=== PATIENT | female | born 1960 | race Asian ===

== ENCOUNTER 2016-08-27 22:49 | Emergency (ER) | payer OTHER ==
[~2016-08-27] VITALS: Ht 160 cm; Wt 75.7 kg
[~2016-08-27 22:49] MED LIST: AMLODIPINE BESYL5 MG ORAL; ASPIRIN81 MG ORAL; ATORVASTATIN CA20 MG ORAL; CYCLOBENZAPRINE10 MG ORAL; IBUPROFEN600 MG ORAL; KEFLEX500 MG PO; NORCO 5-325 TA1 EAC1 ORAL; ONDANSETRON ODT4 MG PO; PHENAZOPYRIDIN100 MG PO; SPIRONOLACTONE50 MG PO; TRAMADOL HCL50 MG ORAL; VICODIN 5-5001 EACH PO; cranberry PO
[2016-08-27] MEDS ORDERED: AMLODIPINE BES2.5 MG ORAL (23:05)
[2016-08-27] MEDS ORDERED: Norco 5mg/325mg tab ORAL ONE (23:45)
[2016-08-28 00:40] VITALS: BP 134/88
[2016-08-28 00:48] VITALS: BP 134/88
[2016-08-28] MEDS ORDERED: IBUPROFEN600 MG ORAL (00:49)
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
--- NOTE | 2016-08-28 11:45 | Diagnostic Imaging Report ---
Indication: PAIN Technique: 3 views of the cervical spine Comparison: none Findings: Bony alignment is normal. No prevertebral soft tissue swelling. Vertebral heights and disc spaces are preserved. No acute fractures. No dislocations. Impression: Negative
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
== END 2016-08-28 00:50 | disposition home or self-care (01) ==
LOC: EMR 23:15
DX: S16.1XXA Strain of muscle, fascia and tendon at neck level, initial encounter (principal); S39.012A Strain of muscle, fascia and tendon of lower back, initial encounter; E78.5 Hyperlipidemia, unspecified; I10 Essential (primary) hypertension; E11.9 Type 2 diabetes mellitus without complications; Z86.73 Personal history of transient ischemic attack (TIA), and cerebral infarction without residual deficits; Z88.0 Allergy status to penicillin; V43.52XA Car driver injured in collision with other type car in traffic accident, initial encounter; Y92.410 Unspecified street and highway as the place of occurrence of the external cause; Y99.8 Other external cause status
CPT/HCPCS: 72020; 72040; 99283

== ENCOUNTER 2019-06-24 00:31 | Inpatient (IN) | payer OTHER, MEDICAID ==
[~2019-06-24] VITALS: Ht 160 cm; Wt 79.4 kg
[~2019-06-24 00:31] MED LIST changes: +AMLODIPINE BES2.5 MG ORAL
--- NOTE | 2019-06-24 00:50 | NUR ---
ED Nurse Note: PT WALKED IN TO ED C/O CP, SOB. PT STATES VISITING URGENT CARE AND WAS TOLD THAT SHE HAS BRONCHITIS. PT NAD, TACHY 105. PT FAMILY AT BEDSIDE. PATIENT TEMP 99.3 AT BEDSIDE. PT DENIES N/V. WILL CONTINUE TO MONITOR PATIENT.
--- NOTE | 2019-06-24 01:00 | NUR ---
ED Nurse Note: URINE AND BLOOD COLLECTED AND SENT TO LAB.
--- NOTE | 2019-06-24 01:05 | NUR ---
ED Nurse Note: XR AT BEDSIDE.
[2019-06-24 01:10] LABS: BASOPHILS % (AUTO) 1.5 % (0.0-2.0); EOSINOPHILS % (AUTO) 0.4 % (0.0-3.0); HEMATOCRIT 38.9 % (37.0-47.0); HEMOGLOBIN 13.2 G/DL (12.0-16.0); LYMPHOCYTES % (AUTO) 6.5 % (20.0-45.0); MEAN CORPUSCULAR VOLUME 86 FL (80-99); NEUTROPHILS % (AUTO) 84.5 % (45.0-75.0); PLATELET COUNT 288 K/UL (150-450); RED BLOOD COUNT 4.53 M/UL (4.20-5.40); RED CELL DISTRIBUTION WIDTH 11.6 % (11.6-14.8); WHITE BLOOD COUNT 11.1 K/UL (4.8-10.8)
[2019-06-24 01:20] LABS: ANION GAP 13 mmol/L (5-15); BLOOD UREA NITROGEN 11 mg/dL (7-18); CALCIUM 8.5 MG/DL (8.5-10.1); CARBON DIOXIDE 25 MMOL/L (21-32); CHLORIDE 101 MMOL/L (98-107); CREATININE 0.9 MG/DL (0.55-1.30); POTASSIUM 3.9 MMOL/L (3.5-5.1); SODIUM 138 MMOL/L (136-145)
[2019-06-24 01:31] LABS: ALANINE AMINOTRANSFERASE 95 U/L (12-78); ALBUMIN 3.9 G/DL (3.4-5.0); ALKALINE PHOSPHATASE 70 U/L (46-116); ASPARTATE AMINO TRANSFERASE 53 U/L (15-37); BILIRUBIN,TOTAL 0.2 MG/DL (0.2-1.0); CREATINE KINASE 81 U/L (26-308); PHOSPHORUS 3.1 MG/DL (2.5-4.9)
[2019-06-24 01:32] LABS: INR 0.9 (0.9-1.1)
[2019-06-24] MEDS ORDERED: Oseltamivir 75mg cap ORAL STA (01:55)
--- NOTE | 2019-06-24 01:57 | Emergency Room Report ---
History of Present Illness General Chief Complaint: Chest Pain Source: Patient Present Illness HPI Patient has been ill for 8 days. She was treated with a Z-Gustabo. She continues to have a persistent cough muscle aches fevers chills. She did not receive influenza vaccination this year. She has mild chest pain and pressure with coughing. There are more muscle aches. She rates the pain 8/10 and generalized. Her appetite is poor and she feels generalized weakness. No palpitations, nausea, vomiting, diarrhea, dysuria, abdominal pain, shortness of breath, rashes, depression, anxiety, visual changes, dizziness. Allergies: Coded Allergies: PENICILLIN G (Verified Allergy, Mild, RESPIRATORY DISTRESS, 09/16/09) Patient History Past Medical History: see triage record Past Surgical History: hysterectomy Social History: Denies: smoking, alcohol use, drug use Social History Narrative Cares for disabled patients Now: No Reviewed Nursing Documentation: PMH: Agreed; PSxH: Agreed Nursing Documentation-PMH Hx Cardiac Problems: Yes Hx Hypertension: Yes Hx Diabetes: Yes Hx Cancer: No Hx Gastrointestinal Problems: No Hx Neurological Problems: Yes Hx Cerebrovascular Accident: Yes - 24 years ago Review of Systems All Other Systems: negative except mentioned in HPI Physical Exam Vital Signs Date Time Temp Pulse Resp B/P (MAP) Pulse Ox O2 Delivery O2 Flow Rate FiO2 06/24/19 00:40 87 18 127/78 (94) 96 Room Air Sp02 EP Interpretation: reviewed, normal General Appearance: no apparent distress, alert, GCS 15, other - Ill-appearing Head: normocephalic Eyes: bilateral eye normal inspection, bilateral eye PERRL, bilateral eye EOMI ENT: moist mucus membranes, pharyngeal erythema Neck: supple, no meningismus Respiratory: chest non-tender, lungs clear, normal breath sounds Cardiovascular #1: regular rate, rhythm, no edema Cardiovascular #2: 2+ radial (R) Gastrointestinal: normal inspection, normal bowel sounds, non tender, no mass, non-distended Genitourinary: no CVA tenderness Musculoskeletal: back normal, normal range of motion, no calf tenderness, gait/ station normal Neurologic: alert, oriented x3, speech normal, grossly normal Psychiatric: mood/affect normal Skin: no rash, warm/dry - Feels febrile Medical Decision Making Diagnostic Impression: Primary Impression: Influenza A Additional Impression: Elevated lactic acid level ER Course Patient presents with febrile illness and muscle aches after taking a Z-Gustabo a week ago. Differential includes pneumonia, sepsis, influenza, other viral infection, urinary tract infection amongst others. Patient evaluated with EKG, chest x-ray and labs. Patient treated with Tylenol and IV hydration. Fluid resuscitation begun. Patient placed on surveillance monitor. EKG without injury. Chest x-ray no infiltrates. Labs with normal white count. CMP unremarkable aside from minimally elevated glucose. Called with positive influenza A. In addition lactic acid of 2.6 noted. Fluid bolus was given. Tamiflu ordered. 1:56 patient with good capillary refill, normal mentation and improvement after Tylenol and fluid administration. No indication for other antibiotics at this time. (Sepsis reevaluation) Patient improved and admitted to the hospital. Laboratory Tests Test 06/24/19 00:50 06/24/19 02:30 06/24/19 02:50 White Blood Count 11.1 K/UL (4.8-10.8) H Red Blood Count 4.53 M/UL (4.20-5.40) Hemoglobin 13.2 G/DL (12.0-16.0) Hematocrit 38.9 % (37.0-47.0) Mean Corpuscular Volume 86 FL (80-99) Mean Corpuscular Hemoglobin 29.2 PG (27.0-31.0) Mean Corpuscular Hemoglobin Concent 34.1 G/DL (32.0-36.0) Red Cell Distribution Width 11.6 % (11.6-14.8) Platelet Count 288 K/UL (150-450) Mean Platelet Volume 6.5 FL (6.5-10.1) Neutrophils (%) (Auto) 84.5 % (45.0-75.0) H Lymphocytes (%) (Auto) 6.5 % (20.0-45.0) L Monocytes (%) (Auto) 7.0 % (1.0-10.0) Eosinophils (%) (Auto) 0.4 % (0.0-3.0) Basophils (%) (Auto) 1.5 % (0.0-2.0) Prothrombin Time 10.0 SEC (9.30-11.50) Prothrombin Time INR 0.9 (0.9-1.1) Activated Partial Thromboplast Time 27 SEC (23-33) Sodium Level 138 MMOL/L (136-145) Potassium Level 3.9 MMOL/L (3.5-5.1) Chloride Level 101 MMOL/L (98-107) Carbon Dioxide Level 25 MMOL/L (21-32) Anion Gap 13 mmol/L (5-15) Blood Urea Nitrogen 11 mg/dL (7-18) Creatinine 0.9 MG/DL (0.55-1.30) Estimate Glomerular Filtration Rate > 60 mL/min (>60) Glucose Level 144 MG/DL (74-106) H Lactic Acid Level 2.60 mmol/L (0.4-2.0) H 2.10 mmol/L (0.66-2.22) Calcium Level 8.5 MG/DL (8.5-10.1) Phosphorus Level 3.1 MG/DL (2.5-4.9) Magnesium Level 1.8 MG/DL (1.8-2.4) Total Bilirubin 0.2 MG/DL (0.2-1.0) Aspartate Amino Transferase (AST) 53 U/L (15-37) H Alanine Aminotransferase (ALT) 95 U/L (12-78) H Alkaline Phosphatase 70 U/L (46-116) Total Creatine Kinase 81 U/L (26-308) Troponin I 0.000 ng/mL (0.000-0.056) Pro-B-Type Natriuretic Peptide 38 pg/mL (0-125) Total Protein 7.8 G/DL (6.4-8.2) Albumin 3.9 G/DL (3.4-5.0) Globulin 3.9 g/dL Albumin/Globulin Ratio 1.0 (1.0-2.7) Lipase 128 U/L (73-393) Urine Color Pale yellow Urine Appearance Clear Urine pH 5 (4.5-8.0) Urine Specific [place] 1.015 (1.005-1.035) Urine Protein Negative (NEGATIVE) Urine Glucose (UA) Negative (NEGATIVE) Urine Ketones Negative (NEGATIVE) Urine Blood 2+ (NEGATIVE) H Urine Nitrite Negative (NEGATIVE) Urine Bilirubin Negative (NEGATIVE) Urine Urobilinogen Normal MG/DL (0.0-1.0) Urine Leukocyte Esterase Negative (NEGATIVE) Urine RBC 2-4 /HPF (0 - 2) H Urine WBC 0-2 /HPF (0 - 2) Urine Squamous Epithelial Cells Few /LPF (NONE/OCC) Urine Bacteria None /HPF (NONE) Microbiology Date/Time Source Procedure Growth Status 06/24/19 00:50 Nasal Nares - Final Complete 06/24/19 00:50 Nasal Nares - Final Complete EKG Diagnostic Results Rate: normal Rhythm: NSR ST Segments: no acute changes Rhythm Strip Diag. Results EP Interpretation: yes Rhythm: NSR, no PVC's, no ectopy Chest X-Ray Diagnostic Results Chest X-Ray Diagnostic Results : Chest X-Ray Ordered: Yes # of Views/Limited/Complete: 1 View Indication: Other EP Interpretation: Yes Interpretation: no consolidation, no effusion, no pneumothorax Impression: Other Electronically Signed by: Electronically signed by Dada Schroeder MD Last Vital Signs Date Time Temp Pulse Resp B/P (MAP) Pulse Ox O2 Delivery O2 Flow Rate FiO2 06/24/19 12:04 102.8 105 18 141/73 (95) 95 06/24/19 06:35 Room Air 06/24/19 03:51 98 These VS from floor. Patient was afebrile on admission to floor. Status: improved Disposition: ADMITTED INPATIENT Condition: Serious Referrals: NOT CHOSEN IPA/,REFERRING (PCP) Dada Schroeder MD Jun 24, 2019 01:57
--- NOTE | 2019-06-24 03:00 | NUR ---
ED Nurse Note: REFLEX LACTIC DRAWN AND SENT TO LAB.
[2019-06-24 03:41] LABS: APPEARANCE,URINE CLEAR; BILIRUBIN, URINE NEGATIVE (NEGATIVE); COLOR,URINE PALE YELLOW; GLUCOSE, URINE (UA) NEGATIVE (NEGATIVE); KETONES,URINE NEGATIVE (NEGATIVE); LEUKOCYTE ESTERASE ,URINE NEGATIVE (NEGATIVE); NITRITE,URINE NEGATIVE (NEGATIVE); PH,URINE 5 (4.5-8.0); PROTEIN,URINE NEGATIVE (NEGATIVE); UROBILINOGEN,URINE NORMAL MG/DL (0.0-1.0)
[2019-06-24 03:51] VITALS: BP 126/69
--- NOTE | 2019-06-24 04:00 | NUR ---
ED Nurse Note: GAVE REPORT TO LUDY HERNANDEZ FOR 414-2
--- NOTE | 2019-06-24 04:10 | NUR ---
TRANSFER TO FLOOR: Patient transferred to [facility] via gurney in stable condition accompanied by 1 tech as ordered, per dr. Morales . Report given to Jhon HERNANDEZ. Belongings sent with patient.
[2019-06-24 04:30] VITALS: BP 130/78
--- NOTE | 2019-06-24 05:15 | NUR ---
NURSE NOTES: Patient received from ED. Alert, oriented awake. Respiration is even and unlabored. NO complaint of pain or discomfort at the moment. Skin is warm and dry to touch. patient still in home clothes, prefer to have at the moment. IV site noted. Oriented patient to the room. Call light is at bedside. Will continue plan of care. Will call md for admit orders.
[2019-06-24] MEDS ORDERED: METFORMIN HCL500 M1 ORAL (05:32)
[2019-06-24] MEDS ORDERED: METFORMIN HCL1000 M1 ORAL (05:32)
--- NOTE | 2019-06-24 06:30 | NUR ---
NURSE NOTES: Doctor Andrew made aware of lactic acid, no orders at the moment.
--- NOTE | 2019-06-24 07:26 | NUR ---
HAND-OFF: Report given to JANEEN Rodriguez.
--- NOTE | 2019-06-24 07:40 | NUR ---
NURSE NOTES: Patient received from DAVID Holguin . A/A/Ox4. ambulatory. Respiration is even and unlabored. No complaint of pain or discomfort at the moment. Skin is warm and dry to touch. patient still on her home clothes. instructed to change to hosp gown. refuses for now and will f/u for SCD's. accdg from the central supply they ran out. IV site noted as patent and intact. bed is in the lowest position. siderails are up x2. Call light is at bedside. Will continue plan of care.
[2019-06-24 08:00] VITALS: BP 134/64
--- NOTE | 2019-06-24 10:15 | Diagnostic Imaging Report ---
Indication: Cough Technique: One view of the chest Comparison: 09/07/2013 Findings: Irregular dense 15 x 7 mm opacity projects in the right midlung, not evident previously. Patient is rotated to the right. Hazy opacity in the left hemithorax most likely represents overlying soft tissue. No definite acute infiltrates, effusions, or congestion. The heart size is upper limits of normal. Impression: Irregular dense right lung opacity, possibly calcified, new since 09/07/2013. Further evaluation with CT scan should be considered. No definite acute process Findings discussed by phone with Dr. Lindsay at the time of interpretation
--- NOTE | 2019-06-24 11:30 | NUR ---
NURSE NOTES: patient temp 102.8. applied cooling measures. made a call to Dr. Rahban. Santos awaiting for a call back. will cont to monitor. Addendum: 06/24/19 at 1232 [address] AVILA LVN [address] Morales made aware of the temp. awaiting for a callback.
[2019-06-24 12:04] VITALS: BP 141/73
--- NOTE | 2019-06-24 15:45 | Consultation ---
DATE OF CONSULTATION: 06/24/2019 PULMONARY CONSULTATION CONSULTING PHYSICIAN: Olivier Lindsay M.D. REFERRING PHYSICIAN: Adams Morales M.D. 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 She presented with cough and rhinorrhea. She also reported body aches. She states that she has been in for about a week. She states she has had resident in the facility who has had influenza. She has still has not received the vaccine. The patient was seen and worked up in the emergency room and a subsequent influenza A antigen was found to be positive. The patient is admitted to the hospital for subsequent management and care. PAST MEDICAL HISTORY: Notable for hypertension and diabetes. She denies any cardiac history. No pulmonary issues. She also reports a remote history of CVA. PAST SURGICAL HISTORY: None. ALLERGIES: Allergy to penicillin. REVIEW OF SYSTEMS: Denies any headaches, hematemesis, melena, hematochezia, or weight loss. PHYSICAL EXAMINATION: VITAL SIGNS: Blood pressure 120/70, heart rate 84, respirations 20, she is afebrile with a 90% room air. GENERAL: Reveals a 59-year-old female. HEENT: Unremarkable. CHEST: Clear breath sounds bilaterally. Normal heart sounds. ABDOMEN: Soft. EXTREMITIES: There is no edema. LABORATORY AND DIAGNOSTIC DATA: Lab testing shows white count 11,000, otherwise normal CBC and BMP. Lactic acid 2.6, now 2.1. Glucose 144. Mild elevation of AST and ALT are noted. Coags are negative. Urinalysis is negative. X-ray of chest per report shows clear lung wolfe bilaterally. IMPRESSION: 1. Acute influenza pneumonia/bronchitis. 2. Hypertension. 3. Diabetes. DISCUSSION: Agree with admission and care. The patient needs IV fluids, which will be started. We will initiate Tamiflu. We will follow carefully. Olivier Lindsay M.D. DR: STEFFEN JOB#: [id number] CC:
[2019-06-24 16:00] VITALS: BP 131/69
--- NOTE | 2019-06-24 16:03 | NUR ---
CASE MANAGEMENT:INITIAL REVIEW 40 YR OLD FEMALE FROM HOME CC; CHEST PAIN SI;INFLUENZA A. ELEVATED LACTIC ACID. 102.8 106 20 141/73 95% ON RA WBC 11.1 LAC ACID 2.60 AST 53 ALT 95 IS;ACETAMINOPHEN PO X1 IVF NS BOLUS X1 TAMILFLU PO X1 STAT ADMITTED TO MED SURG MED SURG STATUS DCP;FROM HOME
[2019-06-24] MEDS: Oseltamivir 75mg cap ORAL SCH (17:04)
[2019-06-24] MEDS: Levofloxacin 750mg tab ORAL SCH (17:04)
--- NOTE | 2019-06-24 18:54 | NUR ---
HAND-OFF: Report given to Abdoulaye.
--- NOTE | 2019-06-24 19:30 | NUR ---
NURSE NOTES: Pt. received from JANEEN Grijalva. Pt. AAOx4 on room air, no complaints of pain and no indications of SOB at this time. IV left AC 20g asymptomatic, intact, and patent; running NS 75cc/hr. Bed is low and locked, side rails x2 up, and call light is in reach. Will continue to monitor.
[2019-06-24 20:00] VITALS: BP 110/67
--- NOTE | 2019-06-24 20:13 | General Progress Note ---
Assessment/Plan Assessment/Plan: GI CONSULT Dictated Suspect abnormal LFT due to fever/sepsis Will follow check ultrasound Thank you Theresa Velez MD Subjective Allergies: Coded Allergies: PENICILLIN G (Verified Allergy, Mild, RESPIRATORY DISTRESS, 09/16/09) Objective Last 24 Hour Vital Signs Date Time Temp Pulse Resp B/P (MAP) Pulse Ox O2 Delivery O2 Flow Rate FiO2 06/24/19 16:00 98.9 93 19 131/69 (89) 94 06/24/19 15:37 98.9 06/24/19 15:30 99.5 06/24/19 12:04 102.8 105 18 141/73 (95) 95 06/24/19 08:00 98.6 106 20 134/64 (87) 95 06/24/19 06:35 Room Air 06/24/19 04:30 97.3 95 16 130/78 (95) 98 06/24/19 04:10 99.2 92 18 122/69 98 Room Air 06/24/19 03:51 99.3 92 18 126/69 98 Room Air 06/24/19 03:51 92 18 Room Air 98 06/24/19 01:50 99.3 06/24/19 00:40 87 18 127/78 (94) 96 Room Air Intake and Output 06/23/19 06/24/19 19:00 07:00 Intake Total 4000 ml Balance 4000 ml Intake Oral 0 ml IV Total 4000 ml Laboratory Tests 06/24/19 00:50: White Blood Count 11.1H, Red Blood Count 4.53, Hemoglobin 13.2, Hematocrit 38.9 , Mean Corpuscular Volume 86, Mean Corpuscular Hemoglobin 29.2, Mean Corpuscular Hemoglobin Concent 34.1, Red Cell Distribution Width 11.6, Platelet Count 288, Mean Platelet Volume 6.5, Neutrophils (%) (Auto) 84.5H, Lymphocytes ( %) (Auto) 6.5L, Monocytes (%) (Auto) 7.0, Eosinophils (%) (Auto) 0.4, Basophils (%) (Auto) 1.5, Prothrombin Time 10.0, Prothromb Time International Ratio 0.9, Activated Partial Thromboplast Time 27, Sodium Level 138, Potassium Level 3.9, Chloride Level 101, Carbon Dioxide Level 25, Anion Gap 13, Blood Urea Nitrogen 11, Creatinine 0.9, Estimat Glomerular Filtration Rate > 60, Glucose Level 144H , Lactic Acid Level 2.60H, Calcium Level 8.5, Phosphorus Level 3.1, Magnesium Level 1.8, Total Bilirubin 0.2, Aspartate Amino Transf (AST/SGOT) 53H, Alanine Aminotransferase (ALT/SGPT) 95H, Alkaline Phosphatase 70, Total Creatine Kinase 81, Troponin I 0.000, Pro-B-Type Natriuretic Peptide 38, Total Protein 7.8, Albumin 3.9, Globulin 3.9, Albumin/Globulin Ratio 1.0, Lipase 128 06/24/19 02:30: Lactic Acid Level 2.10 06/24/19 02:50: Urine Color Pale yellow, Urine Appearance Clear, Urine pH 5, Urine Specific [place] 1.015, Urine Protein Negative, Urine Glucose (UA) Negative, Urine Ketones Negative, Urine Blood 2+H, Urine Nitrite Negative, Urine Bilirubin Negative, Urine Urobilinogen Normal, Urine Leukocyte Esterase Negative, Urine RBC 2-4H, Urine WBC 0-2, Urine Squamous Epithelial Cells Few, Urine Bacteria None Height (Feet): 5 Height (Inches): 3.00 Weight (Pounds): 175 Theresa Velez MD Jun 24, 2019 20:13
--- NOTE | 2019-06-24 22:15 | Consultation ---
DATE OF CONSULTATION: 06/24/2019 GASTROENTEROLOGY CONSULTATION CHIEF COMPLAINT: I was asked to see this patient by Dr. Adams Morales for evaluation of abnormal liver tests. HISTORY OF PRESENT ILLNESS: The patient is a pleasant 59-year-old woman who was in her usual state of health until about a week ago when she started having flu-like symptoms. She came to the emergency room when she began too sick and was admitted with diagnosis of influenza. She was also found to have abnormal liver tests, which is new for her. She has had no previous history of hepatitis, abdominal pain, or liver disorders. She had a colonoscopy just a year ago. PAST MEDICAL HISTORY: History of hypercholesterolemia. FAMILY HISTORY: Noncontributory. SOCIAL HISTORY: The patient does not smoke or drink alcohol. REVIEW OF SYSTEMS: Otherwise negative. PHYSICAL EXAMINATION: GENERAL: Debilitated woman seen in her room. HEENT: Normocephalic and atraumatic. Sclerae anicteric. CHEST: Revealed coarse rhonchi. CARDIOVASCULAR: Revealed regular rate. ABDOMEN: Soft and nontender with good bowel sounds. EXTREMITIES: Revealed no edema. LABORATORY DATA: Noted. ASSESSMENT: The patient presents with mild elevation of liver tests in the setting of acute influenza. It is possible that her abnormal liver tests is from acute illness and therefore for the time being, she can be followed conservatively. I will follow her liver tests and also check an abdominal ultrasound to check hepatitis serologies. Should do liver test abnormalities resolve, then no further workup is necessary. If it further persist, then the patient will undergo stepwise liver evaluation. RECOMMENDATIONS: Per above discussion and per orders written in the chart. Thank you for asking me to participate in the care of this patient. Theresa eVlez M.D. DR: [place] JOB#: [id number] CC:
--- NOTE | 2019-06-24 23:00 | Consultation ---
DATE OF CONSULTATION: 06/24/2019 INFECTIOUS DISEASE CONSULTATION CONSULTING PHYSICIAN: Kerwin Pimentel M.D. PRIMARY ATTENDING PHYSICIAN: Adams Morales M.D. REASON FOR CONSULT: Sepsis and influenza A. HISTORY OF PRESENT ILLNESS: This is a 59-year-old [place] female, admitted today complaining of feeling ill, cough, fever, chills, and muscle pain. Has borderline leukocytosis of 11.1. Developed fever of 102.8 with tachycardia of 105. PAST MEDICAL HISTORY: Significant for diabetes and hypertension. MEDICATIONS: Tamiflu, ibuprofen, and sodium chloride. ALLERGIES: Allergic to penicillin. 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 Denies alcohol, drug abuse, or smoking. . Two grownup children. Originally from [place]. REVIEW OF SYSTEMS: Fever, chills, and dry cough. No nausea. No vomiting. No diarrhea. No problem passing urine. PHYSICAL EXAMINATION: VITAL SIGNS: Temperature 102.8, pulse 105, and blood pressure 141/73. GENERAL APPEARANCE: A well-developed, overweight, in no acute distress. HEAD AND NECK: Reynolds conjunctivae. No oral lesion. HEART: Tachycardic. LUNGS: Clear. ABDOMEN: Soft and nontender. EXTREMITIES: She has no edema. LABORATORY AND DIAGNOSTIC DATA: WBC 11.1, hemoglobin 13.2, hematocrit 38.2, and platelets 288,000. Lactic acid was 2.6, went back to normal limits. Has mild elevation in AST and ALT with AST 53 and ALT 95. Glucose is 444. Sodium 138, potassium 3.9, chloride 101, bicarbonate 20, BUN 11, and creatinine 0.9. Influenza A antigen was positive. Chest x-ray showed irregular dense right lung opacity developed since 2013. For the evaluation, a CT scan should be considered. IMPRESSION: Sepsis with fever and tachycardia and borderline leukocytosis. Has influenza A. Has abnormal chest x-ray. Has diabetes and hypertension. Has lactic acidosis. RECOMMENDATION: Continue Tamiflu. We will add Levaquin. We will follow up the clinical course and chest x-ray, maybe the CT scan of the chest. At the end of my exam, I thank Dr. Morales for involving me in the care of this patient. Kerwin Pimentel M.D. DR: AMBAR JOB#: [id number] CC: BAIRON
[2019-06-25] VITALS: BP 145/77
[2019-06-25 04:00] VITALS: BP 140/85
--- NOTE | 2019-06-25 04:30 | History and Physical Report ---
DATE OF ADMISSION: 06/24/2019 HISTORY OF PRESENT ILLNESS: The patient comes in, admitted for influenza virus. The patient has been having cough, myalgia, headache, vomiting, and chills for the past 10 days. The patient took Z-Gustabo without relief. She went to urgent care and was given doxycycline; however, it was not getting better. She was readmitted for influenza pneumonia. The patient feels weak, however, is not in any respiratory distress. The patient also is admitted for the above-mentioned influenza A as well as elevated LFTs as well. Denies jaundice. Denies nausea, vomiting, diarrhea. Denies chills. Denies wheezing. PAST MEDICAL HISTORY: Significant for hyperlipidemia, NIDDM. PAST SURGICAL HISTORY: Hysterectomy. ALLERGIES: To penicillin. MEDICATIONS: Aspirin, Lipitor, metformin. FAMILY HISTORY: Noncontributory. SOCIAL HISTORY: Denies history of smoking, alcohol, or illicit drugs. REVIEW OF SYSTEMS: HEENT: Denies headaches. RESPIRATORY: Denies shortness of breath. Does have cough for the past 10 days. CARDIOVASCULAR: Denies chest pain. GASTROINTESTINAL: Does have vomiting. Denies chills. EXTREMITIES: Denies pain in lower extremities. CENTRAL NERVOUS SYSTEM: The patient is complaining of headache. PHYSICAL EXAMINATION: VITAL SIGNS: Temperature is 98.6, pulse is 106, blood pressure 134/64. HEENT: PERRLA. NECK: Supple. No lymphadenopathy. CHEST: Clear to auscultation. CARDIOVASCULAR: Tachycardic. GASTROINTESTINAL: Soft, nontender, nondistended. No organomegaly. EXTREMITIES: No edema. Moves all four extremities. CENTRAL NERVOUS SYSTEM: Sensory intact to light touch. Reflexes equal on both sides. Moves all four extremities. LABORATORY AND DIAGNOSTIC DATA: WBC of 9.1, hemoglobin 13.2, platelets of 288. Sodium 138, potassium 3.9, BUN of 11, creatinine of 0.9. Lactate of 2.6. ASSESSMENT/PLAN: 1. The patient is being treated for influenza virus. 2. Elevated LFTs. 3. Respiratory insufficiency. 4. Pneumonia. The patient will be basically consulted by Dr. Kerwin Pimentel. Further antibiotics per Dr. Suresh basically. We will monitor the patient closely. The patient is not hypoxic at this point. We will monitor the patient very closely. The patient also has high temperature, elevated LFTs and I have consulted Dr. Kerwin Pimentel and Dr. Velez for the above problems . Adams Morales M.D. DR: Theron JOB#: [id number] CC:
--- NOTE | 2019-06-25 07:00 | NUR ---
NURSE NOTES: Handoff received from DAVID Stanford. Patient received awake and alert and able to make needs known, no acute signs of distress noted. patient IV is clean dry and intact running prescribed fluids. Patient is on contact precautions for Flu. Bed in the low and locked position with call light within reach, will continue to monitor patient.
--- NOTE | 2019-06-25 07:12 | NUR ---
HAND-OFF: Report given to DAVID Maguire.
[2019-06-25 07:27] LABS: ALANINE AMINOTRANSFERASE 82 U/L (12-78); ALBUMIN 3.2 G/DL (3.4-5.0); ALBUMIN/GLOBULIN RATIO 0.8 (1.0-2.7); ALKALINE PHOSPHATASE 56 U/L (46-116); ANION GAP 9 mmol/L (5-15); ASPARTATE AMINO TRANSFERASE 56 U/L (15-37); BILIRUBIN,TOTAL 0.2 MG/DL (0.2-1.0); BLOOD UREA NITROGEN 10 mg/dL (7-18); CARBON DIOXIDE 27 MMOL/L (21-32); CHLORIDE 106 MMOL/L (98-107); CREATININE 0.7 MG/DL (0.55-1.30); POTASSIUM 4.3 MMOL/L (3.5-5.1); SODIUM 142 MMOL/L (136-145)
[2019-06-25 08:00] VITALS: BP 147/79
[2019-06-25] MEDS: Oseltamivir 75mg cap ORAL SCH ×2 (08:39→17:17)
--- NOTE | 2019-06-25 10:31 | Infectious Diseases Prog Note ---
Assessment/Plan Assessment/Plan IMPRESSION: Sepsis with fever and tachycardia and borderline leukocytosis. Influenza A. DM hypertension. lactic acidosis, resolved Abnormal CXR Elevated transaminase RECOMMENDATION: Continue Tamiflu & Levaquin. We will follow abdominal US & CT scan of the chest. Subjective ROS Limited/Unobtainable: No Constitutional: Reports: other - feels slightly better Respiratory: Reports: productive cough Cardiovascular: Reports: no symptoms Gastrointestinal/Abdominal: Reports: no symptoms Genitourinary: Reports: no symptoms Allergies: Coded Allergies: PENICILLIN G (Verified Allergy, Mild, RESPIRATORY DISTRESS, 09/16/09) Objective Vital Signs Last 24 Hour Vital Signs Date Time Temp Pulse Resp B/P (MAP) Pulse Ox O2 Delivery O2 Flow Rate FiO2 06/25/19 08:45 Room Air 06/25/19 08:00 99.9 82 20 147/79 (101) 94 06/25/19 04:00 97.0 86 16 140/85 (103) 96 06/25/19 00:00 98.1 81 16 145/77 (99) 97 06/24/19 21:00 Room Air 06/24/19 20:00 97.7 77 12 110/67 (81) 96 06/24/19 16:00 98.9 93 19 131/69 (89) 94 06/24/19 15:37 98.9 06/24/19 15:30 99.5 06/24/19 12:04 102.8 105 18 141/73 (95) 95 Height (Feet): 5 Height (Inches): 3.00 Weight (Pounds): 175 General Appearance: no acute distress HEENT: mucous membranes moist Respiratory/Chest: lungs clear Cardiovascular: normal rate Abdomen: soft, non tender Extremities: no edema Neurologic/Psychiatric: alert, oriented x 3, responsive Microbiology Date/Time Source Procedure Growth Status 06/24/19 00:50 Blood Blood Culture - Preliminary NO GROWTH AFTER 24 HOURS Resulted 06/24/19 00:40 Blood Blood Culture - Preliminary NO GROWTH AFTER 24 HOURS Resulted 06/24/19 00:50 Nasal Nares - Final Complete 06/24/19 00:50 Nasal Nares - Final Complete Laboratory Tests Test 06/25/19 05:35 Sodium Level 142 MMOL/L (136-145) Potassium Level 4.3 MMOL/L (3.5-5.1) Chloride Level 106 MMOL/L (98-107) Carbon Dioxide Level 27 MMOL/L (21-32) Anion Gap 9 mmol/L (5-15) Blood Urea Nitrogen 10 mg/dL (7-18) Creatinine 0.7 MG/DL (0.55-1.30) Estimat Glomerular Filtration Rate > 60 mL/min (>60) Glucose Level 125 MG/DL (74-106) H Calcium Level 8.0 MG/DL (8.5-10.1) L Total Bilirubin 0.2 MG/DL (0.2-1.0) Aspartate Amino Transf (AST/SGOT) 56 U/L (15-37) H Alanine Aminotransferase (ALT/SGPT) 82 U/L (12-78) H Alkaline Phosphatase 56 U/L (46-116) Total Protein 7.1 G/DL (6.4-8.2) Albumin 3.2 G/DL (3.4-5.0) L Globulin 3.9 g/dL Albumin/Globulin Ratio 0.8 (1.0-2.7) L Hepatitis A IgM Antibody Pending Hepatitis B Surface Antigen Pending Hepatitis B Core IgM Antibody Pending Hepatitis C Antibody Pending Current Medications Medications (Trade) Dose Ordered Sig/Darcie Route PRN Reason Start Time Stop Time Status Last Admin Dose Admin Levofloxacin (Levaquin) 750 mg Q24H ORAL 06/24/19 17:00 07/01/19 16:59 06/24/19 17:04 Oseltamivir Phosphate (Tamiflu) 75 mg TWICE A DAY ORAL 06/24/19 18:00 06/29/19 17:59 06/25/19 08:39 Sodium Chloride 1,000 ml @ 75 mls/hr [id number] IV 06/24/19 09:45 07/24/19 09:44 06/24/19 11:18 Kerwin Pimentel MD Jun 25, 2019 10:31
--- NOTE | 2019-06-25 11:11 | NUR ---
NURSE NOTES: Patient having abdominal ultrasound procedure.
--- NOTE | 2019-06-25 11:39 | NUR ---
NURSE NOTES: abdominal ultrasound complete. Called and told CT that patient is ready to be taken down for procedure.
[2019-06-25 12:00] VITALS: BP 130/79
--- NOTE | 2019-06-25 12:55 | Diagnostic Imaging Report ---
Clinical Indication: Right lung nodule seen on prior chest radiograph Technique: Spiral acquisitions obtained through the chest. No IV contrast utilized, reason not stated. Multiplanar reconstructions generated. Total dose length product 720 mGycm. CTDIvol(s) 16 mGy. Dose reduction achieved using automated exposure control Comparison: none. Reference made to chest radiograph 06/24/2019 Findings: Patchy nodular parenchymal opacities, patchy faint groundglass opacities and more confluent opacities are seen in the right lung, predominantly within the right middle lobe but also to a lesser extent within the inferior right upper lobe and in the right lower lobe. No discrete dense nodule seen to correspond to the opacity described on recent chest radiograph is demonstrated. Minimal atelectasis is seen in the posterior inferior lingula. The left lung is otherwise clear. No pleural effusions. The heart is upper limits normal in size. No pericardial effusion. No mediastinal or hilar mass or adenopathy. The included portion of the thyroid is unremarkable. No axillary or chest wall mass or adenopathy. The included upper abdominal anatomy demonstrates diffuse hepatic low-attenuation, consistent with fatty change. There is a cyst in the interpolar region of the left kidney. The bones are unremarkable. Impression: Nodular and confluent parenchymal opacities in the right lung, as described, predominantly involving the right middle lobe. Findings most likely represent multifocal pneumonia. Noninfectious inflammatory etiologies also possible. Pulmonary edema, mass lesions deemed much less likely. No findings to correspond to the abnormality scribed on recent chest radiograph. This may have been an area of atelectasis or an artifact. Diffuse hepatic low-attenuation, consistent with fatty change Incidental finding of left renal cyst The CT scanner at [facility] is accredited by the [employer] and the scans are performed using protocols designed to limit radiation exposure to as low as reasonably achievable to attain images of sufficient resolution adequate for diagnostic evaluation.
--- NOTE | 2019-06-25 14:32 | NUR ---
CASE MANAGEMENT:REVIEW SI;INFLUENZA 99.9 86 20 148/79 94% ON RA IS;TAMIFLU PO BID LEVAQUIN PO Q24 HRS IVF NS @ 75ML/HR MED SURG STATUS DCP;FROM HOME
--- NOTE | 2019-06-25 14:42 | Diagnostic Imaging Report ---
Indication: Abnormal liver function tests Technique: Kumar-scale and duplex images of the upper abdomen were obtained Comparison: none Findings: Gallbladder is unremarkable, without stones, wall thickening, nor pericholecystic fluid. Sonographic Man's sign is negative. Common bile duct measures 3 mm in diameter. No intrahepatic biliary ductal dilatation. Liver demonstrates diffusely increased echogenicity, consistent with diffuse hepatocellular disease, most likely fatty change. Portal vein and hepatic veins are patent. Pancreas is unremarkable. Spleen is unremarkable. Left kidney measures 10.5 cm in length. Right kidney measures 10.7 cm length. Both kidneys demonstrate normal echogenicity. There is no hydronephrosis. Left kidney demonstrates an interpolar region cyst . Non-aneurysmal abdominal aorta . Impression: Negative for gallstones or dilated bile ducts Liver demonstrates diffusely increased echogenicity, consistent with diffuse hepatocellular disease, most likely fatty change. Incidental finding left renal cyst
[2019-06-25 16:00] VITALS: BP 138/79
--- NOTE | 2019-06-25 16:24 | Pulmonology Progress Note ---
Assessment/Plan Assessment/Plan IMPRESSION: 1. Acute influenza pneumonia/bronchitis. 2. Hypertension. 3. Diabetes. DISCUSSION: Continue fluids and Tamiflu Overall better I will follow Subjective Interval Events: None new Constitutional: Reports: no symptoms HEENT: Repors: no symptoms Respiratory: Reports: no symptoms Cardiovascular: Reports: no symptoms Genitourinary: Reports: no symptoms Allergies: Coded Allergies: PENICILLIN G (Verified Allergy, Mild, RESPIRATORY DISTRESS, 09/16/09) Objective Last 24 Hour Vital Signs Date Time Temp Pulse Resp B/P (MAP) Pulse Ox O2 Delivery O2 Flow Rate FiO2 06/25/19 12:00 99.1 82 20 130/79 (96) 98 06/25/19 08:45 Room Air 06/25/19 08:00 99.9 82 20 147/79 (101) 94 06/25/19 04:00 97.0 86 16 140/85 (103) 96 06/25/19 00:00 98.1 81 16 145/77 (99) 97 06/24/19 21:00 Room Air 06/24/19 20:00 97.7 77 12 110/67 (81) 96 Intake and Output 06/24/19 06/25/19 19:00 07:00 Intake Total 600 ml 1085 ml Balance 600 ml 1085 ml Intake Oral 600 ml IV Total 825 ml Other 260 ml # Voids 3 2 General Appearance: no acute distress HEENT: normocephalic Respiratory/Chest: chest wall non-tender Cardiovascular: normal peripheral pulses, normal rate Abdomen: normal bowel sounds Microbiology Date/Time Source Procedure Growth Status 06/24/19 00:50 Blood Blood Culture - Preliminary NO GROWTH AFTER 24 HOURS Resulted 06/24/19 00:40 Blood Blood Culture - Preliminary NO GROWTH AFTER 24 HOURS Resulted 06/24/19 00:50 Nasal Nares - Final Complete 06/24/19 00:50 Nasal Nares - Final Complete Laboratory Tests 06/25/19 05:35: Sodium Level 142, Potassium Level 4.3, Chloride Level 106, Carbon Dioxide Level 27, Anion Gap 9, Blood Urea Nitrogen 10, Creatinine 0.7, Estimat Glomerular Filtration Rate > 60, Glucose Level 125H, Calcium Level 8.0L, Total Bilirubin 0.2, Aspartate Amino Transf (AST/SGOT) 56H, Alanine Aminotransferase (ALT/SGPT) 82H, Alkaline Phosphatase 56, Total Protein 7.1, Albumin 3.2L, Globulin 3.9, Albumin/Globulin Ratio 0.8L, Hepatitis A IgM Antibody [Pending], Hepatitis B Surface Antigen [Pending], Hepatitis B Core IgM Antibody [Pending], Hepatitis C Antibody [Pending] Current Medications Medications (Trade) Dose Ordered Sig/Darcie Route PRN Reason Start Time Stop Time Status Last Admin Dose Admin Levofloxacin (Levaquin) 750 mg Q24H ORAL 06/24/19 17:00 07/01/19 16:59 06/24/19 17:04 Oseltamivir Phosphate (Tamiflu) 75 mg TWICE A DAY ORAL 06/24/19 18:00 06/29/19 17:59 06/25/19 08:39 Sodium Chloride 1,000 ml @ 75 mls/hr [id number] IV 06/24/19 09:45 07/24/19 09:44 06/25/19 10:55 Olivier Lindsay MD Jun 25, 2019 16:24
[2019-06-25] MEDS: Levofloxacin 750mg tab ORAL SCH (17:17)
--- NOTE | 2019-06-25 19:00 | NUR ---
HAND-OFF: Report given to DAVID Lu.
--- NOTE | 2019-06-25 19:50 | NUR ---
HAND-OFF: Report given to DAVID Lu.
[2019-06-25 20:00] VITALS: BP 137/82
--- NOTE | 2019-06-25 20:00 | NUR ---
NURSE NOTES: Received patient in bed, awake alert, oriented x 4, able to make her needs known, IV site is dry clean and intact. Call light is within reach, bed is lowered, locked, alarm is on, will continue to monitor for comfort and safety.
--- NOTE | 2019-06-25 21:40 | General Progress Note ---
Assessment/Plan Assessment/Plan: Assessment - abnormal LFT - Influenza Recommendations - follow LFT - antivirals - f/u hepatitis serologies Subjective Allergies: Coded Allergies: PENICILLIN G (Verified Allergy, Mild, RESPIRATORY DISTRESS, 09/16/09) Subjective Feels better breathing better d/w patient re labs Objective Last 24 Hour Vital Signs Date Time Temp Pulse Resp B/P (MAP) Pulse Ox O2 Delivery O2 Flow Rate FiO2 06/25/19 16:00 99.0 81 20 138/79 (98) 98 06/25/19 12:00 99.1 82 20 130/79 (96) 98 06/25/19 08:45 Room Air 06/25/19 08:00 99.9 82 20 147/79 (101) 94 06/25/19 04:00 97.0 86 16 140/85 (103) 96 06/25/19 00:00 98.1 81 16 145/77 (99) 97 Intake and Output 06/24/19 06/25/19 19:00 07:00 Intake Total 600 ml 1085 ml Balance 600 ml 1085 ml Intake Oral 600 ml IV Total 825 ml Other 260 ml # Voids 3 2 Laboratory Tests 06/25/19 05:35: Sodium Level 142, Potassium Level 4.3, Chloride Level 106, Carbon Dioxide Level 27, Anion Gap 9, Blood Urea Nitrogen 10, Creatinine 0.7, Estimat Glomerular Filtration Rate > 60, Glucose Level 125H, Calcium Level 8.0L, Total Bilirubin 0.2, Aspartate Amino Transf (AST/SGOT) 56H, Alanine Aminotransferase (ALT/SGPT) 82H, Alkaline Phosphatase 56, Total Protein 7.1, Albumin 3.2L, Globulin 3.9, Albumin/Globulin Ratio 0.8L, Hepatitis A IgM Antibody [Pending], Hepatitis B Surface Antigen [Pending], Hepatitis B Core IgM Antibody [Pending], Hepatitis C Antibody [Pending] Height (Feet): 5 Height (Inches): 3.00 Weight (Pounds): 175 Objective WDWN NCAT supple CTA RR abd soft ND NT no edema Theresa Velez MD Jun 25, 2019 21:40
--- NOTE | 2019-06-25 21:42 | General Progress Note ---
Assessment/Plan Problem List: (1) Influenza ICD Codes: J11.1 - Influenza due to unidentified influenza virus with other respiratory manifestations SNOMED: 0202076 (2) Elevated lactic acid level ICD Codes: R79.89 - Other specified abnormal findings of blood chemistry SNOMED: 8951892 (3) Lumbar pain ICD Codes: M54.5 - Low back pain SNOMED: 168693376 (4) Chest pain with high risk of acute coronary syndrome Status: progressing Assessment/Plan: sob and cough improving influenza pna afebrile abx per id Subjective ROS Limited/Unobtainable: Yes Allergies: Coded Allergies: PENICILLIN G (Verified Allergy, Mild, RESPIRATORY DISTRESS, 09/16/09) Objective Last 24 Hour Vital Signs Date Time Temp Pulse Resp B/P (MAP) Pulse Ox O2 Delivery O2 Flow Rate FiO2 06/25/19 16:00 99.0 81 20 138/79 (98) 98 06/25/19 12:00 99.1 82 20 130/79 (96) 98 06/25/19 08:45 Room Air 06/25/19 08:00 99.9 82 20 147/79 (101) 94 06/25/19 04:00 97.0 86 16 140/85 (103) 96 06/25/19 00:00 98.1 81 16 145/77 (99) 97 Intake and Output 06/24/19 06/25/19 19:00 07:00 Intake Total 600 ml 1085 ml Balance 600 ml 1085 ml Intake Oral 600 ml IV Total 825 ml Other 260 ml # Voids 3 2 Laboratory Tests 06/25/19 05:35: Sodium Level 142, Potassium Level 4.3, Chloride Level 106, Carbon Dioxide Level 27, Anion Gap 9, Blood Urea Nitrogen 10, Creatinine 0.7, Estimat Glomerular Filtration Rate > 60, Glucose Level 125H, Calcium Level 8.0L, Total Bilirubin 0.2, Aspartate Amino Transf (AST/SGOT) 56H, Alanine Aminotransferase (ALT/SGPT) 82H, Alkaline Phosphatase 56, Total Protein 7.1, Albumin 3.2L, Globulin 3.9, Albumin/Globulin Ratio 0.8L, Hepatitis A IgM Antibody [Pending], Hepatitis B Surface Antigen [Pending], Hepatitis B Core IgM Antibody [Pending], Hepatitis C Antibody [Pending] Height (Feet): 5 Height (Inches): 3.00 Weight (Pounds): 175 Cardiovascular: normal peripheral pulses Respiratory/Chest: lungs clear Abdomen: soft Adams Morales MD Jun 25, 2019 21:42
[2019-06-26] VITALS: BP 136/78
[2019-06-26 04:00] VITALS: BP 129/68
--- NOTE | 2019-06-26 07:24 | NUR ---
HAND-OFF: Report given to Valentine VERNON.
--- NOTE | 2019-06-26 07:25 | NUR ---
NURSE NOTES: Received patient in bed, awake alert, oriented x 4, able to make her needs known. ambulates. IV site is clean, patent and intact. No c/o n/v noted. no c/o pain/discomfort noted. Call light is within reach, bed is in the lowest position, locked and alarm is on, will continue to monitor for comfort and safety.
[2019-06-26 08:00] VITALS: BP 117/73
[2019-06-26] MEDS: Oseltamivir 75mg cap ORAL SCH ×2 (08:25→17:12)
--- NOTE | 2019-06-26 10:31 | Pulmonology Progress Note ---
Assessment/Plan Assessment/Plan IMPRESSION: 1. Acute influenza pneumonia/bronchitis. 2. Hypertension. 3. Diabetes. DISCUSSION: Continue fluids and Tamiflu Overall better I will follow CT chest confirms pneumonia Subjective Interval Events: None new; CT chest reviewed Constitutional: Reports: no symptoms HEENT: Repors: no symptoms Respiratory: Reports: no symptoms Cardiovascular: Reports: no symptoms Gastrointestinal/Abdominal: Reports: no symptoms Allergies: Coded Allergies: PENICILLIN G (Verified Allergy, Mild, RESPIRATORY DISTRESS, 09/16/09) Objective Last 24 Hour Vital Signs Date Time Temp Pulse Resp B/P (MAP) Pulse Ox O2 Delivery O2 Flow Rate FiO2 06/26/19 08:00 98.1 73 20 117/73 (88) 96 06/26/19 04:00 98.0 64 19 129/68 (88) 98 06/26/19 00:00 99.2 70 18 136/78 (97) 98 06/25/19 22:40 Room Air 06/25/19 22:25 99.0 06/25/19 20:00 100.3 86 18 137/82 (100) 98 06/25/19 16:00 99.0 81 20 138/79 (98) 98 06/25/19 12:00 99.1 82 20 130/79 (96) 98 Intake and Output 06/25/19 06/26/19 19:00 07:00 Intake Total 480 ml 75 ml Balance 480 ml 75 ml Intake Oral 480 ml IV Total 75 ml # Voids 4 General Appearance: no acute distress HEENT: normocephalic Respiratory/Chest: chest wall non-tender, lungs clear Cardiovascular: normal peripheral pulses Abdomen: normal bowel sounds Microbiology Date/Time Source Procedure Growth Status 06/24/19 00:50 Blood Blood Culture - Preliminary NO GROWTH AFTER 48 HOURS Resulted 06/24/19 00:40 Blood Blood Culture - Preliminary NO GROWTH AFTER 48 HOURS Resulted 06/24/19 00:50 Nasal Nares - Final Complete 06/24/19 00:50 Nasal Nares - Final Complete Current Medications Medications (Trade) Dose Ordered Sig/Darcie Route PRN Reason Start Time Stop Time Status Last Admin Dose Admin Acetaminophen (Tylenol) 650 mg Q6H PRN ORAL Mild Pain/Temp > 100.5 06/25/19 21:15 07/25/19 21:14 06/25/19 21:51 Levofloxacin (Levaquin) 750 mg Q24H ORAL 1/29/20 17:00 07/01/19 16:59 06/25/19 17:17 Ondansetron HCl (Zofran) 4 mg Q6H PRN IVP Nausea & Vomiting 06/25/19 20:00 07/25/19 19:59 06/25/19 20:14 Oseltamivir Phosphate (Tamiflu) 75 mg TWICE A DAY ORAL 06/24/19 18:00 06/29/19 17:59 06/26/19 08:25 Sodium Chloride 1,000 ml @ 75 mls/hr [id number] IV 06/24/19 09:45 07/24/19 09:44 06/26/19 04:12 Olivier Lindsay MD Jun 26, 2019 10:31
--- NOTE | 2019-06-26 10:53 | Infectious Diseases Prog Note ---
Assessment/Plan Assessment/Plan IMPRESSION: Sepsis with fever and tachycardia and borderline leukocytosis. Influenza A with multifocal pneumonia DM hypertension. lactic acidosis, resolved Fatty liver RECOMMENDATION: Continue Tamiflu & Levaquin x 2 days Subjective ROS Limited/Unobtainable: Yes Constitutional: Reports: fever, other - low grade last night Respiratory: Reports: dry cough Cardiovascular: Reports: no symptoms Gastrointestinal/Abdominal: Reports: no symptoms Genitourinary: Reports: no symptoms Allergies: Coded Allergies: PENICILLIN G (Verified Allergy, Mild, RESPIRATORY DISTRESS, 09/16/09) Objective Vital Signs Last 24 Hour Vital Signs Date Time Temp Pulse Resp B/P (MAP) Pulse Ox O2 Delivery O2 Flow Rate FiO2 06/26/19 08:00 98.1 73 20 117/73 (88) 96 06/26/19 04:00 98.0 64 19 129/68 (88) 98 06/26/19 00:00 99.2 70 18 136/78 (97) 98 06/25/19 22:40 Room Air 06/25/19 22:25 99.0 06/25/19 20:00 100.3 86 18 137/82 (100) 98 06/25/19 16:00 99.0 81 20 138/79 (98) 98 06/25/19 12:00 99.1 82 20 130/79 (96) 98 Height (Feet): 5 Height (Inches): 3.00 Weight (Pounds): 175 General Appearance: no acute distress HEENT: mucous membranes moist Respiratory/Chest: lungs clear Cardiovascular: normal rate Abdomen: soft, non tender Extremities: no edema Neurologic/Psychiatric: alert, oriented x 3, responsive Microbiology Date/Time Source Procedure Growth Status 06/24/19 00:50 Blood Blood Culture - Preliminary NO GROWTH AFTER 48 HOURS Resulted 06/24/19 00:40 Blood Blood Culture - Preliminary NO GROWTH AFTER 48 HOURS Resulted 06/24/19 00:50 Nasal Nares - Final Complete 06/24/19 00:50 Nasal Nares - Final Complete Current Medications Medications (Trade) Dose Ordered Sig/Darcie Route PRN Reason Start Time Stop Time Status Last Admin Dose Admin Acetaminophen (Tylenol) 650 mg Q6H PRN ORAL Mild Pain/Temp > 100.5 06/25/19 21:15 07/25/19 21:14 06/25/19 21:51 Levofloxacin (Levaquin) 750 mg Q24H ORAL 06/24/19 17:00 07/01/19 16:59 06/25/19 17:17 Ondansetron HCl (Zofran) 4 mg Q6H PRN IVP Nausea & Vomiting 06/25/19 20:00 07/25/19 19:59 06/25/19 20:14 Oseltamivir Phosphate (Tamiflu) 75 mg TWICE A DAY ORAL 06/24/19 18:00 06/29/19 17:59 06/26/19 08:25 Sodium Chloride 1,000 ml @ 75 mls/hr [id number] IV 06/24/19 09:45 07/24/19 09:44 06/26/19 04:12 Kerwin Pimentel MD Jun 26, 2019 10:53
[2019-06-26 11:49] VITALS: BP 136/77
--- NOTE | 2019-06-26 15:05 | NUR ---
CASE MANAGEMENT:REVIEW SI;INFLUENZA. ELEVATED LACTIC ACID. CHEST PAIN. 99.2 73 20 136/78 98% ON RA IS;TAMIFLU PO BID LEVAQUIN PO QD IVF NS @ 75 ML/HR MED SURG STATUS DCP;FROM HOME
[2019-06-26 16:00] VITALS: BP 123/73
--- NOTE | 2019-06-26 16:02 | General Progress Note ---
Assessment/Plan Status: progressing Assessment/Plan: Assessment - abnormal LFT - likely fatty liver, per ultrasound - Influenza Recommendations - follow LFT - antivirals - f/u hepatitis serologies Subjective Allergies: Coded Allergies: PENICILLIN G (Verified Allergy, Mild, RESPIRATORY DISTRESS, 09/16/09) Subjective Feels better breathing better d/w patient re labs Objective Last 24 Hour Vital Signs Date Time Temp Pulse Resp B/P (MAP) Pulse Ox O2 Delivery O2 Flow Rate FiO2 06/26/19 11:49 99.1 68 20 136/77 (96) 97 06/26/19 09:00 Room Air 06/26/19 08:00 98.1 73 20 117/73 (88) 96 06/26/19 04:00 98.0 64 19 129/68 (88) 98 06/26/19 00:00 99.2 70 18 136/78 (97) 98 06/25/19 22:40 Room Air 06/25/19 22:25 99.0 06/25/19 20:00 100.3 86 18 137/82 (100) 98 Intake and Output 06/25/19 06/26/19 19:00 07:00 Intake Total 480 ml 75 ml Balance 480 ml 75 ml Intake Oral 480 ml IV Total 75 ml # Voids 4 Height (Feet): 5 Height (Inches): 3.00 Weight (Pounds): 175 Objective WDWN NCAT supple CTA RR abd soft ND NT no edema Theresa Velez MD Jun 26, 2019 16:02
[2019-06-26] MEDS: Levofloxacin 750mg tab ORAL SCH (17:12)
--- NOTE | 2019-06-26 19:05 | NUR ---
HAND-OFF: Report given to Roly.
--- NOTE | 2019-06-26 19:43 | NUR ---
NURSE NOTES: Patient is in bed, awake and alert x4. No signs of distress. Bed locked and in lowest position. Call light in reach. Will continue to monitor.
[2019-06-26 19:49] VITALS: BP 131/85
--- NOTE | 2019-06-26 21:52 | General Progress Note ---
Assessment/Plan Problem List: (1) Influenza ICD Codes: J11.1 - Influenza due to unidentified influenza virus with other respiratory manifestations SNOMED: 7557857 (2) Elevated lactic acid level ICD Codes: R79.89 - Other specified abnormal findings of blood chemistry SNOMED: 8134827 (3) Lumbar pain ICD Codes: M54.5 - Low back pain SNOMED: 143524053 (4) Chest pain with high risk of acute coronary syndrome Status: progressing Assessment/Plan: afebrile abx per id reviewed chart and labs influenza pna Subjective ROS Limited/Unobtainable: Yes Allergies: Coded Allergies: PENICILLIN G (Verified Allergy, Mild, RESPIRATORY DISTRESS, 09/16/09) Objective Last 24 Hour Vital Signs Date Time Temp Pulse Resp B/P (MAP) Pulse Ox O2 Delivery O2 Flow Rate FiO2 06/26/19 20:10 Room Air 06/26/19 19:49 100.4 78 14 131/85 (100) 96 06/26/19 16:00 99.0 77 20 123/73 (90) 95 06/26/19 11:49 99.1 68 20 136/77 (96) 97 06/26/19 09:00 Room Air 06/26/19 08:00 98.1 73 20 117/73 (88) 96 06/26/19 04:00 98.0 64 19 129/68 (88) 98 06/26/19 00:00 99.2 70 18 136/78 (97) 98 06/25/19 22:40 Room Air 06/25/19 22:25 99.0 Intake and Output 06/25/19 06/26/19 19:00 07:00 Intake Total 480 ml 75 ml Balance 480 ml 75 ml Intake Oral 480 ml IV Total 75 ml # Voids 4 Height (Feet): 5 Height (Inches): 3.00 Weight (Pounds): 175 Cardiovascular: normal rate Respiratory/Chest: lungs clear Abdomen: soft Adams Morales MD Jun 26, 2019 21:52
--- NOTE | 2019-06-26 23:45 | NUR ---
HAND-OFF: Report given to DAVID Hanson.
[2019-06-27] VITALS: BP 112/71
[2019-06-27 04:00] VITALS: BP 127/70
--- NOTE | 2019-06-27 07:10 | NUR ---
HAND-OFF: Report given to DAVID Grijalva. Addendum: 06/27/19 at 0711 by Ana Marley RN Disregard above documentation.
--- NOTE | 2019-06-27 07:11 | NUR ---
NURSE NOTES: Received patient in bed, awake alert, oriented x 4, able to make her needs known. ambulates. IV site is clean, patent and intact. IVF infusing well. No c/o n/v noted. no c/o pain/discomfort noted. Call light is within reach, bed is in the lowest position, locked and alarm is on, will continue to monitor for comfort and safety.
--- NOTE | 2019-06-27 07:11 | NUR ---
HAND-OFF: Report given to JANEEN Grijalva
[2019-06-27 08:00] VITALS: BP 127/84
[2019-06-27] MEDS: Oseltamivir 75mg cap ORAL SCH (08:09)
[2019-06-27] MEDS ORDERED: LEVAQUIN750 MG ORAL (09:03)
[2019-06-27] MEDS ORDERED: TAMIFLU75 MG ORAL (09:03)
--- NOTE | 2019-06-27 09:57 | Pulmonology Progress Note ---
Assessment/Plan Assessment/Plan IMPRESSION: 1. Acute influenza pneumonia/bronchitis. 2. Hypertension. 3. Diabetes. DISCUSSION: Continue fluids and Tamiflu Overall better I will follow CT chest confirms pneumonia OK to dc Subjective Interval Events: None new Constitutional: Reports: no symptoms HEENT: Repors: no symptoms Respiratory: Reports: no symptoms Cardiovascular: Reports: no symptoms Allergies: Coded Allergies: PENICILLIN G (Verified Allergy, Mild, RESPIRATORY DISTRESS, 09/16/09) Objective Last 24 Hour Vital Signs Date Time Temp Pulse Resp B/P (MAP) Pulse Ox O2 Delivery O2 Flow Rate FiO2 06/27/19 09:00 Room Air 06/27/19 08:00 98.2 78 20 127/84 (98) 96 06/27/19 04:00 98.4 70 14 127/70 (89) 98 06/27/19 00:00 98.8 72 14 112/71 (85) 96 06/26/19 22:20 99.4 06/26/19 20:10 Room Air 06/26/19 19:49 100.4 78 14 131/85 (100) 96 06/26/19 16:00 99.0 77 20 123/73 (90) 95 06/26/19 11:49 99.1 68 20 136/77 (96) 97 Intake and Output 06/26/19 06/27/19 19:00 07:00 Intake Total 1785 ml 450 ml Balance 1785 ml 450 ml Intake Oral 960 ml IV Total 825 ml 450 ml # Voids 2 1 General Appearance: no acute distress HEENT: normocephalic Respiratory/Chest: chest wall non-tender Cardiovascular: normal peripheral pulses Abdomen: normal bowel sounds Extremities: no cyanosis Current Medications Medications (Trade) Dose Ordered Sig/Darcie Route PRN Reason Start Time Stop Time Status Last Admin Dose Admin Acetaminophen (Tylenol) 650 mg Q6H PRN ORAL Mild Pain/Temp > 100.5 06/25/19 21:15 07/25/19 21:14 06/26/19 21:50 Levofloxacin (Levaquin) 750 mg Q24H ORAL 06/24/19 17:00 07/01/19 16:59 06/26/19 17:12 Ondansetron HCl (Zofran) 4 mg Q6H PRN IVP Nausea & Vomiting 06/25/19 20:00 07/25/19 19:59 06/25/19 20:14 Oseltamivir Phosphate (Tamiflu) 75 mg TWICE A DAY ORAL 06/24/19 18:00 06/29/19 17:59 06/27/19 08:09 Sodium Chloride 1,000 ml @ 75 mls/hr [id number] IV 06/24/19 09:45 07/24/19 09:44 06/27/19 01:07 Olivier Lindsay MD Jun 27, 2019 09:57
--- NOTE | 2019-06-27 10:33 | NUR ---
NURSE NOTES: discharge home with instructions. Rx given. IV heplock removed. no acute distress noted. afebrile. in stable condition. verified home address.
--- NOTE | 2019-06-29 08:58 | Discharge Summary ---
Discharge Summary Discharge Summary _ DATE OF ADMISSION: 06/24/2019 DATE OF DISCHARGE: 06 15 DISCHARGED BY: Dr. Morales REASON FOR ADMISSION: 59 years old female with past medical history of diabetes mellitus, hypertension , history of CVA, presented to emergency department for evaluation. Patient reported persistent cough, fevers,, chills and muscle aches. Patient was treated with a Z-Gustabo. Symptoms persisted for 8 days without improvement. She reported mild chest pain and pressure with coughing. Patient reported generalized weakness and poor appetite. Patient did not get a flu shot this year. Patient was afebrile in the ER , but shortly after transfer to the floor developed high fever 102.8 along with tachycardia. Pulse oximetry was stable on room air. Influenza test was positive for influenza A. Laboratory work-up revealed mild leukocytosis with WBC 11.1 , neutrophils 84.5% . Glucose 144. Lactic acid 2.6. AST 53, ALT 95. Troponin negative. Urinalysis revealed no evidence of urinary tract infection. Chest x-ray demonstrated irregular density right lung opacity , possibly calcified. Further evaluation with CT scan was recommended. Patient subsequently admitted for further management. CONSULTANTS: pulmonary Dr. Lindsay ID specialist Dr. Kerwin Pimentel GI specialist Dr. Velez [facility]: Patient admitted and started on Tamiflu and empiric antibiotic as per ID specialist recommendations. Blood cultures were negative. Mild leukocytosis resolved. Supplemental oxygen was on board as needed to keep pulse oximetry above 92%. Bronchodilator treatment provided as needed. Patient undergone CT scan of the chest , which revealed findings most likely representing multifocal pneumonia. Diffuse hepatic low-attenuation , consistent with a fatty change. Abdominal ultrasound demonstrated no evidence of gallstones or dilated bile ducts. Liver demonstrated diffusely increased echogenicity consistent with diffuse hepatocellular disease, most likely fatty changes. Hepatitis panel was negative. AST and ALT remained mildly elevated. Total bilirubin and lipase within normal limits. Abnormal LFT were most likely due to fatty liver as per ultrasound. Patient clinically stabilized and was ready for discharge home. Patient will need to complete the course of Tamiflu and antibiotic for additional 2 days at home. FINAL DIAGNOSES: Sepsis with fever, tachycardia ,mild leukocytosis and lactic acidosis Influenza A Multifocal pneumonia Diabetes mellitus Hypertension Abnormal LFT ,likely due to fatty liver DISCHARGE MEDICATIONS: See Medication Reconciliation list. DISCHARGE INSTRUCTIONS: Patient was discharged home. Follow-up with primary care provider in 1 week. I have been assigned to dictate discharge summary for this account. I was not involved in the patient's management. Winnie Galindo NP Jun 29, 2019 08:58
--- NOTE | 2019-06-29 09:22 | NUR ---
*-* INSURANCE *-* ALL CLINICALS AND REVIEWS AND DISCHARGE SUMMARY HAS BEEN FAXED TO: [facility] REF#[id number] CM: MAURICE COMER PH#[phone] EXT [id number] FAX# [phone] REVIEWS/CLINICALS
== END 2019-06-27 10:40 | disposition home or self-care (01) | DRG 871 ==
LOC: EMR 01:23 → INTOOBSV 02:20 → OBSVTOIN 02:20 → 4E 02:20 → EDBEDREQ 03:53
DX: A41.9 Sepsis, unspecified organism (principal); J10.00 Influenza due to other identified influenza virus with unspecified type of pneumonia; E87.2 Acidosis; E78.5 Hyperlipidemia, unspecified; Z88.0 Allergy status to penicillin; Z86.73 Personal history of transient ischemic attack (TIA), and cerebral infarction without residual deficits; E11.9 Type 2 diabetes mellitus without complications; K76.0 Fatty (change of) liver, not elsewhere classified; I10 Essential (primary) hypertension; J40 Bronchitis, not specified as acute or chronic
CPT/HCPCS: 36415; 71045; 71250; 76700; 80053; 81003; 82550; 82962; 83605; 83690; 83735; 83880; 84100; 84484; 85025; 85610; 85730; 86705; 86709; 86710; 86803; 87040; 87340; 93005; 96360; 99285; J2405; J7030

== ENCOUNTER 2020-05-04 13:33 | Emergency (ER) | payer MEDICAID, OTHER ==
[~2020-05-04] VITALS: Ht 160 cm; Wt 79.4 kg
[~2020-05-04 13:33] MED LIST changes: +LEVAQUIN750 MG ORAL; +METFORMIN HCL1000 M1 ORAL; +METFORMIN HCL500 M1 ORAL; +TAMIFLU75 MG ORAL
[2020-05-04 13:55] VITALS: BP 149/77
[2020-05-04] MEDS ORDERED: Acetaminophen 500mg (ES) tab ORAL ONE (14:15)
--- NOTE | 2020-05-04 14:15 | Emergency Room Report ---
History of Present Illness General Chief Complaint: Fever Source: Patient, Medical Record Present Illness HPI Patient is a 60-year-old female presents for increased fever and generalized weakness for 4 days. Patient had recently been started on azithromycin for increased cough. Had fever up to 102. Reports having diffuse body aches. History of type 1 diabetes. Reports having generalized weakness. Denies any diarrhea or vomiting. Reports having increased loose stools. Denies any abdominal pain. 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 Patient History Past Medical History: see triage record, DM Reviewed Nursing Documentation: PMH: Agreed; PSxH: Agreed Nursing Documentation-PMH Past Medical History: No History, Except For Hx Cardiac Problems: Yes Hx Hypertension: Yes Hx Diabetes: Yes Hx Cancer: No Hx Gastrointestinal Problems: Yes Hx Neurological Problems: Yes Hx Cerebrovascular Accident: Yes Review of Systems All Other Systems: negative except mentioned in HPI Physical Exam Vital Signs Date Time Temp Pulse Resp B/P (MAP) Pulse Ox O2 Delivery O2 Flow Rate FiO2 05/04/20 13:55 102.4 94 18 149/77 (101) 95 Room Air Sp02 EP Interpretation: reviewed, normal General Appearance: normal inspection, well appearing, no apparent distress, alert, GCS 15, obese Head: atraumatic ENT: normal ENT inspection, hearing grossly normal, normal voice Neck: normal inspection, full range of motion, supple, no bony tend Respiratory: normal inspection, lungs clear, normal breath sounds, no respiratory distress, no retraction, no wheezing Cardiovascular #1: regular rate, rhythm, no edema Gastrointestinal: normal inspection, normal bowel sounds, non tender, soft, no guarding, no hernia Genitourinary: no CVA tenderness Musculoskeletal: normal inspection, back normal, normal range of motion Neurologic: alert, motor strength/tone normal, upstairs maid III-XII nml as tested, oriented x3, responsive, speech normal, normal inspection Psychiatric: normal inspection, judgement/insight normal, mood/affect normal Medical Decision Making Diagnostic Impression: Primary Impression: Suspected 2019 novel coronavirus infection Additional Impression: Diabetes ER Course Patient presented for fever and cough. Differential diagnosis include was not limited to coronavirus infection, pneumonia, bronchitis, urinary tract infection among others. X-ray imaging and coronavirus testing were ordered. Chest x-ray showed faint right-sided infiltrate. Patient is currently taking azithromycin. Patient was noted to have rapid positive Covid testing. 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 She was noted to have normal oxygen saturation. Patient was advised continued oral hydration as well as use of Tylenol. She advised to return if worse. She was to monitor pulse ox at home. My coronavirus patient presented for cough. Differential diagnosis include was not limited to viral respiratory infection, upper respiratory infection, bronchitis, pneumonia among others. Patient has a benign exam and does not appear to require any imaging or laboratory testing at this time. Patient does not currently meet inpatient coronavirus hospitalization guidelines. Does not appear to be in any respiratory distress. Patient was noted to have symptoms consistent with a viral respiratory infection. Patient was advised to self quarantine. Was advised to return if began having increased difficulty breathing or other concerns. The patient is advised to follow up with primary care doctor for recheck. Patient is advised to return if any worsening condition or if any changes in status that are concerning. EKG Diagnostic Results Rate: normal Rhythm: NSR ST Segments: no acute changes Last Vital Signs Date Time Temp Pulse Resp B/P (MAP) Pulse Ox O2 Delivery O2 Flow Rate FiO2 05/04/20 13:55 102.4 94 18 149/77 (101) 95 Room Air Status: improved Disposition: HOME, SELF-CARE Condition: Stable Arias Velasco MD May 04, 2020 14:15
[2020-05-04 14:46] LABS: APPEARANCE,URINE CLEAR; BILIRUBIN, URINE NEGATIVE (NEGATIVE); COLOR,URINE PALE YELLOW; GLUCOSE, URINE (UA) NEGATIVE (NEGATIVE); KETONES,URINE NEGATIVE (NEGATIVE); LEUKOCYTE ESTERASE ,URINE NEGATIVE (NEGATIVE); NITRITE,URINE NEGATIVE (NEGATIVE); PH,URINE 5 (4.5-8.0); PROTEIN,URINE NEGATIVE (NEGATIVE); UROBILINOGEN,URINE NORMAL MG/DL (0.0-1.0)
--- NOTE | 2020-05-04 14:47 | NUR ---
ED Nurse Note: PT. AAOX4. AMBULATORY. PT. WALKED IN TO ER FROM HOME. PER PT. SHE HAS BEEN FEELING WEAK AND REPORTED HAVING EPISODES OF SOB X 5 DAYS. DENIES CP c/o feeling weak, tired, SOB and fever x 5 days; reports no cp
[2020-05-04] MEDS ORDERED: dexAMETHasone 10mg/ml Inj IV ONE (15:15)
--- NOTE | 2020-05-04 15:33 | Diagnostic Imaging Report ---
Indication: Reason For Exam: SOB Technique: Single AP view of the chest. Comparison: Chest radiograph Dated 06/24/[address] dated 06/25/2019 Findings: Cardiomediastinal silhouette is unchanged in appearance. Interval resolution of previously described nodular opacities. There is a patchy right midlung airspace opacity. No pneumothorax or pleural effusion. No acute osseous abnormality. IMPRESSION: Patchy right midlung airspace opacity which could represent atelectasis or pneumonia.
--- NOTE | 2020-05-04 15:45 | NUR ---
ED Nurse Note: Received patient from tent. Pt has no acute distress. Set up on monitor. Blood labs drawn and IV established. Pt is alert and orientedx4, ambulatory. EKG taken.
--- NOTE | 2020-05-04 15:51 | NUR ---
ED Nurse Note: Moved patient to trauma.
[2020-05-04 16:14] VITALS: BP 14/72
[2020-05-04 16:29] LABS: BASOPHILS % (AUTO) 1.4 % (0.0-2.0); EOSINOPHILS % (AUTO) 0.7 % (0.0-3.0); HEMATOCRIT 38.9 % (37.0-47.0); HEMOGLOBIN 13.4 G/DL (12.0-16.0); LYMPHOCYTES % (AUTO) 25.1 % (20.0-45.0); MEAN CORPUSCULAR VOLUME 84 FL (80-99); MONOCYTES % (AUTO) 8.1 % (1.0-10.0); NEUTROPHILS % (AUTO) 64.7 % (45.0-75.0); PLATELET COUNT 235 K/UL (150-450); RED BLOOD COUNT 4.61 M/UL (4.20-5.40); RED CELL DISTRIBUTION WIDTH 13.3 % (11.6-14.8); WHITE BLOOD COUNT 6.3 K/UL (4.8-10.8)
[2020-05-04 16:43] LABS: ANION GAP 9 mmol/L (5-15); BLOOD UREA NITROGEN 10 mg/dL (7-18); CALCIUM 8.6 MG/DL (8.5-10.1); CARBON DIOXIDE 27 MMOL/L (21-32); CHLORIDE 101 MMOL/L (98-107); CREATININE 0.6 MG/DL (0.55-1.30); POTASSIUM 4.5 MMOL/L (3.5-5.1); SODIUM 137 MMOL/L (136-145)
[2020-05-04 16:51] LABS: INR 0.9 (0.9-1.1)
[2020-05-04 17:05] LABS: ALANINE AMINOTRANSFERASE 65 U/L (12-78); ALBUMIN/GLOBULIN RATIO 1.1 (1.0-2.7); ALKALINE PHOSPHATASE 59 U/L (46-116); ASPARTATE AMINO TRANSFERASE 46 U/L (15-37); BILIRUBIN,TOTAL 0.1 MG/DL (0.2-1.0); CKMB < 0.5 NG/ML (0.0-3.6); CREATINE KINASE 135 U/L (26-308); FERRITIN 206 NG/ML (8-388); LACTATE DEHYDROGENASE 245 U/L (81-234); PHOSPHORUS 4.7 MG/DL (2.5-4.9)
[2020-05-04 17:20] VITALS: BP 123/70
--- NOTE | 2020-05-04 17:20 | NUR ---
ER DISCHARGE NOTE: Patient is cleared to be discharged per ERMD, pt is aox4, on room air, with stable vital signs. pt was given dc instructions, pt was able to verbalize understanding, pt id band and iv site removed without complications. pt is able to ambulate with steady gait. pt took all belongings. Pt educated regarding COVID virus and verbalized understanding.
== END 2020-05-04 17:20 | disposition home or self-care (01) ==
LOC: EMR 15:09 → EDBEDREQ 15:15 → 4E 15:45 → UNDOADMIN 15:45 → EDBEDREQ 16:34
DX: U07.1 COVID-19 (principal); E10.9 Type 1 diabetes mellitus without complications; I11.9 Hypertensive heart disease without heart failure; Z86.73 Personal history of transient ischemic attack (TIA), and cerebral infarction without residual deficits; Z88.0 Allergy status to penicillin
CPT/HCPCS: 36415; 71045; 80053; 81003; 82550; 82553; 82728; 83605; 83615; 83690; 83735; 83880; 84100; 84484; 85025; 85379; 85610; 85730; 86140; 87040; 93005; 96361; 96374; 99284; J7030; U0002

== ENCOUNTER 2020-05-08 22:35 | Inpatient (IN) | payer OTHER ==
[~2020-05-08] VITALS: Ht 160 cm; Wt 79.4 kg
[2020-05-08 23:10] VITALS: BP 133/85
[2020-05-08 23:47] LABS: BASOPHILS % (AUTO) 1.5 % (0.0-2.0); EOSINOPHILS % (AUTO) 0.2 % (0.0-3.0); HEMOGLOBIN 13.5 G/DL (12.0-16.0); LYMPHOCYTES % (AUTO) 26.7 % (20.0-45.0); MEAN CORPUSCULAR VOLUME 81 FL (80-99); MONOCYTES % (AUTO) 7.9 % (1.0-10.0); NEUTROPHILS % (AUTO) 63.7 % (45.0-75.0); PLATELET COUNT 270 K/UL (150-450); RED BLOOD COUNT 4.54 M/UL (4.20-5.40)
--- NOTE | 2020-05-08 23:50 | Emergency Room Report ---
History of Present Illness General Chief Complaint: Dyspnea/Respdistress Source: Patient Present Illness HPI 60-year-old female presents for evaluation. Stating that she tested positive for Covid. Was seen here on 05/04. States she is been feeling short of breath since. Checked her O2 sat today and states it was low. Denies fevers or chills. States she feels weak. Denies chest pain. No other aggravating relieving factors. Denies any other associated symptoms Allergies: Coded Allergies: PENICILLIN G (Verified Allergy, Mild, RESPIRATORY DISTRESS, 09/16/09) COVID-19 Screening Contact w/high risk pt: Yes Experienced COVID-19 symptoms?: Yes COVID-19 Testing performed CLINICAL ADVISOR: Yes COVID-19 Screening: Positive COVID-19 COVID-19 Testing Source: 05/04/20 Patient History Past Medical History: DM, HTN, CVA/TIA Past Surgical History: none Pertinent Family History: none Social History: Denies: smoking, alcohol use, drug use Now: No Immunizations: UTD Reviewed Nursing Documentation: PMH: Agreed; PSxH: Agreed Nursing Documentation-PMH Past Medical History: No History, Except For Hx Cardiac Problems: Yes Hx Hypertension: Yes Hx Diabetes: Yes Hx Cancer: No Hx Gastrointestinal Problems: Yes Hx Neurological Problems: Yes Hx Cerebrovascular Accident: Yes Review of Systems All Other Systems: negative except mentioned in HPI Physical Exam Vital Signs Date Time Temp Pulse Resp B/P (MAP) Pulse Ox O2 Delivery O2 Flow Rate FiO2 05/08/20 22:50 97.5 87 16 125/79 (94) 94 Room Air Sp02 EP Interpretation: reviewed, normal General Appearance: no apparent distress, alert, GCS 15, non-toxic Head: normocephalic, atraumatic Eyes: bilateral eye normal inspection, bilateral eye PERRL ENT: hearing grossly normal, normal pharynx, no angioedema, normal voice Neck: full range of motion, supple/symm/no masses Respiratory: chest non-tender, lungs clear, normal breath sounds, speaking full sentences Cardiovascular #1: regular rate, rhythm, no edema Cardiovascular #2: 2+ carotid (R), 2+ carotid (L), 2+ radial (R), 2+ radial (L), 2+ dorsalis pedis (R), 2+ dorsalis pedis (L) Gastrointestinal: normal bowel sounds, non tender, soft, non-distended, no guarding, no rebound Rectal: deferred Genitourinary: normal inspection, no CVA tenderness Musculoskeletal: back normal, normal range of motion, gait/station normal, non- tender Neurologic: alert, motor strength/tone normal, oriented x3, sensory intact, responsive, speech normal Psychiatric: judgement/insight normal, memory normal, mood/affect normal, no suicidal/homicidal ideation Reflexes: 3+ bicep (R), 3+ bicep (L), 3+ tricep (R), 3+ tricep (L), 3+ knee (R), 3+ knee (L) Lymphatic: no adenopathy Medical Decision Making Diagnostic Impression: Primary Impression: COVID-19 Additional Impression: Pneumonia Qualified Codes: J18.9 - Pneumonia, unspecified organism ER Course Hospital Course 60-year-old female presents with shortness of breath. Recent diagnosis of Covid Differential diagnoses include: Pneumonia, CHF exacerbation, pneumothorax, fluid overload Clinical course Patient placed on stretcher. In isolation. I wore full PPE. On radiographer cardiac catheterization with stable vitals. After initial history and physical, I ordered nebulizer treatments. I ordered labs, IV fluids, EKG, chest x-ray, blood cultures, Labs -no leukocytosis, hemoglobin/hematocrit stable, electrolytes okay, lactate 2.6, troponins negative, d-dimer elevated, inflammatory markers elevated CXR - interval worsening of pneumonia on right side EKG - NSR no acute ischemic changes interpreted by me Patient not requiring supplemental oxygen at this time. Given dexamethasone. Given Lovenox. Given antibiotics Case discussed with Dr. Ríos and he agreed to the patient to his service for further care and support I feel this is a highly complex case requiring extensive working including EKG/Rhythm strip, Xray/CT/US, Blood/urine lab work, repeat exams while in ED, and administration of strong opiates/narcotics for pain control, admission to hospital or close patient follow up. Diagnosis - pneumonia, COVID19 Patient admitted to floor in serious condition Laboratory Tests Test 05/08/20 23:19 05/09/20 00:27 05/09/20 02:13 White Blood Count 7.0 K/UL (4.8-10.8) Red Blood Count 4.54 M/UL (4.20-5.40) Hemoglobin 13.5 G/DL (12.0-16.0) Hematocrit 37.0 % (37.0-47.0) Mean Corpuscular Volume 81 FL (80-99) Mean Corpuscular Hemoglobin 29.6 PG (27.0-31.0) Mean Corpuscular Hemoglobin Concent 36.5 G/DL (32.0-36.0) H Red Cell Distribution Width 14.0 % (11.6-14.8) Platelet Count 270 K/UL (150-450) Mean Platelet Volume 6.8 FL (6.5-10.1) Neutrophils (%) (Auto) 63.7 % (45.0-75.0) Lymphocytes (%) (Auto) 26.7 % (20.0-45.0) Monocytes (%) (Auto) 7.9 % (1.0-10.0) Eosinophils (%) (Auto) 0.2 % (0.0-3.0) Basophils (%) (Auto) 1.5 % (0.0-2.0) Sodium Level 138 MMOL/L (136-145) Potassium Level 4.0 MMOL/L (3.5-5.1) Chloride Level 102 MMOL/L (98-107) Carbon Dioxide Level 27 MMOL/L (21-32) Anion Gap 9 mmol/L (5-15) Blood Urea Nitrogen 11 mg/dL (7-18) Creatinine 0.9 MG/DL (0.55-1.30) Estimat Glomerular Filtration Rate > 60 mL/min (>60) Glucose Level 157 MG/DL (74-106) H Calcium Level 8.6 MG/DL (8.5-10.1) Total Bilirubin 0.2 MG/DL (0.2-1.0) Aspartate Amino Transf (AST/SGOT) 34 U/L (15-37) Alanine Aminotransferase (ALT/SGPT) 39 U/L (12-78) Alkaline Phosphatase 58 U/L (46-116) Troponin I 0.003 ng/mL (0.000-0.056) Pro-B-Type Natriuretic Peptide Pending Total Protein 7.4 G/DL (6.4-8.2) Albumin 3.2 G/DL (3.4-5.0) L Globulin 4.2 g/dL Albumin/Globulin Ratio 0.8 (1.0-2.7) L Prothrombin Time 10.0 SEC (9.30-11.50) Prothromb Time International Ratio 0.9 (0.9-1.1) Activated Partial Thromboplast Time 28 SEC (23-33) D-Dimer 1.77 mg/L FEU (0.00-0.49) H Lactic Acid Level 2.60 mmol/L (0.4-2.0) H Pending Ferritin 344 NG/ML (8-388) Lactate Dehydrogenase 483 U/L (81-234) H C-Reactive Protein, Quantitative 4.6 mg/dL (0.00-0.90) H Chest X-Ray Diagnostic Results Chest X-Ray Diagnostic Results : Chest X-Ray Ordered: Yes # of Views/Limited/Complete: 1 View Indication: Shortness of Breath EP Interpretation: Yes Interpretation: no pneumothorax, other - R sided infiltrate Impression: Other - COVID PNA Electronically Signed by: Electronically signed by Aleksandr Garrido MD Last Vital Signs Date Time Temp Pulse Resp B/P (MAP) Pulse Ox O2 Delivery O2 Flow Rate FiO2 05/08/20 23:10 97.5 83 22 133/85 97 Room Air Status: improved Disposition: ADMITTED INPATIENT Condition: Serious Referrals: NOT CHOSEN IPA/,REFERRING (PCP) Aleksandr Garrido MD May 08, 2020 23:50
[2020-05-09] LABS: ANION GAP 9 mmol/L (5-15); BLOOD UREA NITROGEN 11 mg/dL (7-18); CALCIUM 8.6 MG/DL (8.5-10.1); CARBON DIOXIDE 27 MMOL/L (21-32); CHLORIDE 102 MMOL/L (98-107); CREATININE 0.9 MG/DL (0.55-1.30); SODIUM 138 MMOL/L (136-145)
[2020-05-09 00:05] LABS: ALANINE AMINOTRANSFERASE 39 U/L (12-78); ALBUMIN 3.2 G/DL (3.4-5.0); ALBUMIN/GLOBULIN RATIO 0.8 (1.0-2.7); ALKALINE PHOSPHATASE 58 U/L (46-116); ASPARTATE AMINO TRANSFERASE 34 U/L (15-37); BILIRUBIN,TOTAL 0.2 MG/DL (0.2-1.0)
--- NOTE | 2020-05-09 00:07 | Diagnostic Imaging Report ---
EXAM: XR Chest, 1 View CLINICAL HISTORY: SOB TECHNIQUE: Frontal view of the chest. COMPARISON: Chest x-ray 05/04/2020 FINDINGS: Lungs: Airspace opacities over the right midlung and at the lung bases suspicious for pneumonia in the appropriate clinical setting. Pleural space: No pleural effusion. No pneumothorax. Heart: Unremarkable. No cardiomegaly. Bones/joints: Unremarkable. IMPRESSION: Airspace opacities over the right midlung and at the lung bases suspicious for pneumonia in the appropriate clinical setting.
[2020-05-09 01:30] VITALS: BP 156/96
[2020-05-09 02:11] LABS: INR 0.9 (0.9-1.1)
[2020-05-09] MEDS ORDERED: AMLODIPINE BESY10 MG ORAL (02:26)
[2020-05-09] MEDS ORDERED: dexAMETHasone 10mg/ml Inj IV ONE (02:30)
[2020-05-09] MEDS ORDERED: Enoxaparin 40mg Inj SUBQ ONE (02:30)
[2020-05-09] MEDS ORDERED: Albuterol/Ipratropium 3ml neb HHN PRN (03:45)
[2020-05-09] MEDS ORDERED: Milk of Magnesia 30ml Ud ORAL PRN (03:45)
[2020-05-09 04:00] VITALS: BP 145/84
--- NOTE | 2020-05-09 04:15 | History and Physical ---
History of Present Illness General Reason for Hospitalization: Dyspnea/Respdistress Present Illness HPI A 60YO F who has a past medical history for DM2, HTN and reports back to the ED after initially been seen on 05/04 for progressing symptoms of dyspnea. She initially seen in the ED on 05/04 and confirmed for COVID19 PNA. She was discharged from the ED due to stable vitals. She reports back due to episodic hypoxia noted on her pulse ox at home. She reports with saturations in the low 80's. In the ED, she is hers saturation on RM is 94-98%. However her CXR has slightly worsened airspace disease as well as her inflammatory markers. She received lovenox 40mg SQ, Levaquin 750mg IV and decardron 10mg IV in the ED. Allergies: Coded Allergies: PENICILLIN G (Verified Allergy, Mild, RESPIRATORY DISTRESS, 09/16/09) COVID-19 Screening Contact w/high risk pt: Yes Experienced COVID-19 symptoms?: Yes Coronavirus symptoms experienc: Shortness of Breath Medication History Scheduled Amlodipine Besylate* (Amlodipine Besylate*), 10 MG ORAL DAILY, (Reported) Aspirin* (Aspirin*), 81 MG ORAL DAILY, (Reported) Metformin Hcl* (Metformin Hcl*), 1,000 MG ORAL DAILY, (Reported) Metformin Hcl* (Metformin Hcl*), 500 MG ORAL BEFORE DINNER, (Reported) Discontinued Medications Amlodipine Besylate* (Amlodipine Besylate*), Unknown Dose ORAL DAILY, (Reported) Discontinued Reason: Pt stopped taking med Atorvastatin Calcium* (Atorvastatin Calcium*), Unknown Dose ORAL BEDTIME, (Reported) Discontinued Reason: Pt stopped taking med Levofloxacin* (Levaquin*), 750 MG ORAL DAILY, (Reported) Discontinued Reason: Pt stopped taking med Oseltamivir Phosphate (Tamiflu), 75 MG ORAL TWICE A DAY, (Reported) Discontinued Reason: Pt stopped taking med Patient History Healthcare decision maker Resuscitation status Advanced Directive on File Review of Systems Respiratory: Reports: cough, shortness of breath Physical Exam General Appearance: alert, mild distress Lines, tubes and drains: peripheral HEENT: normocephalic Neck: non-tender Respiratory/Chest: lungs clear Cardiovascular/Chest: normal rate, regular rhythm Abdomen: normal bowel sounds, non tender, soft Extremities: normal range of motion, non-tender Neurologic: fluid dynamicist II-XII grossly normal Last 24 Hour Vital Signs Date Time Temp Pulse Resp B/P (MAP) Pulse Ox O2 Delivery O2 Flow Rate FiO2 05/09/20 03:10 98.6 86 20 128/57 96 Room Air 05/09/20 01:30 97.5 88 22 156/96 95 Room Air 05/08/20 23:10 97.5 83 22 133/85 97 Room Air 05/08/20 23:10 87 16 Room Air 05/08/20 22:50 97.5 87 16 125/79 (94) 94 Room Air Intake and Output 05/08/20 05/09/20 19:00 07:00 Intake Total 0 ml Balance 0 ml Intake Oral 0 ml # Voids 2 Laboratory Tests Test 05/08/20 23:19 05/09/20 00:27 05/09/20 02:13 White Blood Count 7.0 K/UL (4.8-10.8) Red Blood Count 4.54 M/UL (4.20-5.40) Hemoglobin 13.5 G/DL (12.0-16.0) Hematocrit 37.0 % (37.0-47.0) Mean Corpuscular Volume 81 FL (80-99) Mean Corpuscular Hemoglobin 29.6 PG (27.0-31.0) Mean Corpuscular Hemoglobin Concent 36.5 G/DL (32.0-36.0) H Red Cell Distribution Width 14.0 % (11.6-14.8) Platelet Count 270 K/UL (150-450) Mean Platelet Volume 6.8 FL (6.5-10.1) Neutrophils (%) (Auto) 63.7 % (45.0-75.0) Lymphocytes (%) (Auto) 26.7 % (20.0-45.0) Monocytes (%) (Auto) 7.9 % (1.0-10.0) Eosinophils (%) (Auto) 0.2 % (0.0-3.0) Basophils (%) (Auto) 1.5 % (0.0-2.0) Sodium Level 138 MMOL/L (136-145) Potassium Level 4.0 MMOL/L (3.5-5.1) Chloride Level 102 MMOL/L (98-107) Carbon Dioxide Level 27 MMOL/L (21-32) Anion Gap 9 mmol/L (5-15) Blood Urea Nitrogen 11 mg/dL (7-18) Creatinine 0.9 MG/DL (0.55-1.30) Estimat Glomerular Filtration Rate > 60 mL/min (>60) Glucose Level 157 MG/DL (74-106) H Calcium Level 8.6 MG/DL (8.5-10.1) Total Bilirubin 0.2 MG/DL (0.2-1.0) Aspartate Amino Transf (AST/SGOT) 34 U/L (15-37) Alanine Aminotransferase (ALT/SGPT) 39 U/L (12-78) Alkaline Phosphatase 58 U/L (46-116) Troponin I 0.003 ng/mL (0.000-0.056) Pro-B-Type Natriuretic Peptide Pending Total Protein 7.4 G/DL (6.4-8.2) Albumin 3.2 G/DL (3.4-5.0) L Globulin 4.2 g/dL Albumin/Globulin Ratio 0.8 (1.0-2.7) L Prothrombin Time 10.0 SEC (9.30-11.50) Prothromb Time International Ratio 0.9 (0.9-1.1) Activated Partial Thromboplast Time 28 SEC (23-33) D-Dimer 1.77 mg/L FEU (0.00-0.49) H Lactic Acid Level 2.60 mmol/L (0.4-2.0) H 1.50 mmol/L (0.66-2.22) Ferritin 344 NG/ML (8-388) Lactate Dehydrogenase 483 U/L (81-234) H C-Reactive Protein, Quantitative 4.6 mg/dL (0.00-0.90) H Height (Feet): 5 Height (Inches): 3.00 Weight (Pounds): 175 Medications Current Medications Medications (Trade) Dose Ordered Sig/Darcie Route PRN Reason Start Time Stop Time Status Last Admin Dose Admin Acetaminophen (Tylenol) 650 mg Q4H PRN ORAL FEVER 05/09/20 03:45 06/08/20 03:44 Albuterol/ Ipratropium (Albuterol/ Ipratropium) 3 ml Q6H PRN HHN Shortness of Breath 05/09/20 03:45 05/14/20 03:44 Amlodipine Besylate (Norvasc) 10 mg DAILY ORAL 05/09/20 09:00 06/08/20 08:59 Dexamethasone Sodium Phosphate (Decadron 10mg/ ml Inj) 6 mg DAILY IV 05/10/20 09:00 08/08/20 08:59 Dextrose (Dextrose 50%) 25 ml Q30M PRN IV Hypoglycemia 05/09/20 04:00 08/07/20 03:59 Dextrose (Dextrose 50%) 50 ml Q30M PRN IV Hypoglycemia 05/09/20 04:00 08/07/20 03:59 Docusate Sodium (Colace) 100 mg EVERY 12 HOURS ORAL 05/09/20 09:00 06/08/20 08:59 Enoxaparin Sodium (Lovenox) 40 mg Q24H SUBQ 05/10/20 09:00 08/08/20 08:59 Insulin Aspart (NovoLOG) BEFORE MEALS AND HS SUBQ 05/09/20 06:30 08/07/20 06:29 Magnesium Hydroxide (Mom) 30 ml HSPRN PRN ORAL Constipation 05/09/20 03:45 06/08/20 03:44 Metformin HCl (Glucophage) 1,000 mg DAILY ORAL 05/09/20 09:00 06/08/20 08:59 Pantoprazole (Protonix) 40 mg ACBREAKFAST ORAL 05/09/20 06:30 06/08/20 06:29 Sodium Chloride 1,000 ml @ 200 mls/hr Q5H IV 05/09/20 00:30 06/08/20 00:29 05/09/20 00:43 Assessment/Plan Assessment/Plan: COVID19 PNA Sepsis Elevated inflammatory markers DMT2 HTN Plan - Admit to COVID19 floor - Apply supplemental oxygenation as needed - Start decadron 6mg IV for 10days - Hold on remdesivir unless respiratory status deconditions - Start ISS and okay to continue metformin with a normal serum creatinine - Continue levaquin 750mg IV daily for 5 days - Monitor inflammatory markers - Start back on home medication Norvasc 10mg daily If any further questions or concerns please call Discussed with bedside Gallo Phelps D.O. May 09, 2020 04:15
[2020-05-09] MEDS: NovoLOG Insulin Flexpen SUBQ SCH ×5 (06:30→20:24)
[2020-05-09 08:00] VITALS: BP 130/70
[2020-05-09] MEDS: Docusate 100mg cap ORAL SCH ×2 (08:56→20:24)
[2020-05-09] MEDS: metFORMIN 500mg tab ORAL SCH (08:56)
[2020-05-09] MEDS ORDERED: Azithromycin 500 MG in D5W 275 ML IV SCH (09:00)
[2020-05-09 12:00] VITALS: BP 122/74
[2020-05-09 16:00] VITALS: BP 139/84
[2020-05-09 20:00] VITALS: BP 138/78
[2020-05-10] VITALS (7 sets, daily range): BP systolic 101–136; BP diastolic 57–76
[2020-05-10] MEDS: guaiFENesin /DM 10ml syrup ORAL PRN ×2 (03:55→21:19)
[2020-05-10] MEDS: NovoLOG Insulin Flexpen SUBQ SCH ×4 (06:30→21:00)
[2020-05-10 07:01] LABS: HEMATOCRIT 36.5 % (37.0-47.0); HEMOGLOBIN 12.5 G/DL (12.0-16.0); MEAN CORPUSCULAR VOLUME 85 FL (80-99); PLATELET COUNT 299 K/UL (150-450); RED CELL DISTRIBUTION WIDTH 13.1 % (11.6-14.8)
[2020-05-10] MEDS: metFORMIN 500mg tab ORAL SCH (08:30)
[2020-05-10] MEDS: Docusate 100mg cap ORAL SCH ×2 (08:30→21:19)
[2020-05-10] MEDS: dexAMETHasone 10mg/ml Inj IV SCH (08:31)
[2020-05-10] MEDS: Enoxaparin 40mg Inj SUBQ SCH (08:32)
[2020-05-10] MEDS ORDERED: LOSARTAN POTASS50 MG ORAL (10:21)
[2020-05-10] MEDS ORDERED: VIBRAMYCIN100 MG ORAL (10:21)
[2020-05-10] MEDS ORDERED: IVERMECTIN3 MG PO (10:21)
[2020-05-10 11:48] LABS: ANION GAP 11 mmol/L (5-15); BLOOD UREA NITROGEN 10 mg/dL (7-18); CALCIUM 8.4 MG/DL (8.5-10.1); CARBON DIOXIDE 25 MMOL/L (21-32); CHLORIDE 104 MMOL/L (98-107); CREATININE 0.6 MG/DL (0.55-1.30); POTASSIUM 4.1 MMOL/L (3.5-5.1); SODIUM 140 MMOL/L (136-145)
--- NOTE | 2020-05-10 12:14 | Infectious Diseases Prog Note ---
Assessment/Plan Assessment/Plan Full consult dictated: A) 1) covid-19 with pna, ? cap 2) pmh noted 3) allergies - nkda 4) allergies - pcn P) 1) dexamethasone, levofloxacin 2) monitor for hypoxia - saturations stable on RA 3) consider Remdesivir if worsens - patient says has had symptoms for 2 weeks, ? benefit remdesivir 4) thank you Subjective Allergies: Coded Allergies: PENICILLIN G (Verified Allergy, Mild, RESPIRATORY DISTRESS, 09/16/09) Objective Last 24 Hour Vital Signs Date Time Temp Pulse Resp B/P (MAP) Pulse Ox O2 Delivery O2 Flow Rate FiO2 05/10/20 09:00 Room Air 05/10/20 08:32 80 101/63 05/10/20 08:00 97.7 76 135/74 (94) 95 05/10/20 04:00 98.9 80 101/63 (76) 91 05/10/20 01:25 98.8 74 122/76 (91) 91 05/10/20 00:00 99.0 78 19 127/69 (88) 97 05/09/20 22:03 Room Air 05/09/20 20:00 98.0 71 19 138/78 (98) 98 05/09/20 16:00 97.8 88 19 139/84 (102) 98 Height (Feet): 5 Height (Inches): 3.00 Weight (Pounds): 175 Microbiology Date/Time Source Procedure Growth Status 05/08/20 23:19 Blood Blood Culture - Preliminary NO GROWTH AFTER 24 HOURS Resulted 05/08/20 23:04 Blood Blood Culture - Preliminary NO GROWTH AFTER 24 HOURS Resulted Laboratory Tests Test 05/09/20 16:26 05/10/20 04:00 POC Whole Blood Glucose 160 MG/DL (74-106) H White Blood Count 11.0 K/UL (4.8-10.8) #H Red Blood Count 4.30 M/UL (4.20-5.40) Hemoglobin 12.5 G/DL (12.0-16.0) Hematocrit 36.5 % (37.0-47.0) L Mean Corpuscular Volume 85 FL (80-99) Mean Corpuscular Hemoglobin 29.0 PG (27.0-31.0) Mean Corpuscular Hemoglobin Concent 34.2 G/DL (32.0-36.0) Red Cell Distribution Width 13.1 % (11.6-14.8) Platelet Count 299 K/UL (150-450) Mean Platelet Volume 6.4 FL (6.5-10.1) L Neutrophils (%) (Auto) % (45.0-75.0) Lymphocytes (%) (Auto) % (20.0-45.0) Monocytes (%) (Auto) % (1.0-10.0) Eosinophils (%) (Auto) % (0.0-3.0) Basophils (%) (Auto) % (0.0-2.0) Differential Total Cells Counted 100 Neutrophils % (Manual) 75 % (45-75) Lymphocytes % (Manual) 16 % (20-45) L Monocytes % (Manual) 9 % (1-10) Eosinophils % (Manual) 0 % (0-3) Basophils % (Manual) 0 % (0-2) Band Neutrophils 0 % (0-8) Platelet Estimate Adequate Platelet Morphology Normal Red Blood Cell Morphology Normal Sodium Level 140 MMOL/L (136-145) Potassium Level 4.1 MMOL/L (3.5-5.1) Chloride Level 104 MMOL/L (98-107) Carbon Dioxide Level 25 MMOL/L (21-32) Anion Gap 11 mmol/L (5-15) Blood Urea Nitrogen 10 mg/dL (7-18) Creatinine 0.6 MG/DL (0.55-1.30) Estimat Glomerular Filtration Rate > 60 mL/min (>60) Glucose Level 112 MG/DL (74-106) H Calcium Level 8.4 MG/DL (8.5-10.1) L Troponin I 0.000 ng/mL (0.000-0.056) Current Medications Medications (Trade) Dose Ordered Sig/Darcie Route PRN Reason Start Time Stop Time Status Last Admin Dose Admin Acetaminophen (Tylenol) 650 mg Q4H PRN ORAL FEVER 05/09/20 03:45 06/08/20 03:44 Albuterol/ Ipratropium (Albuterol/ Ipratropium) 3 ml Q6H PRN HHN Shortness of Breath 05/09/20 03:45 05/14/20 03:44 Amlodipine Besylate (Norvasc) 10 mg DAILY ORAL 05/09/20 09:00 06/08/20 08:59 05/09/20 08:56 Dexamethasone Sodium Phosphate (Decadron 10mg/ ml Inj) 6 mg DAILY IV 05/10/20 09:00 05/19/20 08:59 05/10/20 08:31 Dextrose (Dextrose 50%) 25 ml Q30M PRN IV Hypoglycemia 05/09/20 04:00 08/07/20 03:59 Dextrose (Dextrose 50%) 50 ml Q30M PRN IV Hypoglycemia 05/09/20 04:00 08/07/20 03:59 Docusate Sodium (Colace) 100 mg EVERY 12 HOURS ORAL 05/09/20 09:00 06/08/20 08:59 05/10/20 08:30 Enoxaparin Sodium (Lovenox) 40 mg Q24H SUBQ 05/10/20 09:00 08/08/20 08:59 05/10/20 08:32 Guaifenesin/ Dextromethorphan (Robitussin DM Syrup) 10 ml Q4H PRN ORAL For Cough 05/10/20 03:30 08/08/20 03:29 05/10/20 03:55 Insulin Aspart (NovoLOG) BEFORE MEALS AND HS SUBQ 05/09/20 06:30 08/07/20 06:29 Levofloxacin 150 ml @ 100 mls/hr Q24H IVPB 05/09/20 16:00 05/14/20 16:00 05/09/20 15:36 Magnesium Hydroxide (Mom) 30 ml HSPRN PRN ORAL Constipation 05/09/20 03:45 06/08/20 03:44 Metformin HCl (Glucophage) 1,000 mg DAILY ORAL 05/09/20 09:00 06/08/20 08:59 05/10/20 08:30 Pantoprazole (Protonix) 40 mg ACBREAKFAST ORAL 05/09/20 06:30 06/08/20 06:29 05/09/20 06:31 Vicente Yang MD May 10, 2020 12:13
--- NOTE | 2020-05-10 17:45 | Consultation ---
DATE OF CONSULTATION: 05/10/2020 REASON FOR ADMISSION: Dyspnea, respiratory distress. HISTORY OF PRESENT ILLNESS: A 60-year-old female with past medical history of diabetes, hypertension, CVA/TIA, presented from home for evaluation of her difficulty breathing. She stated she was here on May 04, 2020 and tested positive for COVID-19. She states she was not admitted that day. Since then, she reports feeling short of breath. Currently, she denies fevers, chills, cough, chest pain. Denies any other associated symptoms. On evaluation, she is saturating well on 5 L/minute oxygen via nasal cannula. Chest x-ray shows opacity, suspicious for pneumonia. The patient tested positive for COVID-19 on May 04, 2020. The patient received dexamethasone, Lovenox, and antibiotics and is admitted to the hospital for further management and care. PAST MEDICAL HISTORY: Diabetes, hypertension, CVA/TIA. SURGERIES: None reported. FAMILY HISTORY: Noncontributory. SOCIAL HISTORY: Denies smoking, alcohol use, drug use. ALLERGIES: Penicillin G. ROS: HEENT: Denies any headaches, blurry vision, hoarseness, dysphagia, hearing loss, tinnitus, or loss of balance. CHEST AND LUNGS: Currently denies any chest discomfort or hemoptysis. CARDIOVASCULAR: Denies any exertional chest pain, pressure, palpitation, orthopnea, PND, or ankle swelling. GASTROINTESTINAL: Denies vomiting, abdominal pain, or oily or foul-smelling stools. No constipation or hematochezia. GENITOURINARY: Denies any frequency, urgency, dysuria, hematuria, flank pain, kidney stone, or kidney disease. NEUROLOGICAL: Denies seizure activity, dizziness, or fainting episodes. PHYSICAL EXAMINATION: VITAL SIGNS: Blood pressure 122/76, heart rate 77, respiratory rate 19, weight 79 kg, height 160 cm. HEENT: Head exam reveals that the head is normocephalic, atraumatic without deformity or unusual swelling. Pupils are round, reactive to light and accommodation normally. There is no nystagmus, lid lag, or exophthalmos. Nasal mucosa is pink. Vision is normal. CHEST AND LUNGS: Crackles noted. Expansion is normal. CARDIOVASCULAR: Normal S1, S2 without murmurs, rubs, or clicks. ABDOMEN: Soft with no tenderness or organomegaly. RECTAL: Deferred. MUSCULOSKELETAL: There is no tenderness to palpation. Range of motion is normal. EXTREMITIES: There is no cyanosis, peripheral edema, or clubbing. There is no evidence of insufficiency or skin changes. Pedal pulses are strong and bounding. NEUROLOGICAL: Cranial nerves II through XII are intact. LABORATORY DATA: CBC shows WBC is 11.0, otherwise unremarkable. Chemistry showed calcium 8.4, glucose 112, LDH 483, CRP 4.6. Coag panel shows D-dimer of 1.77. IMPRESSION: 1. COVID-19 pneumonia. 2. Elevated D-dimer and CRP. 3. History of hypertension. 4. Diabetes mellitus. 5. Respiratory distress. RECOMMENDATIONS: Agree with current management; continue Decadron, DVT prophylaxis, antihypertensives, glucose-lowering agents. Defer the use of remdesivir to ID specialist. We will follow carefully. The care for this patient was discussed with my supervising physician. Time spent for this case was approximately 31 minutes. Olivier Lindsay M.D. ALIA Gonzalez DR: BETO/Eduin JOB#: [id number] CC:
--- NOTE | 2020-05-10 18:15 | General Progress Note ---
Subjective Allergies: Coded Allergies: PENICILLIN G (Verified Allergy, Mild, RESPIRATORY DISTRESS, 09/16/09) Subjective Chart reviewed. Patient admitted with COVID pneumonia. Also with possible superimposed bacterial pneumonia. On 3-4L NC. Still feeling very tired. Feels SOB without oxygen. No chest pain, fever or chills. Review of systems: Constitutional: Denies: chills, diaphoresis, fever, malaise, weakness, HEENT: Denies: eye pain, blurred vision, tearing, double vision, ear pain, ear discharge, nose pain, nose congestion, throat pain, throat swelling, mouth pain, mouth swelling, Cardiovascular: Denies: chest pain, edema, lightheadedness, palpitations, syncope, Respiratory: See HPI Gastrointestinal/Abdominal: Denies: abdomen distended, abdominal pain, black stools, tarry stools, blood in stool, constipated, diarrhea, difficulty swallowing, nausea, poor appetite, poor fluid intake, rectal bleeding, vomiting, other Genitourinary: Denies: burning, discharge, frequency, flank pain, hematuria, incontinence, pain, urgency, other Neurologic/Psychiatric: Denies: anxiety, depressed, emotional problems, headache, numbness, paresthesia, pre-existing deficit, seizure, tingling, tremors, weakness, other Endocrine: Denies: excessive sweating, flushing, intolerance to cold, intolerance to heat, increased hunger, increased thirst MSK: denies joint pains, swelling, stiffness Hematologic/Lymphatic: Denies: anemia, easy bleeding, easy bruising, Objective Last 24 Hour Vital Signs Date Time Temp Pulse Resp B/P (MAP) Pulse Ox O2 Delivery O2 Flow Rate FiO2 05/10/20 16:00 98.9 78 18 136/69 (91) 96 05/10/20 12:00 98.0 77 122/76 (91) 94 05/10/20 09:00 Room Air 05/10/20 08:32 80 101/63 05/10/20 08:00 97.7 76 135/74 (94) 95 05/10/20 04:00 98.9 80 101/63 (76) 91 05/10/20 01:25 98.8 74 122/76 (91) 91 05/10/20 00:00 99.0 78 19 127/69 (88) 97 12/14/20 22:03 Room Air 05/09/20 20:00 98.0 71 19 138/78 (98) 98 Intake and Output 05/09/20 05/10/20 19:00 07:00 Intake Total 320 ml Balance 320 ml Intake Oral 320 ml # Voids 1 Laboratory Tests 05/10/20 04:00: White Blood Count 11.0#H, Red Blood Count 4.30, Hemoglobin 12.5, Hematocrit 36.5L, Mean Corpuscular Volume 85, Mean Corpuscular Hemoglobin 29.0, Mean Corpuscular Hemoglobin Concent 34.2, Red Cell Distribution Width 13.1, Platelet Count 299, Mean Platelet Volume 6.4L, Neutrophils (%) (Auto) , Lymphocytes (%) (Auto) , Monocytes (%) (Auto) , Eosinophils (%) (Auto) , Basophils (%) (Auto) , Differential Total Cells Counted 100, Neutrophils % (Manual) 75, Lymphocytes % (Manual) 16L, Monocytes % (Manual) 9, Eosinophils % (Manual) 0, Basophils % (Manual) 0, Band Neutrophils 0, Platelet Estimate Adequate, Platelet Morphology Normal, Red Blood Cell Morphology Normal, Sodium Level 140, Potassium Level 4.1, Chloride Level 104, Carbon Dioxide Level 25, Anion Gap 11, Blood Urea Nitrogen 10, Creatinine 0.6, Estimat Glomerular Filtration Rate > 60, Glucose Level 112H, Calcium Level 8.4L, Troponin I 0.000 Height (Feet): 5 Height (Inches): 3.00 Weight (Pounds): 175 Objective General: WDWN female in NAD, A&O x 4. ON nasal cannula HEENT: Normocephalic cephalic atraumatic, pupils equal round reactive to light and accommodation, nares patent and no symmetrical, no tonsillar exudates, mucous membranes moist CV: Regular rate regular rhythm, no murmurs, rubs, or gallops Pulm: Lungs clear to auscultation bilaterally. No wheezes, rhonchi, or rales GI: Soft, nontender, nondistended, bowel sounds present Neuro: CN 2-12 intact bilaterally, no focal signs. Ext: No lower extremity edema bilaterally Skin: no rashes lesions or ulcers Msk: Joints symmetrical in upper extremity and lower extremity bilaterally, no joint swelling. Lymph: No lymphadenopathy in upper extremity and lower extremity Assessment/Plan Assessment/Plan: #COVID19 PNA #Sepsis due to COVID #Superimposed bacterial pneumonia, CAP #Elevated inflammatory markers - Admit to COVID19 floor - Apply supplemental oxygenation as needed - decadron 6mg IV for 10days (05/09 - ) - Remdesivir per ID - Continue levaquin 750mg IV daily for 5 days (05/09 - ) - Monitor inflammatory markers - ID consulted: Dr. Mi - Pulm consulted: Dr. Lindsay #DMT2 - SSI - Accuchecks - Hypoglycemia protocol #HTN - Start back on home medication Norvasc 10mg daily 36 minutes spent on this encounter, and 2- minutes spent on counseling and care coordination. Discussed with ID and PUlm. Time of note may not reflect time patient was seen. Louis Davis D.O. May 10, 2020 18:15
[2020-05-10] MEDS ORDERED: Albuterol 90mcg Inhaler 8gm INH PRN (21:30)
[2020-05-10] MEDS ORDERED: Zolpidem 5mg tab ORAL ONE (23:15)
[2020-05-11 04:00] VITALS: BP 114/65
[2020-05-11] MEDS: NovoLOG Insulin Flexpen SUBQ SCH ×4 (06:05→21:00)
[2020-05-11 07:30] LABS: BASOPHILS % (AUTO) 0.4 % (0.0-2.0); HEMATOCRIT 36.1 % (37.0-47.0); HEMOGLOBIN 12.1 G/DL (12.0-16.0); MEAN CORPUSCULAR VOLUME 86 FL (80-99); MONOCYTES % (AUTO) 3.4 % (1.0-10.0); NEUTROPHILS % (AUTO) 83.2 % (45.0-75.0); PLATELET COUNT 312 K/UL (150-450); RED BLOOD COUNT 4.18 M/UL (4.20-5.40); WHITE BLOOD COUNT 14.8 K/UL (4.8-10.8)
[2020-05-11 07:50] LABS: PHOSPHORUS 3.6 MG/DL (2.5-4.9)
[2020-05-11 08:00] VITALS: BP 126/72
[2020-05-11 08:03] LABS: ALANINE AMINOTRANSFERASE 32 U/L (12-78); ALBUMIN 2.9 G/DL (3.4-5.0); ALBUMIN/GLOBULIN RATIO 0.7 (1.0-2.7); ALKALINE PHOSPHATASE 53 U/L (46-116); ANION GAP 8 mmol/L (5-15); ASPARTATE AMINO TRANSFERASE 28 U/L (15-37); BILIRUBIN,TOTAL 0.4 MG/DL (0.2-1.0); BLOOD UREA NITROGEN 14 mg/dL (7-18); CALCIUM 8.4 MG/DL (8.5-10.1); CARBON DIOXIDE 28 MMOL/L (21-32); CHLORIDE 102 MMOL/L (98-107); CREATININE 0.8 MG/DL (0.55-1.30); SODIUM 138 MMOL/L (136-145)
[2020-05-11] MEDS: dexAMETHasone 10mg/ml Inj IV SCH (08:39)
[2020-05-11] MEDS: Docusate 100mg cap ORAL SCH ×2 (08:39→21:00)
[2020-05-11] MEDS: metFORMIN 500mg tab ORAL SCH (08:39)
[2020-05-11] MEDS: Enoxaparin 40mg Inj SUBQ SCH (08:40)
[2020-05-11 12:00] VITALS: BP 105/69
--- NOTE | 2020-05-11 12:08 | Pulmonology Progress Note ---
Subjective ROS Limited/Unobtainable: No Interval Events: SOB and difficulty falling asleep; RT gave MDI tx, pt declined; s/p ambien Constitutional: Reports: no symptoms; Denies: fever, chills HEENT: Repors: no symptoms Respiratory: Reports: no symptoms; Denies: shortness of breath, dyspnea at rest Cardiovascular: Reports: no symptoms Gastrointestinal/Abdominal: Reports: no symptoms Genitourinary: Reports: no symptoms Allergies: Coded Allergies: PENICILLIN G (Verified Allergy, Mild, RESPIRATORY DISTRESS, 09/16/09) Objective Last 24 Hour Vital Signs Date Time Temp Pulse Resp B/P (MAP) Pulse Ox O2 Delivery O2 Flow Rate FiO2 05/11/20 09:00 Room Air 05/11/20 08:39 82 126/65 05/11/20 08:00 98.8 78 18 126/72 (90) 98 05/11/20 04:00 99.7 82 23 114/65 (81) 96 05/10/20 21:00 Room Air 05/10/20 20:00 99.0 75 22 117/57 (77) 96 05/10/20 16:00 98.9 78 18 136/69 (91) 96 Intake and Output 05/10/20 05/11/20 19:00 07:00 Intake Total 570 ml 150 ml Balance 570 ml 150 ml Intake Oral 570 ml 150 ml # Voids 3 2 # Bowel Movements 4 Objective 05/11/2020 pt in bed; saturating well on low flow oxygen NC General Appearance: WD/WN, no acute distress HEENT: normocephalic Respiratory: chest wall non-tender, crackles/rales - mild Cardiovascular: normal peripheral pulses, normal rate, no gallop/murmur Abdomen: soft, non tender Microbiology Date/Time Source Procedure Growth Status 05/08/20 23:19 Blood Blood Culture - Preliminary NO GROWTH AFTER 24 HOURS Resulted 05/08/20 23:04 Blood Blood Culture - Preliminary NO GROWTH AFTER 24 HOURS Resulted Laboratory Tests 05/11/20 06:02: POC Whole Blood Glucose 139H 05/11/20 06:34: White Blood Count 14.8H, Red Blood Count 4.18L, Hemoglobin 12.1, Hematocrit 36.1L, Mean Corpuscular Volume 86, Mean Corpuscular Hemoglobin 28.9, Mean Corpuscular Hemoglobin Concent 33.5, Red Cell Distribution Width 13.0, Platelet Count 312, Mean Platelet Volume 6.3L, Neutrophils (%) (Auto) 83.2H, Lymphocytes (%) (Auto) 13.0L, Monocytes (%) (Auto) 3.4, Eosinophils (%) (Auto) 0.0, Basophils (%) (Auto) 0.4, Sodium Level 138, Potassium Level 4.0, Chloride Level 102, Carbon Dioxide Level 28, Anion Gap 8, Blood Urea Nitrogen 14, Creatinine 0.8, Estimat Glomerular Filtration Rate > 60, Glucose Level 129H, Calcium Level 8.4L, Phosphorus Level 3.6, Magnesium Level 2.0, Total Bilirubin 0.4, Aspartate Amino Transf (AST/SGOT) 28, Alanine Aminotransferase (ALT/SGPT) 32, Alkaline Phosphatase 53, Total Protein 7.2, Albumin 2.9L, Globulin 4.3, Albumin/Globulin Ratio 0.7L Current Medications Medications (Trade) Dose Ordered Sig/Darcie Route PRN Reason Start Time Stop Time Status Last Admin Dose Admin Acetaminophen (Tylenol) 650 mg Q4H PRN ORAL FEVER 05/09/20 03:45 06/08/20 03:44 Albuterol Sulfate (Proventil MDI) 2 puff Q4H PRN INH Shortness of Breath 05/10/20 21:30 08/08/20 21:29 Amlodipine Besylate (Norvasc) 10 mg DAILY ORAL 05/09/20 09:00 06/08/20 08:59 05/09/20 08:56 Dexamethasone Sodium Phosphate (Decadron 10mg/ ml Inj) 6 mg DAILY IV 05/10/20 09:00 05/19/20 08:59 05/11/20 08:39 Dextrose (Dextrose 50%) 25 ml Q30M PRN IV Hypoglycemia 05/09/20 04:00 08/07/20 03:59 Dextrose (Dextrose 50%) 50 ml Q30M PRN IV Hypoglycemia 05/09/20 04:00 08/07/20 03:59 Docusate Sodium (Colace) 100 mg EVERY 12 HOURS ORAL 05/09/20 09:00 06/08/20 08:59 05/11/20 08:39 Enoxaparin Sodium (Lovenox) 40 mg Q24H SUBQ 05/10/20 09:00 08/08/20 08:59 05/11/20 08:40 Guaifenesin/ Dextromethorphan (Robitussin DM Syrup) 10 ml Q4H PRN ORAL For Cough 05/10/20 03:30 08/08/20 03:29 05/10/20 21:19 Insulin Aspart (NovoLOG) BEFORE MEALS AND HS SUBQ 05/09/20 06:30 08/07/20 06:29 Levofloxacin 150 ml @ 100 mls/hr Q24H IVPB 05/09/20 16:00 05/14/20 16:00 05/10/20 15:05 Magnesium Hydroxide (Mom) 30 ml HSPRN PRN ORAL Constipation 05/09/20 03:45 06/08/20 03:44 Metformin HCl (Glucophage) 1,000 mg DAILY ORAL 05/09/20 09:00 06/08/20 08:59 05/11/20 08:39 Pantoprazole (Protonix) 40 mg ACBREAKFAST ORAL 05/09/20 06:30 06/08/20 06:29 05/11/20 05:33 Assessment/Plan Assessment/Plan 1. COVID-19 pneumonia. - on decadron - CXR shows bilateral infiltrates 2. Elevated inflammatory markers 3. History of hypertension. 4. Diabetes mellitus. 5. Respiratory distress. 6. Leukocytosis RECOMMENDATIONS: Agree with current management; continue Decadron, DVT prophylaxis, antihypertensives, glucose-lowering agents. Cont oxygen support Defer the use of remdesivir to ID specialist. We will follow carefully. The care for this patient was discussed with my supervising physician. Time spent for this case was approximately 31 minutes. The patient was seen and examined at bedside and all new and available data was reviewed in the patients chart. I agree with the above findings, impression, and plan. (Patient was seen earlier today. Signature timestamp does not reflect patient encounter time) Alejandro Olsen MD May 11, 2020 12:08 Olivier Lindsay MD May 11, 2020 17:41
[2020-05-11 16:00] VITALS: BP 109/60
[2020-05-11 20:00] VITALS: BP 100/63
--- NOTE | 2020-05-11 20:04 | General Progress Note ---
Subjective Allergies: Coded Allergies: PENICILLIN G (Verified Allergy, Mild, RESPIRATORY DISTRESS, 09/16/09) Subjective NO acute events overnight per nursing. Patient remains on 4L nasal cannula. Stable. Still SOB and with intermittent cough. No fever, or chest pain. No nausea or vomiting. Review of systems: Constitutional: Denies: chills, diaphoresis, fever, malaise, weakness, HEENT: Denies: eye pain, blurred vision, tearing, double vision, ear pain, ear discharge, nose pain, nose congestion, throat pain, throat swelling, mouth pain, mouth swelling, Cardiovascular: Denies: chest pain, edema, lightheadedness, palpitations, syncope, Respiratory: See HPI Gastrointestinal/Abdominal: Denies: abdomen distended, abdominal pain, black stools, tarry stools, blood in stool, constipated, diarrhea, difficulty swallowing, nausea, poor appetite, poor fluid intake, rectal bleeding, vomiting, other Genitourinary: Denies: burning, discharge, frequency, flank pain, hematuria, incontinence, pain, urgency, other Neurologic/Psychiatric: Denies: anxiety, depressed, emotional problems, headache, numbness, paresthesia, pre-existing deficit, seizure, tingling, tremors, weakness, other Endocrine: Denies: excessive sweating, flushing, intolerance to cold, intolerance to heat, increased hunger, increased thirst MSK: denies joint pains, swelling, stiffness Hematologic/Lymphatic: Denies: anemia, easy bleeding, easy bruising, Objective Last 24 Hour Vital Signs Date Time Temp Pulse Resp B/P (MAP) Pulse Ox O2 Delivery O2 Flow Rate FiO2 05/11/20 16:00 97.7 70 18 109/60 (76) 99 05/11/20 12:00 98.8 81 18 105/69 (81) 97 05/11/20 09:00 Room Air 05/11/20 08:39 82 126/65 05/11/20 08:00 98.8 78 18 126/72 (90) 98 05/11/20 04:00 99.7 82 23 114/65 (81) 96 05/10/20 21:00 Room Air Intake and Output 05/10/20 05/11/20 19:00 07:00 Intake Total 570 ml 150 ml Balance 570 ml 150 ml Intake Oral 570 ml 150 ml # Voids 3 2 # Bowel Movements 4 Laboratory Tests 05/11/20 06:02: POC Whole Blood Glucose 139H 05/11/20 06:34: White Blood Count 14.8H, Red Blood Count 4.18L, Hemoglobin 12.1, Hematocrit 36.1L, Mean Corpuscular Volume 86, Mean Corpuscular Hemoglobin 28.9, Mean Corpuscular Hemoglobin Concent 33.5, Red Cell Distribution Width 13.0, Platelet Count 312, Mean Platelet Volume 6.3L, Neutrophils (%) (Auto) 83.2H, Lymphocytes (%) (Auto) 13.0L, Monocytes (%) (Auto) 3.4, Eosinophils (%) (Auto) 0.0, Basophils (%) (Auto) 0.4, Sodium Level 138, Potassium Level 4.0, Chloride Level 102, Carbon Dioxide Level 28, Anion Gap 8, Blood Urea Nitrogen 14, Creatinine 0.8, Estimat Glomerular Filtration Rate > 60, Glucose Level 129H, Calcium Level 8.4L, Phosphorus Level 3.6, Magnesium Level 2.0, Total Bilirubin 0.4, Aspartate Amino Transf (AST/SGOT) 28, Alanine Aminotransferase (ALT/SGPT) 32, Alkaline Phosphatase 53, Total Protein 7.2, Albumin 2.9L, Globulin 4.3, Albumin/Globulin Ratio 0.7L 05/11/20 16:26: Arterial Blood pH 7.417, Arterial Blood Partial Pressure CO2 37.3, Arterial Blood Partial Pressure O2 144.8H, Arterial Blood HCO3 23.5, Arterial Blood Oxygen Saturation 98.4, Arterial Blood Base Excess -0.7, Juice Test Positive Height (Feet): 5 Height (Inches): 3.00 Weight (Pounds): 175 Objective General: WDWN female in NAD, A&O x 4. ON nasal cannula. Stable HEENT: Normocephalic cephalic atraumatic, pupils equal round reactive to light and accommodation, nares patent and no symmetrical, no tonsillar exudates, mucous membranes moist CV: Regular rate regular rhythm, no murmurs, rubs, or gallops Pulm: Lungs clear to auscultation bilaterally. No wheezes, rhonchi, or rales GI: Soft, nontender, nondistended, bowel sounds present Neuro: CN 2-12 intact bilaterally, no focal signs. Ext: No lower extremity edema bilaterally Skin: no rashes lesions or ulcers Msk: Joints symmetrical in upper extremity and lower extremity bilaterally, no joint swelling. Lymph: No lymphadenopathy in upper extremity and lower extremity Assessment/Plan Assessment/Plan: #COVID19 PNA #Sepsis due to COVID #Superimposed bacterial pneumonia, CAP #Elevated inflammatory markers #Acute hypoxic respiratory failure due to COVID - Admit to COVID19 floor - Apply supplemental oxygenation as needed - decadron 6mg IV for 10days (05/09 - ) - Remdesivir per ID - Continue levaquin 750mg IV daily for 5 days (05/09 - ) - Monitor inflammatory markers - ID consulted: Dr. Mi - Pulm consulted: Dr. Lindsay #DMT2 - SSI - Accuchecks - Hypoglycemia protocol #HTN - Start back on home medication Norvasc 10mg daily 38 minutes spent on this encounter, and 20 minutes spent on counseling and care coordination. Discussed with ID and PUlm. Time of note may not reflect time patient was seen. Louis Davis D.O. May 11, 2020 20:04
--- NOTE | 2020-05-11 20:26 | Infectious Diseases Prog Note ---
Assessment/Plan Assessment/Plan A) 1) covid-19 with pna, ? cap 2) pmh noted 3) allergies - nkda 4) allergies - pcn P) 1) dexamethasone, levofloxacin 2) monitor for hypoxia - saturations stable on RA, patient on breathing mask for subjective dyspnea per RN 3) consider Remdesivir if worsens - patient says has had symptoms for 2 weeks, ? benefit remdesivir 4) will f/u Subjective Constitutional: Reports: other - on NR for subjective dyspnea, saturations were stable ; Denies: fever HEENT: Reports: congestion Respiratory: Reports: shortness of breath Cardiovascular: Denies: chest pain Gastrointestinal/Abdominal: Denies: nausea, vomiting, diarrhea Allergies: Coded Allergies: PENICILLIN G (Verified Allergy, Mild, RESPIRATORY DISTRESS, 09/16/09) Objective Last 24 Hour Vital Signs Date Time Temp Pulse Resp B/P (MAP) Pulse Ox O2 Delivery O2 Flow Rate FiO2 05/11/20 16:00 97.7 70 18 109/60 (76) 99 05/11/20 12:00 98.8 81 18 105/69 (81) 97 05/11/20 09:00 Room Air 05/11/20 08:39 82 126/65 05/11/20 08:00 98.8 78 18 126/72 (90) 98 05/11/20 04:00 99.7 82 23 114/65 (81) 96 05/10/20 21:00 Room Air Height (Feet): 5 Height (Inches): 3.00 Weight (Pounds): 175 General Appearance: no acute distress HEENT: normocephalic, atraumatic, anicteric Respiratory/Chest: crackles/rales, rhonchi - bilaterally Cardiovascular: normal rate, regular rhythm Abdomen: normal bowel sounds, soft, non tender, no organomegaly Microbiology Date/Time Source Procedure Growth Status 05/08/20 23:19 Blood Blood Culture - Preliminary NO GROWTH AFTER 48 HOURS Resulted 05/08/20 23:04 Blood Blood Culture - Preliminary NO GROWTH AFTER 48 HOURS Resulted Laboratory Tests Test 05/11/20 06:02 05/11/20 06:34 05/11/20 16:26 POC Whole Blood Glucose 139 MG/DL (74-106) H White Blood Count 14.8 K/UL (4.8-10.8) H Red Blood Count 4.18 M/UL (4.20-5.40) L Hemoglobin 12.1 G/DL (12.0-16.0) Hematocrit 36.1 % (37.0-47.0) L Mean Corpuscular Volume 86 FL (80-99) Mean Corpuscular Hemoglobin 28.9 PG (27.0-31.0) Mean Corpuscular Hemoglobin Concent 33.5 G/DL (32.0-36.0) Red Cell Distribution Width 13.0 % (11.6-14.8) Platelet Count 312 K/UL (150-450) Mean Platelet Volume 6.3 FL (6.5-10.1) L Neutrophils (%) (Auto) 83.2 % (45.0-75.0) H Lymphocytes (%) (Auto) 13.0 % (20.0-45.0) L Monocytes (%) (Auto) 3.4 % (1.0-10.0) Eosinophils (%) (Auto) 0.0 % (0.0-3.0) Basophils (%) (Auto) 0.4 % (0.0-2.0) Sodium Level 138 MMOL/L (136-145) Potassium Level 4.0 MMOL/L (3.5-5.1) Chloride Level 102 MMOL/L (98-107) Carbon Dioxide Level 28 MMOL/L (21-32) Anion Gap 8 mmol/L (5-15) Blood Urea Nitrogen 14 mg/dL (7-18) Creatinine 0.8 MG/DL (0.55-1.30) Estimat Glomerular Filtration Rate > 60 mL/min (>60) Glucose Level 129 MG/DL (74-106) H Calcium Level 8.4 MG/DL (8.5-10.1) L Phosphorus Level 3.6 MG/DL (2.5-4.9) Magnesium Level 2.0 MG/DL (1.8-2.4) Total Bilirubin 0.4 MG/DL (0.2-1.0) Aspartate Amino Transf (AST/SGOT) 28 U/L (15-37) Alanine Aminotransferase (ALT/SGPT) 32 U/L (12-78) Alkaline Phosphatase 53 U/L (46-116) Total Protein 7.2 G/DL (6.4-8.2) Albumin 2.9 G/DL (3.4-5.0) L Globulin 4.3 g/dL Albumin/Globulin Ratio 0.7 (1.0-2.7) L Arterial Blood pH 7.417 (7.350-7.450) Arterial Blood Partial Pressure CO2 37.3 mmHg (35.0-45.0) Arterial Blood Partial Pressure O2 144.8 mmHg (75.0-100.0) H Arterial Blood HCO3 23.5 mmol/L (22.0-26.0) Arterial Blood Oxygen Saturation 98.4 % (95-100) Arterial Blood Base Excess -0.7 (-2-2) Juice Test Positive Current Medications Medications (Trade) Dose Ordered Sig/Darcie Route PRN Reason Start Time Stop Time Status Last Admin Dose Admin Acetaminophen (Tylenol) 650 mg Q4H PRN ORAL FEVER 05/09/20 03:45 06/08/20 03:44 Albuterol Sulfate (Proventil MDI) 2 puff Q4H PRN INH Shortness of Breath 05/10/20 21:30 08/08/20 21:29 Amlodipine Besylate (Norvasc) 10 mg DAILY ORAL 05/09/20 09:00 06/08/20 08:59 05/09/20 08:56 Dexamethasone Sodium Phosphate (Decadron 10mg/ ml Inj) 6 mg DAILY IV 05/10/20 09:00 05/19/20 08:59 05/11/20 08:39 Dextrose (Dextrose 50%) 25 ml Q30M PRN IV Hypoglycemia 05/09/20 04:00 08/07/20 03:59 Dextrose (Dextrose 50%) 50 ml Q30M PRN IV Hypoglycemia 05/09/20 04:00 08/07/20 03:59 Docusate Sodium (Colace) 100 mg EVERY 12 HOURS ORAL 05/09/20 09:00 06/08/20 08:59 05/11/20 08:39 Enoxaparin Sodium (Lovenox) 40 mg Q24H SUBQ 05/10/20 09:00 08/08/20 08:59 05/11/20 08:40 Guaifenesin/ Dextromethorphan (Robitussin DM Syrup) 10 ml Q4H PRN ORAL For Cough 05/10/20 03:30 08/08/20 03:29 12/15/20 21:19 Insulin Aspart (NovoLOG) BEFORE MEALS AND HS SUBQ 05/09/20 06:30 08/07/20 06:29 Levofloxacin 150 ml @ 100 mls/hr Q24H IVPB 05/09/20 16:00 05/14/20 16:00 05/11/20 16:13 Magnesium Hydroxide (Mom) 30 ml HSPRN PRN ORAL Constipation 05/09/20 03:45 06/08/20 03:44 Metformin HCl (Glucophage) 1,000 mg DAILY ORAL 05/09/20 09:00 06/08/20 08:59 05/11/20 08:39 Pantoprazole (Protonix) 40 mg ACBREAKFAST ORAL 05/09/20 06:30 06/08/20 06:29 05/11/20 05:33 Vicente Yang MD May 11, 2020 20:26
[2020-05-11] MEDS: Zolpidem 5mg tab ORAL SCH (21:50)
[2020-05-12] VITALS: BP 148/98
[2020-05-12 04:00] VITALS: BP 105/58
[2020-05-12] MEDS: NovoLOG Insulin Flexpen SUBQ SCH ×4 (06:30→20:49)
[2020-05-12 08:00] VITALS: BP 126/79
[2020-05-12] MEDS: metFORMIN 500mg tab ORAL SCH (08:41)
[2020-05-12] MEDS: dexAMETHasone 10mg/ml Inj IV SCH (08:41)
[2020-05-12] MEDS: Enoxaparin 40mg Inj SUBQ SCH (08:44)
[2020-05-12] MEDS: Docusate 100mg cap ORAL SCH ×2 (08:52→20:49)
[2020-05-12 09:14] LABS: BASOPHILS % (AUTO) 0.7 % (0.0-2.0); HEMATOCRIT 33.7 % (37.0-47.0); LYMPHOCYTES % (AUTO) 10.9 % (20.0-45.0); MEAN CORPUSCULAR VOLUME 82 FL (80-99); MONOCYTES % (AUTO) 4.6 % (1.0-10.0); NEUTROPHILS % (AUTO) 83.7 % (45.0-75.0); PLATELET COUNT 338 K/UL (150-450); RED BLOOD COUNT 4.09 M/UL (4.20-5.40); RED CELL DISTRIBUTION WIDTH 14.5 % (11.6-14.8); WHITE BLOOD COUNT 13.4 K/UL (4.8-10.8)
[2020-05-12 09:35] LABS: ANION GAP 8 mmol/L (5-15); BLOOD UREA NITROGEN 17 mg/dL (7-18); CALCIUM 8.5 MG/DL (8.5-10.1); CARBON DIOXIDE 28 MMOL/L (21-32); CHLORIDE 101 MMOL/L (98-107); CREATININE 0.7 MG/DL (0.55-1.30); PHOSPHORUS 3.3 MG/DL (2.5-4.9); POTASSIUM 3.9 MMOL/L (3.5-5.1); SODIUM 136 MMOL/L (136-145)
--- NOTE | 2020-05-12 09:54 | Diagnostic Imaging Report ---
Indication: Bilateral lower extremity pain Technique: Grayscale and duplex images of the bilateral lower extremity veins Comparison: Findings: Bilaterally, grayscale and duplex images demonstrate no evidence of intraluminal thrombus. Normal phasic Doppler waveforms, demonstrating normal augmentation response and no evidence of valvular insufficiency. Greater saphenous vein(s) and tibial veins are patent. Normal compressibility. Impression: Negative for evidence of lower extremity deep venous thrombosis bilaterally
--- NOTE | 2020-05-12 10:18 | Diagnostic Imaging Report ---
Indication: Shortness of breath Technique: One view of the chest Comparison: 05/08/2020 Findings: There is increase in right-sided and new left peripheral peribronchovascular infiltrates. Pleural spaces are clear. The heart size is normal. Impression: Worsening worsening right and new left infiltrates, likely reflects increasing focal pneumonia
--- NOTE | 2020-05-12 10:44 | Pulmonology Progress Note ---
Subjective ROS Limited/Unobtainable: No Interval Events: now on Venturi mask 14L; changed per RT as pO2 was too high yesterday Constitutional: Reports: other - on Venturi mask 14L new; Denies: fever HEENT: Repors: no symptoms Respiratory: Reports: no symptoms; Denies: shortness of breath, dyspnea at rest Cardiovascular: Reports: no symptoms Gastrointestinal/Abdominal: Denies: nausea, vomiting, diarrhea Genitourinary: Reports: no symptoms Allergies: Coded Allergies: PENICILLIN G (Verified Allergy, Mild, RESPIRATORY DISTRESS, 09/16/09) Objective Last 24 Hour Vital Signs Date Time Temp Pulse Resp B/P (MAP) Pulse Ox O2 Delivery O2 Flow Rate FiO2 05/12/20 09:00 Venturi Mask 14.0 05/12/20 08:52 69 126/79 05/12/20 08:00 97.3 69 19 126/79 (95) 96 05/12/20 04:00 97.7 62 36 105/58 (74) 93 05/12/20 00:00 97.9 59 32 148/98 (115) 92 05/11/20 21:00 Venturi Mask 14.0 05/11/20 20:00 97.9 61 32 100/63 (75) 99 05/11/20 16:00 97.7 70 18 109/60 (76) 99 05/11/20 12:00 98.8 81 18 105/69 (81) 97 Intake and Output 05/11/20 05/12/20 19:00 07:00 Intake Total 800 ml 400 ml Balance 800 ml 400 ml Intake Oral 800 ml 400 ml # Voids 3 4 # Bowel Movements 1 3 Objective 05/12/2020 pt in bed saturating well on Venturi mask 14L 05/11/2020 pt in bed; saturating well on low flow oxygen NC General Appearance: WD/WN, no acute distress HEENT: normocephalic Respiratory: chest wall non-tender, crackles/rales - mild Cardiovascular: normal peripheral pulses, normal rate, no gallop/murmur Abdomen: soft, non tender Laboratory Tests 05/11/20 16:26: Arterial Blood pH 7.417, Arterial Blood Partial Pressure CO2 37.3, Arterial Blood Partial Pressure O2 144.8H, Arterial Blood HCO3 23.5, Arterial Blood Oxygen Saturation 98.4, Arterial Blood Base Excess -0.7, Juice Test Positive 12/16/20 21:18: POC Whole Blood Glucose 149H 05/12/20 06:30: POC Whole Blood Glucose 130H 05/12/20 08:35: White Blood Count 13.4H, Red Blood Count 4.09L, Hemoglobin 12.0, Hematocrit 33.7L, Mean Corpuscular Volume 82, Mean Corpuscular Hemoglobin 29.2, Mean Corpuscular Hemoglobin Concent 35.5, Red Cell Distribution Width 14.5, Platelet Count 338, Mean Platelet Volume 6.1L, Neutrophils (%) (Auto) 83.7H, Lymphocytes (%) (Auto) 10.9L, Monocytes (%) (Auto) 4.6, Eosinophils (%) (Auto) 0.0, Basophils (%) (Auto) 0.7, Sodium Level 136, Potassium Level 3.9, Chloride Level 101, Carbon Dioxide Level 28, Anion Gap 8, Blood Urea Nitrogen 17, Creatinine 0.7, Estimat Glomerular Filtration Rate > 60, Glucose Level 148H, Calcium Level 8.5, Phosphorus Level 3.3, Magnesium Level 2.1 Current Medications Medications (Trade) Dose Ordered Sig/Darcie Route PRN Reason Start Time Stop Time Status Last Admin Dose Admin Acetaminophen (Tylenol) 650 mg Q4H PRN ORAL FEVER 05/09/20 03:45 06/08/20 03:44 Albuterol Sulfate (Proventil MDI) 2 puff Q4H PRN INH Shortness of Breath 05/10/20 21:30 08/08/20 21:29 Amlodipine Besylate (Norvasc) 10 mg DAILY ORAL 05/09/20 09:00 06/08/20 08:59 05/09/20 08:56 Dexamethasone Sodium Phosphate (Decadron 10mg/ ml Inj) 6 mg DAILY IV 05/10/20 09:00 05/19/20 08:59 05/12/20 08:41 Dextrose (Dextrose 50%) 25 ml Q30M PRN IV Hypoglycemia 05/09/20 04:00 08/07/20 03:59 Dextrose (Dextrose 50%) 50 ml Q30M PRN IV Hypoglycemia 05/09/20 04:00 08/07/20 03:59 Docusate Sodium (Colace) 100 mg EVERY 12 HOURS ORAL 05/09/20 09:00 06/08/20 08:59 05/11/20 08:39 Enoxaparin Sodium (Lovenox) 40 mg Q24H SUBQ 05/10/20 09:00 08/08/20 08:59 05/12/20 08:44 Famotidine (Pepcid) 20 mg DAILY ORAL 05/11/20 21:15 08/09/20 21:14 05/12/20 08:41 Guaifenesin/ Dextromethorphan (Robitussin DM Syrup) 10 ml Q4H PRN ORAL For Cough 05/10/20 03:30 08/08/20 03:29 05/10/20 21:19 Insulin Aspart (NovoLOG) BEFORE MEALS AND HS SUBQ 05/09/20 06:30 08/07/20 06:29 Levofloxacin 150 ml @ 100 mls/hr Q24H IVPB 05/09/20 16:00 05/14/20 16:00 05/11/20 16:13 Magnesium Hydroxide (Mom) 30 ml HSPRN PRN ORAL Constipation 05/09/20 03:45 06/08/20 03:44 Metformin HCl (Glucophage) 1,000 mg DAILY ORAL 05/09/20 09:00 06/08/20 08:59 05/12/20 08:41 Pantoprazole (Protonix) 40 mg ACBREAKFAST ORAL 05/09/20 06:30 06/08/20 06:29 05/12/20 06:33 Zolpidem Tartrate (Ambien) 5 mg HSPRN ORAL 05/11/20 21:15 05/18/20 21:14 05/11/20 21:50 Assessment/Plan Assessment/Plan 1. COVID-19 pneumonia. - on decadron - defer use of remdesivir to ID - CXR 05/12 shows worsening right, new left infiltrates likely focal pneumonia - lasix added - On Levaquin and IV Vanco as well 2. Elevated inflammatory markers 3. History of hypertension. 4. Diabetes mellitus. 5. Respiratory distress. - cont supplemental oxygen 6. Leukocytosis RECOMMENDATIONS: continue Decadron, DVT prophylaxis, antihypertensives, glucose-lowering agents. We will follow carefully. The care for this patient was discussed with my supervising physician. Time spent for this case was approximately 31 minutes. Alejandro Mckenna May 12, 2020 10:44 Olivier Lindsay MD May 12, 2020 17:32
[2020-05-12] MEDS ORDERED: Omnipaque 350 100ml vial INJ PRN (11:45)
[2020-05-12 12:00] VITALS: BP 121/83
--- NOTE | 2020-05-12 13:42 | Infectious Diseases Prog Note ---
Assessment/Plan Assessment/Plan A) 1) covid-19 with pna, ? cap, hypoxia, now on venturi mask 2) pmh noted 3) allergies - nkda 4) allergies - pcn P) 1) dexamethasone, levofloxacin, vancomycin 2) consider starting remdesivir since respiratory worse 3) d/w primary team 4) will f/u Subjective Constitutional: Reports: fatigue; Denies: fever HEENT: Reports: congestion Respiratory: Reports: shortness of breath Cardiovascular: Denies: chest pain Gastrointestinal/Abdominal: Denies: nausea, vomiting, diarrhea Genitourinary: Reports: other - no ayoub Neurologic: Denies: headache Psychiatric: Denies: depression Skin: Denies: rash Allergies: Coded Allergies: PENICILLIN G (Verified Allergy, Mild, RESPIRATORY DISTRESS, 09/16/09) Objective Last 24 Hour Vital Signs Date Time Temp Pulse Resp B/P (MAP) Pulse Ox O2 Delivery O2 Flow Rate FiO2 05/12/20 12:00 98.4 70 18 121/83 (96) 98 05/12/20 09:00 Venturi Mask 14.0 05/12/20 08:52 69 126/79 05/12/20 08:00 97.3 69 19 126/79 (95) 96 05/12/20 04:00 97.7 62 36 105/58 (74) 93 05/12/20 00:00 97.9 59 32 148/98 (115) 92 05/11/20 21:00 Venturi Mask 14.0 05/11/20 20:00 97.9 61 32 100/63 (75) 99 05/11/20 16:00 97.7 70 18 109/60 (76) 99 Height (Feet): 5 Height (Inches): 3.00 Weight (Pounds): 175 General Appearance: no acute distress HEENT: normocephalic, atraumatic, anicteric Respiratory/Chest: crackles/rales, rhonchi - bilaterally Cardiovascular: normal rate, regular rhythm, no gallop/murmur Abdomen: normal bowel sounds, soft, non tender, no organomegaly Genitourinary: other - no ayoub Extremities: no cyanosis Skin: no rash Neurologic/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8) H Red Blood Count 4.09 M/UL (4.20-5.40) L Hemoglobin 12.0 G/DL (12.0-16.0) Hematocrit 33.7 % (37.0-47.0) L Mean Corpuscular Volume 82 FL (80-99) Mean Corpuscular Hemoglobin 29.2 PG (27.0-31.0) Mean Corpuscular Hemoglobin Concent 35.5 G/DL (32.0-36.0) Red Cell Distribution Width 14.5 % (11.6-14.8) Platelet Count 338 K/UL (150-450) Mean Platelet Volume 6.1 FL (6.5-10.1) L Neutrophils (%) (Auto) 83.7 % (45.0-75.0) H Lymphocytes (%) (Auto) 10.9 % (20.0-45.0) L Monocytes (%) (Auto) 4.6 % (1.0-10.0) Eosinophils (%) (Auto) 0.0 % (0.0-3.0) Basophils (%) (Auto) 0.7 % (0.0-2.0) Sodium Level 136 MMOL/L (136-145) Potassium Level 3.9 MMOL/L (3.5-5.1) Chloride Level 101 MMOL/L (98-107) Carbon Dioxide Level 28 MMOL/L (21-32) Anion Gap 8 mmol/L (5-15) Blood Urea Nitrogen 17 mg/dL (7-18) Creatinine 0.7 MG/DL (0.55-1.30) Estimat Glomerular Filtration Rate > 60 mL/min (>60) Glucose Level 148 MG/DL (74-106) H Calcium Level 8.5 MG/DL (8.5-10.1) Phosphorus Level 3.3 MG/DL (2.5-4.9) Magnesium Level 2.1 MG/DL (1.8-2.4) Pro-B-Type Natriuretic Peptide Pending POC Whole Blood Glucose 138 MG/DL (74-106) H Current Medications Medications (Trade) Dose Ordered Sig/Darcie Route PRN Reason Start Time Stop Time Status Last Admin Dose Admin Acetaminophen (Tylenol) 650 mg Q4H PRN ORAL FEVER 05/09/20 03:45 06/08/20 03:44 Albuterol Sulfate (Proventil MDI) 2 puff Q4H PRN INH Shortness of Breath 05/10/20 21:30 08/08/20 21:29 Amlodipine Besylate (Norvasc) 10 mg DAILY ORAL 05/09/20 09:00 06/08/20 08:59 05/09/20 08:56 Dexamethasone Sodium Phosphate (Decadron 10mg/ ml Inj) 6 mg DAILY IV 05/10/20 09:00 05/19/20 08:59 05/12/20 08:41 Dextrose (Dextrose 50%) 25 ml Q30M PRN IV Hypoglycemia 05/09/20 04:00 08/07/20 03:59 Dextrose (Dextrose 50%) 50 ml Q30M PRN IV Hypoglycemia 05/09/20 04:00 08/07/20 03:59 Docusate Sodium (Colace) 100 mg EVERY 12 HOURS ORAL 05/09/20 09:00 06/08/20 08:59 05/11/20 08:39 Enoxaparin Sodium (Lovenox) 40 mg Q24H SUBQ 05/10/20 09:00 08/08/20 08:59 05/12/20 08:44 Famotidine (Pepcid) 20 mg DAILY ORAL 05/11/20 21:15 08/09/20 21:14 05/12/20 08:41 Furosemide (Lasix) 20 mg ONCE IV 05/12/20 11:45 05/12/20 14:30 05/12/20 12:19 Guaifenesin/ Dextromethorphan (Robitussin DM Syrup) 10 ml Q4H PRN ORAL For Cough 05/10/20 03:30 08/08/20 03:29 05/10/20 21:19 Insulin Aspart (NovoLOG) BEFORE MEALS AND HS SUBQ 05/09/20 06:30 08/07/20 06:29 Iohexol (Omnipaque 350 100ml) 100 ml NOW PRN INJ Radiology Procedure 05/12/20 11:45 05/14/20 11:44 Levofloxacin 150 ml @ 100 mls/hr Q24H IVPB 05/09/20 16:00 05/14/20 16:00 05/11/20 16:13 Magnesium Hydroxide (Mom) 30 ml HSPRN PRN ORAL Constipation 05/09/20 03:45 06/08/20 03:44 Pantoprazole (Protonix) 40 mg ACBREAKFAST ORAL 05/09/20 06:30 06/08/20 06:29 05/12/20 06:33 Vancomycin HCl (Vanco pharmacy to dose) 1 ea DAILY PRN MISC Per rx protocol 05/12/20 11:45 06/11/20 11:44 Vancomycin HCl 1 gm/Sodium Chloride 275 ml @ 183.708 mls/hr Q12HR@0200,1400 IVPB 05/12/20 14:00 05/17/20 13:59 Zolpidem Tartrate (Ambien) 5 mg HSPRN ORAL 05/11/20 21:15 05/18/20 21:14 05/11/20 21:50 Vicente Yang MD May 12, 2020 13:42
[2020-05-12] MEDS: Vancomycin 1 GM in NS 275 ML IVPB SCH (14:16)
[2020-05-12 16:00] VITALS: BP 127/81
[2020-05-12] MEDS ORDERED: Loading Dose:Remdesivir 200mg/NS 210ml IV SCH ×2 (16:00)
--- NOTE | 2020-05-12 16:10 | Diagnostic Imaging Report ---
ndication: Shortness of breath Technique: IV administration nonionic contrast. Spiral acquisitions obtained from the lung bases to the lung apices. Multiplanar and 3-D reconstructions were generated. Total dose length product 199 mGycm. CTDIvol(s) one, 21, 5 mGy. Dose reduction achieved using automated exposure control Comparison: Noncontrast chest CT dated 06/25/2019 Findings: Pulmonary arteries are well opacified. No intraluminal filling defects or other findings to suggest acute pulmonary embolus are demonstrated. The pulmonary arteries are normal in caliber. The heart is mildly enlarged, but there is no evidence of isolated right ventricular dilatation. No evidence of thoracic aortic aneurysm or dissection is demonstrated. Normal caliber and branching anatomy of the great neck vessels. Fairly extensive groundglass opacity and dense consolidation is seen within both lungs, more extensive on the right than on the left. There also appears to be posterior dependent atelectasis bilaterally. No effusion. No pericardial effusion. No mediastinal or hilar mass or adenopathy. No axillary or chest wall mass or adenopathy. The included upper abdominal anatomy demonstrates diffuse hepatic low attenuation. Pulmonary parenchymal disease is much more extensive than those demonstrated on the prior May exam. Other findings are similar. Impression: Negative for evidence of acute pulmonary embolus Extensive bilateral infiltrates, likely multifocal pneumonia and quite likely viral Mild cardiomegaly Fatty liver, also previously reported The CT scanner at [facility] is accredited by the [employer] and the scans are performed using protocols designed to limit radiation exposure to as low as reasonably achievable to attain images of sufficient resolution adequate for diagnostic evaluation.
--- NOTE | 2020-05-12 18:30 | General Progress Note ---
Subjective Allergies: Coded Allergies: PENICILLIN G (Verified Allergy, Mild, RESPIRATORY DISTRESS, 09/16/09) Subjective NO acute events overnight per nursing. Patient desturating to 88% on RA. Started on remdesivir. Still SOB and with intermittent cough. No fever, or chest pain. No nausea or vomiting. Review of systems: Constitutional: Denies: chills, diaphoresis, fever, malaise, weakness, HEENT: Denies: eye pain, blurred vision, tearing, double vision, ear pain, ear discharge, nose pain, nose congestion, throat pain, throat swelling, mouth pain, mouth swelling, Cardiovascular: Denies: chest pain, edema, lightheadedness, palpitations, syncope, Respiratory: See HPI Gastrointestinal/Abdominal: Denies: abdomen distended, abdominal pain, black stools, tarry stools, blood in stool, constipated, diarrhea, difficulty s wallowing, nausea, poor appetite, poor fluid intake, rectal bleeding, vomiting, other Genitourinary: Denies: burning, discharge, frequency, flank pain, hematuria, incontinence, pain, urgency, other Neurologic/Psychiatric: Denies: anxiety, depressed, emotional problems, headache, numbness, paresthesia, pre-existing deficit, seizure, tingling, tremors, weakness, other Endocrine: Denies: excessive sweating, flushing, intolerance to cold, intolerance to heat, increased hunger, increased thirst MSK: denies joint pains, swelling, stiffness Hematologic/Lymphatic: Denies: anemia, easy bleeding, easy bruising, Objective Last 24 Hour Vital Signs Date Time Temp Pulse Resp B/P (MAP) Pulse Ox O2 Delivery O2 Flow Rate FiO2 05/12/20 16:00 98.1 76 19 127/81 (96) 98 05/12/20 12:00 98.4 70 18 121/83 (96) 98 05/12/20 09:00 Venturi Mask 14.0 05/12/20 08:52 69 126/79 05/12/20 08:00 97.3 69 19 126/79 (95) 96 05/12/20 04:00 97.7 62 36 105/58 (74) 93 05/12/20 00:00 97.9 59 32 148/98 (115) 92 05/11/20 21:00 Venturi Mask 14.0 05/11/20 20:00 97.9 61 32 100/63 (75) 99 Intake and Output 05/11/20 05/12/20 19:00 07:00 Intake Total 800 ml 400 ml Balance 800 ml 400 ml Intake Oral 800 ml 400 ml # Voids 3 4 # Bowel Movements 1 3 Laboratory Tests 05/11/20 21:18: POC Whole Blood Glucose 149H 05/12/20 06:30: POC Whole Blood Glucose 130H 05/12/20 08:35: White Blood Count 13.4H, Red Blood Count 4.09L, Hemoglobin 12.0, Hematocrit 33.7L, Mean Corpuscular Volume 82, Mean Corpuscular Hemoglobin 29.2, Mean Corpuscular Hemoglobin Concent 35.5, Red Cell Distribution Width 14.5, Platelet Count 338, Mean Platelet Volume 6.1L, Neutrophils (%) (Auto) 83.7H, Lymphocytes (%) (Auto) 10.9L, Monocytes (%) (Auto) 4.6, Eosinophils (%) (Auto) 0.0, Basophils (%) (Auto) 0.7, Sodium Level 136, Potassium Level 3.9, Chloride Level 101, Carbon Dioxide Level 28, Anion Gap 8, Blood Urea Nitrogen 17, Creatinine 0.7, Estimat Glomerular Filtration Rate > 60, Glucose Level 148H, Calcium Level 8.5, Phosphorus Level 3.3, Magnesium Level 2.1, Pro-B-Type Natriuretic Peptide [Pending] 05/12/20 12:11: POC Whole Blood Glucose 138H 05/12/20 17:08: POC Whole Blood Glucose [Pending] Height (Feet): 5 Height (Inches): 3.00 Weight (Pounds): 175 Objective General: WDWN female in NAD, A&O x 4. ON venturi mask. Stable HEENT: Normocephalic cephalic atraumatic, pupils equal round reactive to light and accommodation, nares patent and no symmetrical, no tonsillar exudates, mucous membranes moist CV: Regular rate regular rhythm, no murmurs, rubs, or gallops Pulm: Lungs clear to auscultation bilaterally. No wheezes, rhonchi, or rales GI: Soft, nontender, nondistended, bowel sounds present Neuro: CN 2-12 intact bilaterally, no focal signs. Ext: No lower extremity edema bilaterally Skin: no rashes lesions or ulcers Msk: Joints symmetrical in upper extremity and lower extremity bilaterally, no joint swelling. Lymph: No lymphadenopathy in upper extremity and lower extremity Assessment/Plan Assessment/Plan: #COVID19 PNA #Sepsis due to COVID #Superimposed bacterial pneumonia, CAP #Elevated inflammatory markers #Acute hypoxic respiratory failure due to COVID - Admit to COVID19 floor - Apply supplemental oxygenation as needed - decadron 6mg IV for 10days (05/09 - ) - Remdesivir per ID (05/12 - ) - Continue levaquin 750mg IV daily for 5 days (05/09 - ) - Monitor inflammatory markers - ID consulted: Dr. Mi - Pulm consulted: Dr. Lindsay #DMT2 - SSI - Accuchecks - Hypoglycemia protocol #HTN - Start back on home medication Norvasc 10mg daily 36 minutes spent on this encounter, and 22 minutes spent on counseling and care coordination. Discussed with ID and PUlm. Time of note may not reflect time patient was seen. Louis Davis D.O. May 12, 2020 18:29
--- NOTE | 2020-05-12 18:31 | General Progress Note ---
Advance Care Planning Advance Care Planning Advance Care Planning [facility] An independent Hospitalist group, where every patient is our [facility] Internal Medicine Hospitalist Advanced Care Planning Note Please contact us at Date of Discussion: A [id number] discussion with the patient regarding the patient's advanced care planning took place during this hospitalization on the above date. The discussion included the explanation and discussion of advance directives and associated forms/documents, as well as the patient's current code status. We also discussed at length the patient's medical conditions (both acute and chroni c), general prognosis, treatment options, and goals of care. The following summarizes the discussion: Advance Care Planning/Goals of Care: - Will attempt to fill out an AD and/or POLST with the patient prior to discharge, if not already completed - Continue current evaluation and management of any acute and chronic medical issues - Will continue to support the patient/family - Will continue to discuss both short- and long-term goals of care DPOA-HC/Surrogate Decision Maker: None currently appointed Code Status: Full Code. Does not want intermediate ventilation however. Advanced Care Planning Forms/Documents Completed: Deferred until later encounter/visit A total of 17 minutes was spent on this discussion, including counseling, answering questions, and completing, if any, pertinent advanced care planning forms/documents. Time of note may not reflect time of encounter. Louis Davis D.O. May 12, 2020 18:31
[2020-05-12 20:00] VITALS: BP 116/63
[2020-05-12] MEDS: Zolpidem 5mg tab ORAL SCH (21:00)
[2020-05-12] MEDS: guaiFENesin /DM 10ml syrup ORAL PRN (23:59)
[2020-05-13] VITALS: BP 116/71
[2020-05-13] MEDS: Vancomycin 1 GM in NS 275 ML IVPB SCH ×2 (02:21→13:42)
[2020-05-13 04:00] VITALS: BP 119/76
[2020-05-13] MEDS: NovoLOG Insulin Flexpen SUBQ SCH ×4 (06:19→21:44)
[2020-05-13 07:03] LABS: BASOPHILS % (AUTO) 0.6 % (0.0-2.0); HEMATOCRIT 34.7 % (37.0-47.0); HEMOGLOBIN 12.1 G/DL (12.0-16.0); LYMPHOCYTES % (AUTO) 19.7 % (20.0-45.0); MEAN CORPUSCULAR VOLUME 84 FL (80-99); MONOCYTES % (AUTO) 8.3 % (1.0-10.0); NEUTROPHILS % (AUTO) 71.4 % (45.0-75.0); PLATELET COUNT 400 K/UL (150-450); RED BLOOD COUNT 4.13 M/UL (4.20-5.40); RED CELL DISTRIBUTION WIDTH 12.8 % (11.6-14.8); WHITE BLOOD COUNT 9.6 K/UL (4.8-10.8)
[2020-05-13 07:19] LABS: ALANINE AMINOTRANSFERASE 29 U/L (12-78); ALBUMIN 2.6 G/DL (3.4-5.0); ALBUMIN/GLOBULIN RATIO 0.6 (1.0-2.7); ALKALINE PHOSPHATASE 49 U/L (46-116); ANION GAP 4 mmol/L (5-15); ASPARTATE AMINO TRANSFERASE 27 U/L (15-37); BILIRUBIN,TOTAL 0.3 MG/DL (0.2-1.0); BLOOD UREA NITROGEN 20 mg/dL (7-18); CALCIUM 8.5 MG/DL (8.5-10.1); CARBON DIOXIDE 29 MMOL/L (21-32); CHLORIDE 104 MMOL/L (98-107); CREATININE 0.7 MG/DL (0.55-1.30); POTASSIUM 4.6 MMOL/L (3.5-5.1); SODIUM 137 MMOL/L (136-145)
[2020-05-13 07:35] LABS: PHOSPHORUS 3.6 MG/DL (2.5-4.9)
[2020-05-13 08:00] VITALS: BP 110/67
[2020-05-13] MEDS: Docusate 100mg cap ORAL SCH ×3 (09:00→21:00)
[2020-05-13] MEDS: dexAMETHasone 10mg/ml Inj IV SCH (09:16)
[2020-05-13] MEDS: Enoxaparin 40mg Inj SUBQ SCH (09:17)
[2020-05-13 12:00] VITALS: BP 121/71
--- NOTE | 2020-05-13 13:55 | Cardiac Electrophysiology PN ---
Subjective Subjective [id number] Objective Last 24 Hour Vital Signs Date Time Temp Pulse Resp B/P (MAP) Pulse Ox O2 Delivery O2 Flow Rate FiO2 05/13/20 12:00 97.9 60 20 121/71 (88) 100 05/13/20 09:00 66 110/67 05/13/20 09:00 Non-Rebreather 15.0 05/13/20 08:00 54 05/13/20 08:00 97.7 66 20 110/67 (81) 97 05/13/20 04:00 97.7 56 20 119/76 (90) 99 05/13/20 04:00 52 05/13/20 00:00 58 05/13/20 00:00 97.7 60 18 116/71 (86) 99 05/12/20 21:00 Non-Rebreather 15.0 05/12/20 20:00 97.5 60 19 116/63 (80) 99 05/12/20 19:58 95 Non-Rebreather 15.0 100 05/12/20 16:00 98.1 76 19 127/81 (96) 98 Intake and Output 05/12/20 05/13/20 19:00 07:00 Intake Total 1000 ml 120 ml Balance 1000 ml 120 ml Intake Oral 120 ml Other 1000 ml # Bowel Movements 1 Laboratory Tests Test 05/12/20 17:08 05/12/20 20:11 05/13/20 05:45 05/13/20 12:03 POC Whole Blood Glucose Pending 201 MG/DL (74-106) H White Blood Count 9.6 K/UL (4.8-10.8) Red Blood Count 4.13 M/UL (4.20-5.40) L Hemoglobin 12.1 G/DL (12.0-16.0) Hematocrit 34.7 % (37.0-47.0) L Mean Corpuscular Volume 84 FL (80-99) Mean Corpuscular Hemoglobin 29.4 PG (27.0-31.0) Mean Corpuscular Hemoglobin Concent 35.0 G/DL (32.0-36.0) Red Cell Distribution Width 12.8 % (11.6-14.8) Platelet Count 400 K/UL (150-450) Mean Platelet Volume 6.0 FL (6.5-10.1) L Neutrophils (%) (Auto) 71.4 % (45.0-75.0) Lymphocytes (%) (Auto) 19.7 % (20.0-45.0) L Monocytes (%) (Auto) 8.3 % (1.0-10.0) Eosinophils (%) (Auto) 0.0 % (0.0-3.0) Basophils (%) (Auto) 0.6 % (0.0-2.0) Sodium Level 137 MMOL/L (136-145) Potassium Level 4.6 MMOL/L (3.5-5.1) Chloride Level 104 MMOL/L (98-107) Carbon Dioxide Level 29 MMOL/L (21-32) Anion Gap 4 mmol/L (5-15) L Blood Urea Nitrogen 20 mg/dL (7-18) H Creatinine 0.7 MG/DL (0.55-1.30) Estimat Glomerular Filtration Rate > 60 mL/min (>60) Glucose Level 120 MG/DL (74-106) H Calcium Level 8.5 MG/DL (8.5-10.1) Phosphorus Level 3.6 MG/DL (2.5-4.9) Magnesium Level 2.2 MG/DL (1.8-2.4) Total Bilirubin 0.3 MG/DL (0.2-1.0) Direct Bilirubin < 0.1 MG/DL (0.0-0.3) Aspartate Amino Transf (AST/SGOT) 27 U/L (15-37) Alanine Aminotransferase (ALT/SGPT) 29 U/L (12-78) Alkaline Phosphatase 49 U/L (46-116) Total Protein 6.8 G/DL (6.4-8.2) Albumin 2.6 G/DL (3.4-5.0) L Globulin 4.2 g/dL Albumin/Globulin Ratio 0.6 (1.0-2.7) L Arterial Blood pH 7.416 (7.350-7.450) Arterial Blood Partial Pressure CO2 39.9 mmHg (35.0-45.0) Arterial Blood Partial Pressure O2 212.4 mmHg (75.0-100.0) H Arterial Blood HCO3 25.1 mmol/L (22.0-26.0) Arterial Blood Oxygen Saturation 98.8 % (95-100) Arterial Blood Base Excess 0.6 (-2-2) Juice Test Positive Toluie,Mike MD May 13, 2020 13:55
--- NOTE | 2020-05-13 15:45 | Consultation ---
DATE OF CONSULTATION: 05/13/2020 CARDIOLOGY CONSULTATION CONSULTING PHYSICIAN: Mike Easton MD REFERRING PHYSICIAN: Wendi Rehman MD REASON FOR CONSULTATION: Tachycardia, shortness of breath in a COVID patient. HISTORY OF PRESENT ILLNESS: Patient is a 60-year-old lady with history of hypertension, diabetes who was brought to the emergency room for increasing shortness of breath. On 05/04/2020 was confirmed for COVID-19 pneumonia. Patient was discharged home with stable vital signs. Patient came back for hypoxia based on pulse ox at home with saturation in the low 80s. Patient's chest x-ray showed worsening airspace disease as well as inflammatory markers. Patient was admitted after received steroids and a Cardiology consultation was obtained for further evaluation. REVIEW OF SYSTEMS: Negative other than what was mentioned in the history of present illness. PAST MEDICAL HISTORY: As mentioned above. FAMILY HISTORY: Noncontributory. ALLERGIES: She is allergic to penicillin. MEDICATIONS: Include amlodipine, aspirin, and metformin at home. PHYSICAL EXAMINATION: VITAL SIGNS: Show blood pressure of 110/70, pulse 60, respirations 18, temperature 98. HEAD AND NECK: Showed no JVD. LUNGS: Coarse rhonchi. CARDIOVASCULAR: Shows regular S1 and S2 with no gallop. ABDOMEN: Soft. EXTREMITIES: No pitting edema. LABORATORY AND DIAGNOSTIC DATA: Labs show white count of 9.3, hemoglobin 12.1, hematocrit 34.7, and platelet count is 400. Sodium 137, potassium 4.6, BUN of 20, creatinine 0.7. Initial troponin was negative. ASSESSMENT AND PLAN: 1. Hypertension and bradycardia. The blood pressure is currently stable. Patient received 1 dose of Lasix and was then subsequently discontinued. I will add p.r.n. clonidine. Patient already on amlodipine 10 mg daily. 2. Bradycardia. Patient is off of any sinus or AV kathi blocking agents, maybe due to COVID. 3. COVID pneumonia, on dexamethasone and vancomycin. 4. Diabetes, on insulin. Thank you very much for allowing me to participate in the care of this patient. Please do not hesitate to contact me for any questions regarding my evaluation. Mike Easton M.D. DR: DYLON JOB#: [id number] CC:
[2020-05-13 16:00] VITALS: BP 112/70
[2020-05-13] MEDS: Maintenance Dose:Remdesivir 100mg/NS 230ml x 4 Doses IV SCH ×2 (16:31)
--- NOTE | 2020-05-13 17:25 | Pulmonology Progress Note ---
Subjective ROS Limited/Unobtainable: No Interval Events: now on 15L NRB Constitutional: Reports: other - NRB 15L; Denies: fever HEENT: Repors: no symptoms Respiratory: Reports: no symptoms; Denies: shortness of breath, dyspnea at rest Cardiovascular: Reports: no symptoms Gastrointestinal/Abdominal: Denies: nausea, vomiting, diarrhea Genitourinary: Reports: no symptoms Psychiatric: Denies: depression Skin: Denies: rash Allergies: Coded Allergies: PENICILLIN G (Verified Allergy, Mild, RESPIRATORY DISTRESS, 09/16/09) Objective Last 24 Hour Vital Signs Date Time Temp Pulse Resp B/P (MAP) Pulse Ox O2 Delivery O2 Flow Rate FiO2 05/13/20 16:00 97.7 56 24 112/70 (84) 95 05/13/20 12:30 97 Venturi Mask 14.0 55 05/13/20 12:00 97.9 60 20 121/71 (88) 100 05/13/20 12:00 62 05/13/20 09:00 66 110/67 05/13/20 09:00 Non-Rebreather 15.0 05/13/20 08:00 54 05/13/20 08:00 97.7 66 20 110/67 (81) 97 05/13/20 04:00 97.7 56 20 119/76 (90) 99 05/13/20 04:00 52 05/13/20 00:00 58 05/13/20 00:00 97.7 60 18 116/71 (86) 99 05/12/20 21:00 Non-Rebreather 15.0 05/12/20 20:00 97.5 60 19 116/63 (80) 99 05/12/20 19:58 95 Non-Rebreather 15.0 100 Intake and Output 05/12/20 05/13/20 19:00 07:00 Intake Total 1000 ml 120 ml Balance 1000 ml 120 ml Intake Oral 120 ml Other 1000 ml # Bowel Movements 1 Objective 05/13 pt saturating 94-95% on 15L NRB 05/12/2020 pt in bed saturating well on Venturi mask 14L 05/11/2020 pt in bed; saturating well on low flow oxygen NC General Appearance: WD/WN, no acute distress HEENT: normocephalic Respiratory: chest wall non-tender, crackles/rales - mild Cardiovascular: normal peripheral pulses, normal rate, no gallop/murmur Abdomen: soft, non tender Laboratory Tests 05/12/20 20:11: POC Whole Blood Glucose 201H 05/13/20 05:45: White Blood Count 9.6, Red Blood Count 4.13L, Hemoglobin 12.1, Hematocrit 34.7L, Mean Corpuscular Volume 84, Mean Corpuscular Hemoglobin 29.4, Mean Corpuscular Hemoglobin Concent 35.0, Red Cell Distribution Width 12.8, Platelet Count 400, Mean Platelet Volume 6.0L, Neutrophils (%) (Auto) 71.4, Lymphocytes (%) (Auto) 19.7L, Monocytes (%) (Auto) 8.3, Eosinophils (%) (Auto) 0.0, Basophils (%) (Auto) 0.6, Sodium Level 137, Potassium Level 4.6, Chloride Level 104, Carbon Dioxide Level 29, Anion Gap 4L, Blood Urea Nitrogen 20H, Creatinine 0.7, Estimat Glomerular Filtration Rate > 60, Glucose Level 120H, Calcium Level 8.5, Phosphorus Level 3.6, Magnesium Level 2.2, Total Bilirubin 0.3, Direct Bilirubin < 0.1, Aspartate Amino Transf (AST/SGOT) 27, Alanine Aminotransferase (ALT/SGPT) 29, Alkaline Phosphatase 49, Total Protein 6.8, Albumin 2.6L, Globulin 4.2, Alb umin/Globulin Ratio 0.6L 05/13/20 12:03: Arterial Blood pH 7.416, Arterial Blood Partial Pressure CO2 39.9, Arterial Blood Partial Pressure O2 212.4H, Arterial Blood HCO3 25.1, Arterial Blood Oxygen Saturation 98.8, Arterial Blood Base Excess 0.6, Juice Test Positive 05/13/20 16:23: POC Whole Blood Glucose 226H Current Medications Medications (Trade) Dose Ordered Sig/Darcie Route PRN Reason Start Time Stop Time Status Last Admin Dose Admin Acetaminophen (Tylenol) 650 mg Q4H PRN ORAL FEVER 05/09/20 03:45 06/08/20 03:44 Albuterol Sulfate (Proventil MDI) 2 puff Q4H PRN INH Shortness of Breath 05/10/20 21:30 08/08/20 21:29 Amlodipine Besylate (Norvasc) 10 mg DAILY ORAL 05/09/20 09:00 06/08/20 08:59 05/09/20 08:56 Dexamethasone Sodium Phosphate (Decadron 10mg/ ml Inj) 6 mg DAILY IV 05/10/20 09:00 05/19/20 08:59 05/13/20 09:16 Dextrose (Dextrose 50%) 25 ml Q30M PRN IV Hypoglycemia 05/09/20 04:00 08/07/20 03:59 Dextrose (Dextrose 50%) 50 ml Q30M PRN IV Hypoglycemia 05/09/20 04:00 08/07/20 03:59 Docusate Sodium (Colace) 100 mg EVERY 12 HOURS ORAL 05/09/20 09:00 06/08/20 08:59 05/11/20 08:39 Enoxaparin Sodium (Lovenox) 40 mg Q24H SUBQ 05/10/20 09:00 08/08/20 08:59 05/13/20 09:17 Famotidine (Pepcid) 20 mg DAILY ORAL 05/11/20 21:15 08/09/20 21:14 05/13/20 09:16 Guaifenesin/ Dextromethorphan (Robitussin DM Syrup) 10 ml Q4H PRN ORAL For Cough 05/10/20 03:30 08/08/20 03:29 05/12/20 23:59 Insulin Aspart (NovoLOG) BEFORE MEALS AND HS SUBQ 05/09/20 06:30 08/07/20 06:29 05/13/20 16:30 Iohexol (Omnipaque 350 100ml) 100 ml NOW PRN INJ Radiology Procedure 05/12/20 11:45 05/14/20 11:44 Levofloxacin 150 ml @ 100 mls/hr Q24H IVPB 05/12/20 16:00 05/17/20 16:00 05/13/20 15:29 Magnesium Hydroxide (Mom) 30 ml HSPRN PRN ORAL Constipation 05/09/20 03:45 06/08/20 03:44 Pantoprazole (Protonix) 40 mg ACBREAKFAST ORAL 05/09/20 06:30 06/08/20 06:29 05/13/20 06:20 Remdesivir 100 mg/ Sodium Chloride 250 ml @ 250 mls/hr Q24H IV 05/13/20 16:00 05/16/20 16:59 05/13/20 16:31 Vancomycin HCl (Vanco pharmacy to dose) 1 ea DAILY PRN MISC Per rx protocol 05/12/20 11:45 06/11/20 11:44 Vancomycin HCl 1 gm/Sodium Chloride 275 ml @ 183.708 mls/hr Q12HR@0200,1400 IVPB 05/12/20 14:00 05/17/20 13:59 05/13/20 13:42 Zolpidem Tartrate (Ambien) 5 mg HSPRN ORAL 05/11/20 21:15 05/18/20 21:14 05/12/20 21:00 Assessment/Plan Assessment/Plan 1. COVID-19 pneumonia. - on decadron - on remdesivir per ID - CXR 05/12 shows worsening right, new left infiltrates likely focal pneumonia - lasix added - On Levaquin and IV Vanco as well 2. Elevated inflammatory markers 3. History of hypertension. - on amlodipine - on clonidine prn 4. Diabetes mellitus. 5. Respiratory distress. - cont supplemental oxygen - currently saturating at 94-95% on 15L NRB mask 6. Leukocytosis; improved DVT ppx We will follow carefully. The care for this patient was discussed with my supervising physician. Time spent for this case was approximately 31 minutes. Alejandro Mckenna May 13, 2020 17:25
--- NOTE | 2020-05-13 17:47 | Infectious Diseases Prog Note ---
Assessment/Plan Assessment/Plan A) 1) covid-19 with pna, ? cap, hypoxia, on venturi mask 2) DM, HTN 3) sh-neg, FH-nc, mar noted 4) allergies - pcn 5) d/w RN 6) notes and records noted P) 1) dexamethasone, remdesivir, levofloxacin, vancomycin 2) monitor respiratory status 3) monitor labs and chest x-ray 4) d/w primary team 5) will f/u Subjective Constitutional: Reports: fatigue; Denies: fever HEENT: Denies: congestion Respiratory: Denies: shortness of breath Cardiovascular: Denies: chest pain Gastrointestinal/Abdominal: Denies: nausea, vomiting, diarrhea Genitourinary: Reports: other - no ayoub Neurologic: Denies: headache Psychiatric: Reports: other - NA Skin: Denies: rash Hematologic: Denies: bleeding Musculoskeletal: Denies: pain Allergies: Coded Allergies: PENICILLIN G (Verified Allergy, Mild, RESPIRATORY DISTRESS, 09/16/09) Objective Last 24 Hour Vital Signs Date Time Temp Pulse Resp B/P (MAP) Pulse Ox O2 Delivery O2 Flow Rate FiO2 05/13/20 16:00 97.7 56 24 112/70 (84) 95 05/13/20 12:30 97 Venturi Mask 14.0 55 05/13/20 12:00 97.9 60 20 121/71 (88) 100 05/13/20 12:00 62 05/13/20 09:00 66 110/67 05/13/20 09:00 Non-Rebreather 15.0 05/13/20 08:00 54 05/13/20 08:00 97.7 66 20 110/67 (81) 97 05/13/20 04:00 97.7 56 20 119/76 (90) 99 05/13/20 04:00 52 05/13/20 00:00 58 05/13/20 00:00 97.7 60 18 116/71 (86) 99 05/12/20 21:00 Non-Rebreather 15.0 05/12/20 20:00 97.5 60 19 116/63 (80) 99 05/12/20 19:58 95 Non-Rebreather 15.0 100 Height (Feet): 5 Height (Inches): 3.00 Weight (Pounds): 175 General Appearance: no acute distress HEENT: normocephalic, atraumatic, anicteric, mucous membranes moist Respiratory/Chest: crackles/rales, rhonchi - bilaterally, other - some sob noted Cardiovascular: normal rate, regular rhythm, no gallop/murmur Abdomen: normal bowel sounds, soft, non tender, no organomegaly, non distended Genitourinary: other - no ayoub Extremities: no cyanosis Skin: no rash Neurologic/Psychiatric: pickle solution maker II-XII grossly normal, alert, oriented x 3, responsive Lymphatic: no neck adenopathy Musculoskeletal: no effusion CT chest - 05/12/20 - Impression: Negative for evidence of acute pulmonary embolus Extensive bilateral infiltrates, likely multifocal pneumonia and quite likely viral Mild cardiomegaly Fatty liver, also previously reported Microbiology Date/Time Source Procedure Growth Status 05/08/20 23:19 Blood Blood Culture - Preliminary NO GROWTH AFTER 4 DAYS Resulted Microbiology Date/Time Source Procedure Growth Status 05/08/20 23:19 Blood Blood Culture - Preliminary NO GROWTH AFTER 4 DAYS Resulted Laboratory Tests Test 05/12/20 20:11 05/13/20 05:45 05/13/20 12:03 05/13/20 16:23 POC Whole Blood Glucose 201 MG/DL (74-106) H 226 MG/DL (74-106) H White Blood Count 9.6 K/UL (4.8-10.8) Red Blood Count 4.13 M/UL (4.20-5.40) L Hemoglobin 12.1 G/DL (12.0-16.0) Hematocrit 34.7 % (37.0-47.0) L Mean Corpuscular Volume 84 FL (80-99) Mean Corpuscular Hemoglobin 29.4 PG (27.0-31.0) Mean Corpuscular Hemoglobin Concent 35.0 G/DL (32.0-36.0) Red Cell Distribution Width 12.8 % (11.6-14.8) Platelet Count 400 K/UL (150-450) Mean Platelet Volume 6.0 FL (6.5-10.1) L Neutrophils (%) (Auto) 71.4 % (45.0-75.0) Lymphocytes (%) (Auto) 19.7 % (20.0-45.0) L Monocytes (%) (Auto) 8.3 % (1.0-10.0) Eosinophils (%) (Auto) 0.0 % (0.0-3.0) Basophils (%) (Auto) 0.6 % (0.0-2.0) Sodium Level 137 MMOL/L (136-145) Potassium Level 4.6 MMOL/L (3.5-5.1) Chloride Level 104 MMOL/L (98-107) Carbon Dioxide Level 29 MMOL/L (21-32) Anion Gap 4 mmol/L (5-15) L Blood Urea Nitrogen 20 mg/dL (7-18) H Creatinine 0.7 MG/DL (0.55-1.30) Estimat Glomerular Filtration Rate > 60 mL/min (>60) Glucose Level 120 MG/DL (74-106) H Calcium Level 8.5 MG/DL (8.5-10.1) Phosphorus Level 3.6 MG/DL (2.5-4.9) Magnesium Level 2.2 MG/DL (1.8-2.4) Total Bilirubin 0.3 MG/DL (0.2-1.0) Direct Bilirubin < 0.1 MG/DL (0.0-0.3) Aspartate Amino Transf (AST/SGOT) 27 U/L (15-37) Alanine Aminotransferase (ALT/SGPT) 29 U/L (12-78) Alkaline Phosphatase 49 U/L (46-116) Total Protein 6.8 G/DL (6.4-8.2) Albumin 2.6 G/DL (3.4-5.0) L Globulin 4.2 g/dL Albumin/Globulin Ratio 0.6 (1.0-2.7) L Arterial Blood pH 7.416 (7.350-7.450) Arterial Blood Partial Pressure CO2 39.9 mmHg (35.0-45.0) Arterial Blood Partial Pressure O2 212.4 mmHg (75.0-100.0) H Arterial Blood HCO3 25.1 mmol/L (22.0-26.0) Arterial Blood Oxygen Saturation 98.8 % (95-100) Arterial Blood Base Excess 0.6 (-2-2) Juice Test Positive Current Medications Medications (Trade) Dose Ordered Sig/Darcie Route PRN Reason Start Time Stop Time Status Last Admin Dose Admin Acetaminophen (Tylenol) 650 mg Q4H PRN ORAL FEVER 05/09/20 03:45 06/08/20 03:44 Albuterol Sulfate (Proventil MDI) 2 puff Q4H PRN INH Shortness of Breath 05/10/20 21:30 08/08/20 21:29 Amlodipine Besylate (Norvasc) 10 mg DAILY ORAL 05/09/20 09:00 06/08/20 08:59 05/09/20 08:56 Dexamethasone Sodium Phosphate (Decadron 10mg/ ml Inj) 6 mg DAILY IV 05/10/20 09:00 05/19/20 08:59 05/13/20 09:16 Dextrose (Dextrose 50%) 25 ml Q30M PRN IV Hypoglycemia 05/09/20 04:00 08/07/20 03:59 Dextrose (Dextrose 50%) 50 ml Q30M PRN IV Hypoglycemia 05/09/20 04:00 08/07/20 03:59 Docusate Sodium (Colace) 100 mg EVERY 12 HOURS ORAL 05/09/20 09:00 06/08/20 08:59 05/11/20 08:39 Enoxaparin Sodium (Lovenox) 40 mg Q24H SUBQ 05/10/20 09:00 08/08/20 08:59 05/13/20 09:17 Famotidine (Pepcid) 20 mg DAILY ORAL 05/11/20 21:15 08/09/20 21:14 05/13/20 09:16 Guaifenesin/ Dextromethorphan (Robitussin DM Syrup) 10 ml Q4H PRN ORAL For Cough 05/10/20 03:30 08/08/20 03:29 05/12/20 23:59 Insulin Aspart (NovoLOG) BEFORE MEALS AND HS SUBQ 05/09/20 06:30 08/07/20 06:29 05/13/20 16:30 Iohexol (Omnipaque 350 100ml) 100 ml NOW PRN INJ Radiology Procedure 05/12/20 11:45 05/14/20 11:44 Levofloxacin 150 ml @ 100 mls/hr Q24H IVPB 05/12/20 16:00 05/17/20 16:00 05/13/20 15:29 Magnesium Hydroxide (Mom) 30 ml HSPRN PRN ORAL Constipation 05/09/20 03:45 06/08/20 03:44 Pantoprazole (Protonix) 40 mg ACBREAKFAST ORAL 05/09/20 06:30 06/08/20 06:29 05/13/20 06:20 Remdesivir 100 mg/ Sodium Chloride 250 ml @ 250 mls/hr Q24H IV 05/13/20 16:00 05/16/20 16:59 05/13/20 16:31 Vancomycin HCl (Vanco pharmacy to dose) 1 ea DAILY PRN MISC Per rx protocol 05/12/20 11:45 06/11/20 11:44 Vancomycin HCl 1 gm/Sodium Chloride 275 ml @ 183.708 mls/hr Q12HR@0200,1400 IVPB 05/12/20 14:00 05/17/20 13:59 05/13/20 13:42 Zolpidem Tartrate (Ambien) 5 mg HSPRN ORAL 05/11/20 21:15 05/18/20 21:14 05/12/20 21:00 Vicente Yang MD May 13, 2020 17:47
--- NOTE | 2020-05-13 18:46 | General Progress Note ---
Subjective Allergies: Coded Allergies: PENICILLIN G (Verified Allergy, Mild, RESPIRATORY DISTRESS, 09/16/09) Subjective NO acute events overnight per nursing. Patient worsened overnight. On NRB now. Still SOB and with intermittent cough. No fever, or chest pain. No nausea or vomiting. Has major difficulty breathing with movement. Review of systems: Constitutional: Denies: chills, diaphoresis, fever, malaise, weakness, HEENT: Denies: eye pain, blurred vision, double vision, ear pain, nose pain, throat pain, Cardiovascular: Denies: chest pain, edema, lightheadedness, palpitations Respiratory: Denies: cough, orthopnea, shortness of breath, SOB with excertion, SOB at rest, Gastrointestinal/Abdominal: Denies: abdominal pain, black stools, blood in stool, constipation, diarrhea, nausea, poor fluid intake vomiting, other Genitourinary: Denies: burning, discharge, frequency, Neurologic/Psychiatric: Denies: headache, numbness, paresthesia, new weakness, other Endocrine: Denies: excessive sweating, flushing, intolerance to cold, MSK: denies joint pains, swelling, stiffness Hematologic/Lymphatic: Denies: anemia, easy bleeding, easy bruising, Objective Last 24 Hour Vital Signs Date Time Temp Pulse Resp B/P (MAP) Pulse Ox O2 Delivery O2 Flow Rate FiO2 05/13/20 16:00 97.7 56 24 112/70 (84) 95 05/13/20 12:30 97 Venturi Mask 14.0 55 05/13/20 12:00 97.9 60 20 121/71 (88) 100 05/13/20 12:00 62 05/13/20 09:00 66 110/67 05/13/20 09:00 Non-Rebreather 15.0 05/13/20 08:00 54 05/13/20 08:00 97.7 66 20 110/67 (81) 97 05/13/20 04:00 97.7 56 20 119/76 (90) 99 05/13/20 04:00 52 05/13/20 00:00 58 05/13/20 00:00 97.7 60 18 116/71 (86) 99 05/12/20 21:00 Non-Rebreather 15.0 05/12/20 20:00 97.5 60 19 116/63 (80) 99 05/12/20 19:58 95 Non-Rebreather 15.0 100 Intake and Output 05/12/20 05/13/20 18:59 06:59 Intake Total 1000 ml 120 ml Balance 1000 ml 120 ml Intake Oral 120 ml Other 1000 ml # Bowel Movements 1 Laboratory Tests 05/12/20 20:11: POC Whole Blood Glucose 201H 05/13/20 05:45: White Blood Count 9.6, Red Blood Count 4.13L, Hemoglobin 12.1, Hematocrit 34.7L, Mean Corpuscular Volume 84, Mean Corpuscular Hemoglobin 29.4, Mean Corpuscular Hemoglobin Concent 35.0, Red Cell Distribution Width 12.8, Platelet Count 400, Mean Platelet Volume 6.0L, Neutrophils (%) (Auto) 71.4, Lymphocytes (%) (Auto) 19.7L, Monocytes (%) (Auto) 8.3, Eosinophils (%) (Auto) 0.0, Basophils (%) (Auto) 0.6, Sodium Level 137, Potassium Level 4.6, Chloride Level 104, Carbon Dioxide Level 29, Anion Gap 4L, Blood Urea Nitrogen 20H, Creatinine 0.7, Estimat Glomerular Filtration Rate > 60, Glucose Level 120H, Calcium Level 8.5, Li sphorus Level 3.6, Magnesium Level 2.2, Total Bilirubin 0.3, Direct Bilirubin < 0.1, Aspartate Amino Transf (AST/SGOT) 27, Alanine Aminotransferase (ALT/SGPT) 29, Alkaline Phosphatase 49, Total Protein 6.8, Albumin 2.6L, Globulin 4.2, Albumin/Globulin Ratio 0.6L 05/13/20 12:03: Arterial Blood pH 7.416, Arterial Blood Partial Pressure CO2 39.9, Arterial Blood Partial Pressure O2 212.4H, Arterial Blood HCO3 25.1, Arterial Blood Oxygen Saturation 98.8, Arterial Blood Base Excess 0.6, Juice Test Positive 05/13/20 16:23: POC Whole Blood Glucose 226H Height (Feet): 5 Height (Inches): 3.00 Weight (Pounds): 175 Objective General: WDWN female in NAD, A&O x 4. On NRB now. Stable HEENT: Normocephalic cephalic atraumatic, pupils equal round reactive to light and accommodation, nares patent and no symmetrical, no tonsillar exudates, mucous membranes moist CV: Regular rate regular rhythm, no murmurs, rubs, or gallops Pulm: Lungs coarse breath sounds bilaterally. No wheezes, rhonchi, or rales GI: Soft, nontender, nondistended, bowel sounds present Neuro: CN 2-12 intact bilaterally, no focal signs. Ext: No lower extremity edema bilaterally Skin: no rashes lesions or ulcers Msk: Joints symmetrical in upper extremity and lower extremity bilaterally, no j oint swelling. Lymph: No lymphadenopathy in upper extremity and lower extremity Assessment/Plan Assessment/Plan: #COVID19 PNA #Sepsis due to COVID #Superimposed bacterial pneumonia CAP vs. HAP #Elevated inflammatory markers #elevated d-dimer: negative duplex and CT angio for PE #Acute hypoxic respiratory failure due to COVID - Admit to [facility] floor - Apply supplemental oxygenation as needed - decadron 6mg IV for 10days (05/09 - ) - Remdesivir per ID (05/12 - ) - Continue levaquin 750mg IV daily (05/09 - ) - Vanc per pharmacy (05/12 - ) - Abx per ID - follow cultures: NGTD - CT angio 05/12: neg for PE. Worsening infiltrates - ID consulted: Dr. Mi - Pulm consulted: Dr. Lindsay - RADHA reviewed - wean O2 #DMT2 - SSI - Accuchecks - Hypoglycemia protocol #HTN - Norvasc 10mg daily FENPPX DVTPPX: Lovenox Diet: Diabetic PT/OT: pending improvement Code status: Full Dispo: home vs. rehab Reason for Continued Hospitalization: hypoxia 38 minutes spent on this encounter, and 20 minutes spent on counseling and care coordination. Discussed with ID and PUlm. Time of note may not reflect time patient was seen. Louis Davis D.O. May 13, 2020 18:46
[2020-05-13 20:00] VITALS: BP 116/71
[2020-05-13] MEDS: Zolpidem 5mg tab ORAL SCH (22:24)
[2020-05-14] VITALS: BP 132/82
[2020-05-14] MEDS: Vancomycin 1 GM in NS 275 ML IVPB SCH ×3 (01:59→17:58)
[2020-05-14 04:00] VITALS: BP 118/81
[2020-05-14 05:10] LABS: ALANINE AMINOTRANSFERASE 29 U/L (12-78); ALBUMIN 2.6 G/DL (3.4-5.0); ALBUMIN/GLOBULIN RATIO 0.6 (1.0-2.7); ALKALINE PHOSPHATASE 44 U/L (46-116); ANION GAP 4 mmol/L (5-15); ASPARTATE AMINO TRANSFERASE 22 U/L (15-37); BILIRUBIN,DIRECT < 0.1 MG/DL (0.0-0.3); BILIRUBIN,TOTAL 0.3 MG/DL (0.2-1.0); BLOOD UREA NITROGEN 18 mg/dL (7-18); CALCIUM 8.3 MG/DL (8.5-10.1); CARBON DIOXIDE 29 MMOL/L (21-32); CHLORIDE 103 MMOL/L (98-107); CREATININE 0.7 MG/DL (0.55-1.30); POTASSIUM 3.9 MMOL/L (3.5-5.1); SODIUM 136 MMOL/L (136-145)
[2020-05-14 05:16] LABS: PHOSPHORUS 3.3 MG/DL (2.5-4.9)
[2020-05-14 05:24] LABS: HEMATOCRIT 34.7 % (37.0-47.0); HEMOGLOBIN 12.3 G/DL (12.0-16.0); MEAN CORPUSCULAR VOLUME 82 FL (80-99); MONOCYTES % (AUTO) 10.6 % (1.0-10.0); NEUTROPHILS % (AUTO) 70.6 % (45.0-75.0); PLATELET COUNT 434 K/UL (150-450); RED BLOOD COUNT 4.22 M/UL (4.20-5.40); WHITE BLOOD COUNT 8.1 K/UL (4.8-10.8)
[2020-05-14 05:25] LABS: BASOPHILS % (AUTO) 0.7 % (0.0-2.0); EOSINOPHILS % (AUTO) 0.1 % (0.0-3.0)
[2020-05-14] MEDS: NovoLOG Insulin Flexpen SUBQ SCH ×4 (06:30→20:29)
[2020-05-14 08:00] VITALS: BP 113/77
[2020-05-14] MEDS: Docusate 100mg cap ORAL SCH ×2 (09:01→20:20)
[2020-05-14] MEDS: dexAMETHasone 10mg/ml Inj IV SCH (09:01)
[2020-05-14] MEDS: Enoxaparin 40mg Inj SUBQ SCH (09:03)
[2020-05-14] MEDS ORDERED: Tubing IV Secondary IV ONE (09:50)
[2020-05-14 12:00] VITALS: BP 106/65
--- NOTE | 2020-05-14 13:23 | Pulmonology Progress Note ---
Subjective ROS Limited/Unobtainable: No Interval Events: saturating well on 55% FiO2 Venturi mask at rest; hypoximic when off oxygen Constitutional: Reports: fatigue; Denies: fever HEENT: Repors: no symptoms Respiratory: Reports: no symptoms; Denies: shortness of breath, dyspnea at rest Cardiovascular: Reports: no symptoms Gastrointestinal/Abdominal: Denies: nausea, vomiting, diarrhea Genitourinary: Reports: no symptoms Psychiatric: Reports: other - NA Skin: Denies: rash Musculoskeletal: Denies: pain Allergies: Coded Allergies: PENICILLIN G (Verified Allergy, Mild, RESPIRATORY DISTRESS, 09/16/09) Objective Last 24 Hour Vital Signs Date Time Temp Pulse Resp B/P (MAP) Pulse Ox O2 Delivery O2 Flow Rate FiO2 05/14/20 12:00 96.3 63 18 106/65 (79) 94 05/14/20 09:00 57 113/77 05/14/20 09:00 Venturi Mask 15.0 05/14/20 08:00 98.0 57 20 113/77 (89) 97 05/14/20 08:00 63 05/14/20 04:00 51 05/14/20 04:00 97.6 60 23 118/81 (93) 96 05/14/20 00:00 50 05/14/20 00:00 97.7 55 22 132/82 (99) 95 05/13/20 21:00 Non-Rebreather 15.0 05/13/20 20:00 97.5 54 22 116/71 (86) 95 05/13/20 20:00 52 05/13/20 16:00 59 05/13/20 16:00 97.7 56 24 112/70 (84) 95 Intake and Output 05/13/20 05/14/20 19:00 07:00 Intake Total 600 ml 260 ml Balance 600 ml 260 ml Intake Oral 600 ml 260 ml # Voids 2 # Bowel Movements 1 Objective 05/13 pt saturating 94-95% on 15L NRB 05/12/2020 pt in bed saturating well on Venturi mask 14L 05/11/2020 pt in bed; saturating well on low flow oxygen NC General Appearance: WD/WN, no acute distress HEENT: normocephalic Respiratory: chest wall non-tender, crackles/rales - mild Cardiovascular: normal peripheral pulses, normal rate, no gallop/murmur Abdomen: soft, non tender Laboratory Tests 05/13/20 16:23: POC Whole Blood Glucose 226H 05/13/20 20:54: POC Whole Blood Glucose [Pending] 05/14/20 00:45: Vancomycin Level Trough 5.4 05/14/20 04:25: White Blood Count 8.1, Red Blood Count 4.22, Hemoglobin 12.3, Hematocrit 34.7L, Mean Corpuscular Volume 82, Mean Corpuscular Hemoglobin 29.1, Mean Corpuscular Hemoglobin Concent 35.3, Red Cell Distribution Width 13.0, Platelet Count 434, Mean Platelet Volume 6.1L, Neutrophils (%) (Auto) 70.6, Lymphocytes (%) (Auto) 18.0L, Monocytes (%) (Auto) 10.6H, Eosinophils (%) (Auto) 0.1, Basophils (%) (Auto) 0.7, Sodium Level 136, Potassium Level 3.9, Chloride Level 103, Carbon Dioxide Level 29, Anion Gap 4L, Blood Urea Nitrogen 18, Creatinine 0.7, Estimat Glomerular Filtration Rate > 60, Glucose Level 119H, Calcium Level 8.3L, Phosphorus Level 3.3, Magnesium Level 2.3, Total Bilirubin 0.3, Direct Bilirubin < 0.1, Aspartate Amino Transf (AST/SGOT) 22, Alanine Aminotransferase (ALT/SGPT) 29, Alkaline Phosphatase 44L, Troponin I 0.004, Total Protein 6.6, Albumin 2.6L, Globulin 4.0, Albumin/Globulin Ratio 0.6L 05/14/20 11:33: POC Whole Blood Glucose 168H Current Medications Medications (Trade) Dose Ordered Sig/Darcie Route PRN Reason Start Time Stop Time Status Last Admin Dose Admin Acetaminophen (Tylenol) 650 mg Q4H PRN ORAL FEVER 05/09/20 03:45 06/08/20 03:44 Albuterol Sulfate (Proventil MDI) 2 puff Q4H PRN INH Shortness of Breath 05/10/20 21:30 08/08/20 21:29 Amlodipine Besylate (Norvasc) 10 mg DAILY ORAL 05/09/20 09:00 06/08/20 08:59 05/09/20 08:56 Dexamethasone Sodium Phosphate (Decadron 10mg/ ml Inj) 6 mg DAILY IV 05/10/20 09:00 05/19/20 08:59 05/14/20 09:01 Dextrose (Dextrose 50%) 25 ml Q30M PRN IV Hypoglycemia 05/09/20 04:00 08/07/20 03:59 Dextrose (Dextrose 50%) 50 ml Q30M PRN IV Hypoglycemia 05/09/20 04:00 08/07/20 03:59 Docusate Sodium (Colace) 100 mg EVERY 12 HOURS ORAL 05/09/20 09:00 06/08/20 08:59 05/14/20 09:01 Enoxaparin Sodium (Lovenox) 40 mg Q24H SUBQ 05/10/20 09:00 08/08/20 08:59 05/14/20 09:03 Famotidine (Pepcid) 20 mg DAILY ORAL 05/11/20 21:15 08/09/20 21:14 05/14/20 09:01 Guaifenesin/ Dextromethorphan (Robitussin DM Syrup) 10 ml Q4H PRN ORAL For Cough 05/10/20 03:30 08/08/20 03:29 05/12/20 23:59 Insulin Aspart (NovoLOG) BEFORE MEALS AND HS SUBQ 05/09/20 06:30 08/07/20 06:29 05/14/20 11:41 Levofloxacin 150 ml @ 100 mls/hr Q24H IVPB 05/12/20 16:00 05/17/20 16:00 05/13/20 15:29 Magnesium Hydroxide (Mom) 30 ml HSPRN PRN ORAL Constipation 05/09/20 03:45 06/08/20 03:44 Pantoprazole (Protonix) 40 mg ACBREAKFAST ORAL 05/09/20 06:30 06/08/20 06:29 05/14/20 06:38 Remdesivir 100 mg/ Sodium Chloride 250 ml @ 250 mls/hr Q24H IV 05/13/20 16:00 05/16/20 16:59 05/13/20 16:31 Vancomycin HCl (Vanco pharmacy to dose) 1 ea DAILY PRN MISC Per rx protocol 05/12/20 11:45 06/11/20 11:44 Vancomycin HCl 1 gm/Sodium Chloride 275 ml @ 184 mls/hr Q8H IVPB 05/14/20 02:00 05/19/20 01:59 05/14/20 09:42 Zolpidem Tartrate (Ambien) 5 mg HSPRN ORAL 05/11/20 21:15 05/18/20 21:14 05/13/20 22:24 Assessment/Plan Assessment/Plan 1. COVID-19 pneumonia. - on decadron - on remdesivir per ID - CXR 05/12 shows worsening right, new left infiltrates likely focal pneumonia - CXR 05/14 pending - s/p one time dose lasix - On Levaquin and IV Vanco as well 2. Elevated inflammatory markers - CTA chest 05/12 neg for PE 3. History of hypertension. - on amlodipine - on clonidine prn 4. Diabetes mellitus. 5. Respiratory distress. - cont supplemental oxygen - currently saturating at 97% on 55% FiO2 Venturi mask 6. Leukocytosis; improved DVT ppx We will follow carefully. The care for this patient was discussed with my supervising physician. Time spent for this case was approximately 31 minutes. Alejandro Mckenna May 14, 2020 13:23 Olivier Lindsay MD May 14, 2020 16:37
[2020-05-14 16:00] VITALS: BP 128/75
[2020-05-14] MEDS: Maintenance Dose:Remdesivir 100mg/NS 230ml x 4 Doses IV SCH ×2 (16:31)
--- NOTE | 2020-05-14 17:14 | Cardiac Electrophysiology PN ---
Assessment/Plan Assessment/Plan 1. Hypertension and bradycardia. On p.r.n. clonidine. Decrease amlodipine to 5 mg daily. 2. Bradycardia. Patient is off of any sinus or AV kathi blocking agents, maybe due to COVID. 3. COVID pneumonia, on dexamethasone and vancomycin.on 15 liter VM 4. Diabetes, on insulin. Subjective Subjective Alert in NAD Refused amlodipine on 15 lite VM. HR high 40s and low 50s Objective Last 24 Hour Vital Signs Date Time Temp Pulse Resp B/P (MAP) Pulse Ox O2 Delivery O2 Flow Rate FiO2 05/14/20 16:00 96.6 55 18 128/75 (92) 99 05/14/20 12:00 96.3 63 18 106/65 (79) 94 05/14/20 12:00 61 05/14/20 09:00 57 113/77 05/14/20 09:00 Venturi Mask 15.0 05/14/20 08:00 98.0 57 20 113/77 (89) 97 05/14/20 08:00 63 05/14/20 04:00 51 05/14/20 04:00 97.6 60 23 118/81 (93) 96 05/14/20 00:00 50 05/14/20 00:00 97.7 55 22 132/82 (99) 95 05/13/20 21:00 Non-Rebreather 15.0 05/13/20 20:00 97.5 54 22 116/71 (86) 95 05/13/20 20:00 52 Intake and Output 05/13/20 05/14/20 19:00 07:00 Intake Total 600 ml 260 ml Balance 600 ml 260 ml Intake Oral 600 ml 260 ml # Voids 2 # Bowel Movements 1 Laboratory Tests Test 05/13/20 20:54 05/14/20 00:45 05/14/20 04:25 05/14/20 11:33 POC Whole Blood Glucose Pending 168 MG/DL (74-106) H Vancomycin Level Trough 5.4 ug/mL (5.0-12.0) White Blood Count 8.1 K/UL (4.8-10.8) Red Blood Count 4.22 M/UL (4.20-5.40) Hemoglobin 12.3 G/DL (12.0-16.0) Hematocrit 34.7 % (37.0-47.0) L Mean Corpuscular Volume 82 FL (80-99) Mean Corpuscular Hemoglobin 29.1 PG (27.0-31.0) Mean Corpuscular Hemoglobin Concent 35.3 G/DL (32.0-36.0) Red Cell Distribution Width 13.0 % (11.6-14.8) Platelet Count 434 K/UL (150-450) Mean Platelet Volume 6.1 FL (6.5-10.1) L Neutrophils (%) (Auto) 70.6 % (45.0-75.0) Lymphocytes (%) (Auto) 18.0 % (20.0-45.0) L Monocytes (%) (Auto) 10.6 % (1.0-10.0) H Eosinophils (%) (Auto) 0.1 % (0.0-3.0) Basophils (%) (Auto) 0.7 % (0.0-2.0) Sodium Level 136 MMOL/L (136-145) Potassium Level 3.9 MMOL/L (3.5-5.1) Chloride Level 103 MMOL/L (98-107) Carbon Dioxide Level 29 MMOL/L (21-32) Anion Gap 4 mmol/L (5-15) L Blood Urea Nitrogen 18 mg/dL (7-18) Creatinine 0.7 MG/DL (0.55-1.30) Estimat Glomerular Filtration Rate > 60 mL/min (>60) Glucose Level 119 MG/DL (74-106) H Calcium Level 8.3 MG/DL (8.5-10.1) L Phosphorus Level 3.3 MG/DL (2.5-4.9) Magnesium Level 2.3 MG/DL (1.8-2.4) Total Bilirubin 0.3 MG/DL (0.2-1.0) Direct Bilirubin < 0.1 MG/DL (0.0-0.3) Aspartate Amino Transf (AST/SGOT) 22 U/L (15-37) Alanine Aminotransferase (ALT/SGPT) 29 U/L (12-78) Alkaline Phosphatase 44 U/L (46-116) L Troponin I 0.004 ng/mL (0.000-0.056) Total Protein 6.6 G/DL (6.4-8.2) Albumin 2.6 G/DL (3.4-5.0) L Globulin 4.0 g/dL Albumin/Globulin Ratio 0.6 (1.0-2.7) L Objective HEAD AND NECK: no JVD. LUNGS: Coarse rhonchi. CARDIOVASCULAR: regular S1 and S2 with no gallop. ABDOMEN: Soft. EXTREMITIES: No pitting edema. Mike Easton MD May 14, 2020 17:14
--- NOTE | 2020-05-14 19:13 | General Progress Note ---
Subjective Allergies: Coded Allergies: PENICILLIN G (Verified Allergy, Mild, RESPIRATORY DISTRESS, 09/16/09) Subjective NO acute events overnight per nursing. Patient feeling much better today. Titrated down to Venturi mask 55% FiO2. 14 L. Telemetry reviewed. No events. Patient bradycardic to 38 at times while sleeping but asymptomatic. No chest pain. Still feels short of breath with movement. Review of systems: Constitutional: Denies: chills, diaphoresis, fever, malaise, weakness, HEENT: Denies: eye pain, blurred vision, double vision, ear pain, nose pain, t hroat pain, Cardiovascular: Denies: chest pain, edema, lightheadedness, palpitations Respiratory: See HPI Gastrointestinal/Abdominal: Denies: abdominal pain, black stools, blood in stool, constipation, diarrhea, nausea, poor fluid intake vomiting, other Genitourinary: Denies: burning, discharge, frequency, Neurologic/Psychiatric: Denies: headache, numbness, paresthesia, new weakness, other Endocrine: Denies: excessive sweating, flushing, intolerance to cold, MSK: denies joint pains, swelling, stiffness Hematologic/Lymphatic: Denies: anemia, easy bleeding, easy bruising, Objective Last 24 Hour Vital Signs Date Time Temp Pulse Resp B/P (MAP) Pulse Ox O2 Delivery O2 Flow Rate FiO2 05/14/20 16:00 96.6 55 18 128/75 (92) 99 05/14/20 16:00 67 05/14/20 12:00 96.3 63 18 106/65 (79) 94 05/14/20 12:00 61 05/14/20 09:00 57 113/77 05/14/20 09:00 Venturi Mask 15.0 05/14/20 08:00 98.0 57 20 113/77 (89) 97 05/14/20 08:00 63 05/14/20 04:00 51 05/14/20 04:00 97.6 60 23 118/81 (93) 96 05/14/20 00:00 50 05/14/20 00:00 97.7 55 22 132/82 (99) 95 05/13/20 21:00 Non-Rebreather 15.0 05/13/20 20:00 97.5 54 22 116/71 (86) 95 05/13/20 20:00 52 Intake and Output 05/13/20 05/14/20 19:00 07:00 Intake Total 600 ml 260 ml Balance 600 ml 260 ml Intake Oral 600 ml 260 ml # Voids 2 # Bowel Movements 1 Laboratory Tests 05/13/20 20:54: POC Whole Blood Glucose [Pending] 05/14/20 00:45: Vancomycin Level Trough 5.4 05/14/20 04:25: White Blood Count 8.1, Red Blood Count 4.22, Hemoglobin 12.3, Hematocrit 34.7L, Mean Corpuscular Volume 82, Mean Corpuscular Hemoglobin 29.1, Mean Corpuscular Hemoglobin Concent 35.3, Red Cell Distribution Width 13.0, Platelet Count 434, Mean Platelet Volume 6.1L, Neutrophils (%) (Auto) 70.6, Lymphocytes (%) (Auto) 18.0L, Monocytes (%) (Auto) 10.6H, Eosinophils (%) (Auto) 0.1, Basophils (%) (Auto) 0.7, Sodium Level 136, Potassium Level 3.9, Chloride Level 103, Carbon Dioxide Level 29, Anion Gap 4L, Blood Urea Nitrogen 18, Creatinine 0.7, Estimat Glomerular Filtration Rate > 60, Glucose Level 119H, Calcium Level 8.3L, Phosphorus Level 3.3, Magnesium Level 2.3, Total Bilirubin 0.3, Direct Bilirubin < 0.1, Aspartate Amino Transf (AST/SGOT) 22, Alanine Aminotransferase (ALT/SGPT) 29, Alkaline Phosphatase 44L, Troponin I 0.004, Total Protein 6.6, Albumin 2.6L, Globulin 4.0, Albumin/Globulin Ratio 0.6L 05/14/20 11:33: POC Whole Blood Glucose 168H Height (Feet): 5 Height (Inches): 3.00 Weight (Pounds): 175 Objective General: WDWN female in NAD, A&O x 4. On venturi mask now. Stable HEENT: Normocephalic cephalic atraumatic, pupils equal round reactive to light and accommodation, nares patent and no symmetrical, no tonsillar exudates, mucous membranes moist CV: Regular rate regular rhythm, no murmurs, rubs, or gallops Pulm: Lungs coarse breath sounds bilaterally (improving). No wheezes, rhonchi, or rales GI: Soft, nontender, nondistended, bowel sounds present Neuro: CN 2-12 intact bilaterally, no focal signs. Ext: No lower extremity edema bilaterally Skin: no rashes lesions or ulcers Msk: Joints symmetrical in upper extremity and lower extremity bilaterally, no joint swelling. Lymph: No lymphadenopathy in upper extremity and lower extremity Assessment/Plan Assessment/Plan: #COVID19 PNA #Sepsis due to COVID #Superimposed bacterial pneumonia CAP vs. HAP #Elevated inflammatory markers #elevated d-dimer: negative duplex and CT angio for PE #Acute hypoxic respiratory failure due to COVID - Admit to [facility] floor - Apply supplemental oxygenation as needed - decadron 6mg IV for 10days (05/09 - ) - Remdesivir per ID (05/12 - ) - Continue levaquin 750mg IV daily (05/09 - ) - Vanc per pharmacy (05/12 - ) - Abx per ID - follow cultures: NGTD - CT angio 05/12: neg for PE. Worsening infiltrates - ID consulted: Dr. Mi - Pulm consulted: Dr. Lindsay - ABG reviewed - wean O2 #asymptomatic bradycardia - tele - Appreciate cardiology consult: Dr. Easton #DMT2 - SSI - Accuchecks - Hypoglycemia protocol Holding home Metformin #HTN - Norvasc 10mg daily FENPPX DVTPPX: Lovenox Diet: Diabetic PT/OT: pending improvement Code status: Full Dispo: home vs. rehab Reason for Continued Hospitalization: hypoxia 37 minutes spent on this encounter, and 22 minutes spent on counseling and care coordination. Discussed with ID and Pulm Time of note may not reflect time patient was seen. Louis Davis D.O. May 14, 2020 19:13
[2020-05-14 20:00] VITALS: BP 116/59
[2020-05-14] MEDS: Zolpidem 5mg tab ORAL SCH (21:36)
[2020-05-15] VITALS: BP 110/60
[2020-05-15 04:00] VITALS: BP 119/70
[2020-05-15 06:23] LABS: BASOPHILS % (AUTO) 0.2 % (0.0-2.0); HEMATOCRIT 37.1 % (37.0-47.0); HEMOGLOBIN 12.6 G/DL (12.0-16.0); LYMPHOCYTES % (AUTO) 21.7 % (20.0-45.0); MEAN CORPUSCULAR VOLUME 86 FL (80-99); MONOCYTES % (AUTO) 9.5 % (1.0-10.0); NEUTROPHILS % (AUTO) 68.6 % (45.0-75.0); PLATELET COUNT 441 K/UL (150-450); RED CELL DISTRIBUTION WIDTH 12.9 % (11.6-14.8); WHITE BLOOD COUNT 8.6 K/UL (4.8-10.8)
[2020-05-15] MEDS: NovoLOG Insulin Flexpen SUBQ SCH ×4 (06:30→21:31)
[2020-05-15 06:48] LABS: ALANINE AMINOTRANSFERASE 39 U/L (12-78); ALBUMIN 2.6 G/DL (3.4-5.0); ALBUMIN/GLOBULIN RATIO 0.7 (1.0-2.7); ALKALINE PHOSPHATASE 43 U/L (46-116); ANION GAP 6 mmol/L (5-15); ASPARTATE AMINO TRANSFERASE 32 U/L (15-37); BILIRUBIN,DIRECT < 0.1 MG/DL (0.0-0.3); BILIRUBIN,TOTAL 0.4 MG/DL (0.2-1.0); BLOOD UREA NITROGEN 19 mg/dL (7-18); CALCIUM 8.2 MG/DL (8.5-10.1); CARBON DIOXIDE 28 MMOL/L (21-32); CHLORIDE 103 MMOL/L (98-107); CREATININE 0.6 MG/DL (0.55-1.30); POTASSIUM 4.5 MMOL/L (3.5-5.1); SODIUM 137 MMOL/L (136-145)
[2020-05-15 08:00] VITALS: BP 110/67
[2020-05-15] MEDS: dexAMETHasone 10mg/ml Inj IV SCH (08:51)
[2020-05-15] MEDS: Docusate 100mg cap ORAL SCH ×2 (08:51→20:18)
[2020-05-15] MEDS: Enoxaparin 40mg Inj SUBQ SCH (08:53)
--- NOTE | 2020-05-15 09:52 | Diagnostic Imaging Report ---
EXAM: XR Chest, 1 View CLINICAL HISTORY: INFECT TECHNIQUE: Frontal view of the chest. COMPARISON: Chest radiograph May 12, 2020 FINDINGS/IMPRESSION: Patchy bilateral airspace consolidations, consistent with multifocal infiltrate. Mild improvement when compared to May 12, 2020. Follow- up chest rating up recommended. Otherwise, stable exam.
[2020-05-15 12:00] VITALS: BP 96/60
[2020-05-15 16:00] VITALS: BP 98/58
--- NOTE | 2020-05-15 16:00 | Pulmonology Progress Note ---
Subjective ROS Limited/Unobtainable: No Interval Events: saturating well on 55% FiO2 Venturi mask at rest; hypoximic when off oxygen Constitutional: Reports: fatigue; Denies: fever HEENT: Repors: no symptoms Respiratory: Reports: no symptoms; Denies: shortness of breath, dyspnea at rest Cardiovascular: Reports: no symptoms Gastrointestinal/Abdominal: Denies: nausea, vomiting, diarrhea Genitourinary: Reports: no symptoms Psychiatric: Reports: other - NA Skin: Denies: rash Musculoskeletal: Denies: pain Allergies: Coded Allergies: PENICILLIN G (Verified Allergy, Mild, RESPIRATORY DISTRESS, 09/16/09) Objective Last 24 Hour Vital Signs Date Time Temp Pulse Resp B/P (MAP) Pulse Ox O2 Delivery O2 Flow Rate FiO2 05/15/20 12:00 56 05/15/20 12:00 97.7 60 20 96/60 (72) 95 05/15/20 09:00 Non-Rebreather 15.0 05/15/20 08:51 67 110/67 05/15/20 08:00 97.5 67 20 110/67 (81) 94 05/15/20 08:00 70 05/15/20 04:00 49 05/15/20 04:00 97.9 62 18 119/70 (86) 96 05/15/20 00:00 50 05/15/20 00:00 97.0 54 18 110/60 (77) 94 05/14/20 21:00 Non-Rebreather 15.0 05/14/20 20:00 58 05/14/20 20:00 97.9 57 18 116/59 (78) 97 05/14/20 19:43 95 Venturi Mask 14.0 55 05/14/20 16:00 96.6 55 18 128/75 (92) 99 05/14/20 16:00 67 Intake and Output 05/14/20 05/15/20 19:00 07:00 Intake Total 720 ml 300 ml Balance 720 ml 300 ml Intake Oral 720 ml 300 ml # Voids 3 2 Objective 05/15 saturating 96-97% on 14L venturi mask 05/13 pt saturating 94-95% on 15L NRB 05/12/2020 pt in bed saturating well on Venturi mask 14L 05/11/2020 pt in bed; saturating well on low flow oxygen NC General Appearance: WD/WN, no acute distress HEENT: normocephalic Respiratory: chest wall non-tender, crackles/rales - mild Cardiovascular: normal peripheral pulses, normal rate, no gallop/murmur Abdomen: soft, non tender Laboratory Tests 05/15/20 01:14: Vancomycin Level Trough 11.4 05/15/20 04:10: White Blood Count 8.6, Red Blood Count 4.30, Hemoglobin 12.6, Hematocrit 37.1, Mean Corpuscular Volume 86, Mean Corpuscular Hemoglobin 29.3, Mean Corpuscular Hemoglobin Concent 34.0, Red Cell Distribution Width 12.9, Platelet Count 441, Mean Platelet Volume 5.9L, Neutrophils (%) (Auto) 68.6, Lymphocytes (%) (Auto) 21.7, Monocytes (%) (Auto) 9.5, Eosinophils (%) (Auto) 0.0, Basophils (%) (Auto) 0.2, Sodium Level 137, Potassium Level 4.5, Chloride Level 103, Carbon Dioxide Level 28, Anion Gap 6, Blood Urea Nitrogen 19H, Creatinine 0.6, Estimat Glomerular Filtration Rate > 60, Glucose Level 106, Calcium Level 8.2L, Total Bilirubin 0.4, Direct Bilirubin < 0.1, Aspartate Amino Transf (AST/SGOT) 32, Alanine Aminotransferase (ALT/SGPT) 39, Alkaline Phosphatase 43L, Total Protein 6.5, Albumin 2.6L, Globulin 3.9, Albumin/Globulin Ratio 0.7L 05/15/20 06:35: POC Whole Blood Glucose 112H Current Medications Medications (Trade) Dose Ordered Sig/Darcie Route PRN Reason Start Time Stop Time Status Last Admin Dose Admin Acetaminophen (Tylenol) 650 mg Q4H PRN ORAL FEVER 05/09/20 03:45 06/08/20 03:44 Albuterol Sulfate (Proventil MDI) 2 puff Q4H PRN INH Shortness of Breath 05/10/20 21:30 08/08/20 21:29 Amlodipine Besylate (Norvasc) 5 mg DAILY ORAL 05/15/20 09:00 06/08/20 08:59 05/15/20 08:51 Dexamethasone Sodium Phosphate (Decadron 10mg/ ml Inj) 6 mg DAILY IV 05/10/20 09:00 05/19/20 08:59 05/15/20 08:51 Dextrose (Dextrose 50%) 25 ml Q30M PRN IV Hypoglycemia 05/09/20 04:00 08/07/20 03:59 Dextrose (Dextrose 50%) 50 ml Q30M PRN IV Hypoglycemia 05/09/20 04:00 08/07/20 03:59 Docusate Sodium (Colace) 100 mg EVERY 12 HOURS ORAL 05/09/20 09:00 06/08/20 08:59 05/15/20 08:51 Enoxaparin Sodium (Lovenox) 40 mg Q24H SUBQ 05/10/20 09:00 08/08/20 08:59 05/15/20 08:53 Famotidine (Pepcid) 20 mg DAILY ORAL 05/11/20 21:15 08/09/20 21:14 05/15/20 08:51 Guaifenesin/ Dextromethorphan (Robitussin DM Syrup) 10 ml Q4H PRN ORAL For Cough 05/10/20 03:30 08/08/20 03:29 05/12/20 23:59 Insulin Aspart (NovoLOG) BEFORE MEALS AND HS SUBQ 05/09/20 06:30 08/07/20 06:29 05/15/20 12:00 Levofloxacin 150 ml @ 100 mls/hr Q24H IVPB 05/12/20 16:00 05/17/20 16:00 05/15/20 15:11 Magnesium Hydroxide (Mom) 30 ml HSPRN PRN ORAL Constipation 05/09/20 03:45 06/08/20 03:44 Pantoprazole (Protonix) 40 mg ACBREAKFAST ORAL 05/09/20 06:30 06/08/20 06:29 05/15/20 06:33 Remdesivir 100 mg/ Sodium Chloride 250 ml @ 250 mls/hr Q24H IV 05/13/20 16:00 05/16/20 16:59 05/14/20 16:31 Vancomycin HCl 300 ml @ 150 mls/hr Q8H IVPB 05/15/20 20:00 05/20/20 19:59 Vancomycin HCl (Vanco pharmacy to dose) 1 ea DAILY PRN MISC Per rx protocol 05/12/20 11:45 06/11/20 11:44 Zolpidem Tartrate (Ambien) 5 mg HSPRN ORAL 05/11/20 21:15 05/18/20 21:14 05/14/20 21:36 Assessment/Plan Assessment/Plan 1. COVID-19 pneumonia. - on decadron - on remdesivir per ID - CXR 05/12 shows worsening right, new left infiltrates likely focal pneumonia - CXR 05/14 Mild improvement when compared to 05/12 - s/p one time dose lasix - On Levaquin and IV Vanco as well 2. Elevated inflammatory markers - CTA chest 05/12 neg for PE 3. History of hypertension. - on amlodipine - on clonidine prn 4. Diabetes mellitus. 5. Respiratory distress. - cont supplemental oxygen - currently saturating at 97% on 55% FiO2 Venturi mask 6. Leukocytosis; improved DVT ppx We will follow carefully. The care for this patient was discussed with my supervising physician. Time spent for this case was approximately 31 minutes. Alejandro Mckenna May 15, 2020 16:00
[2020-05-15] MEDS: Maintenance Dose:Remdesivir 100mg/NS 230ml x 4 Doses IV SCH ×2 (16:30)
--- NOTE | 2020-05-15 16:45 | Infectious Diseases Prog Note ---
Assessment/Plan Assessment/Plan A) 1) covid-19 with pna, ? cap, hypoxia 2) DM, HTN 3) sh-neg, FH-nc, mar noted 4) allergies - pcn 5) d/w RN 6) notes and records noted P) 1) dexamethasone, remdesivir, levofloxacin, vancomycin 2) monitor respiratory status 3) monitor labs and chest x-ray 4) d/w primary team 5) clinically mildly improved, chest x-ray - 05/15/20 - improved Subjective Constitutional: Denies: fever, fatigue HEENT: Reports: congestion - less Respiratory: Reports: shortness of breath - less Cardiovascular: Denies: chest pain Gastrointestinal/Abdominal: Denies: nausea, vomiting, diarrhea Genitourinary: Reports: other - no ayoub Neurologic: Denies: headache Psychiatric: Denies: depression Skin: Denies: rash Hematologic: Denies: bleeding Musculoskeletal: Denies: pain Allergies: Coded Allergies: PENICILLIN G (Verified Allergy, Mild, RESPIRATORY DISTRESS, 09/16/09) Objective Last 24 Hour Vital Signs Date Time Temp Pulse Resp B/P (MAP) Pulse Ox O2 Delivery O2 Flow Rate FiO2 05/15/20 12:00 56 05/15/20 12:00 97.7 60 20 96/60 (72) 95 05/15/20 09:00 Non-Rebreather 15.0 05/15/20 08:51 67 110/67 05/15/20 08:00 97.5 67 20 110/67 (81) 94 05/15/20 08:00 70 05/15/20 04:00 49 05/15/20 04:00 97.9 62 18 119/70 (86) 96 05/15/20 00:00 50 05/15/20 00:00 97.0 54 18 110/60 (77) 94 05/14/20 21:00 Non-Rebreather 15.0 05/14/20 20:00 58 05/14/20 20:00 97.9 57 18 116/59 (78) 97 05/14/20 19:43 95 Venturi Mask 14.0 55 Height (Feet): 5 Height (Inches): 3.00 Weight (Pounds): 175 General Appearance: no acute distress, other - seem less HEENT: normocephalic, atraumatic, anicteric, mucous membranes moist Respiratory/Chest: crackles/rales, rhonchi - bilaterally Cardiovascular: normal rate, regular rhythm Abdomen: soft, non tender, no organomegaly, non distended Genitourinary: other - no ayoub Extremities: no cyanosis Skin: no rash Neurologic/Psychiatric: heater furnace II-XII grossly normal, alert, responsive Lymphatic: no neck adenopathy Musculoskeletal: no effusion CT chest - 05/12/20 - Impression: Negative for evidence of acute pulmonary embolus Extensive bilateral infiltrates, likely multifocal pneumonia and quite likely viral Mild cardiomegaly Fatty liver, also previously reported Chest x-ray - 05/15/20 - FINDINGS/IMPRESSION: Patchy bilateral airspace consolidations, consistent with multifocal infiltrate. Mild improvement when compared to May 12, 2020. Follow- up chest rating up recommended. Otherwise, stable exam. Dictated By: Mike Hargrove M.D. Electronically Signed By:Mike Hargrove M.D. Signed Date/Time 05/15/20 0952 Microbiology Date/Time Source Procedure Growth Status 05/08/20 23:19 Blood Blood Culture - Final NO GROWTH AFTER 5 DAYS Complete Laboratory Tests Test 05/15/20 01:14 05/15/20 04:10 05/15/20 06:35 05/15/20 16:35 Vancomycin Level Trough 11.4 ug/mL (5.0-12.0) White Blood Count 8.6 K/UL (4.8-10.8) Red Blood Count 4.30 M/UL (4.20-5.40) Hemoglobin 12.6 G/DL (12.0-16.0) Hematocrit 37.1 % (37.0-47.0) Mean Corpuscular Volume 86 FL (80-99) Mean Corpuscular Hemoglobin 29.3 PG (27.0-31.0) Mean Corpuscular Hemoglobin Concent 34.0 G/DL (32.0-36.0) Red Cell Distribution Width 12.9 % (11.6-14.8) Platelet Count 441 K/UL (150-450) Mean Platelet Volume 5.9 FL (6.5-10.1) L Neutrophils (%) (Auto) 68.6 % (45.0-75.0) Lymphocytes (%) (Auto) 21.7 % (20.0-45.0) Monocytes (%) (Auto) 9.5 % (1.0-10.0) Eosinophils (%) (Auto) 0.0 % (0.0-3.0) Basophils (%) (Auto) 0.2 % (0.0-2.0) Sodium Level 137 MMOL/L (136-145) Potassium Level 4.5 MMOL/L (3.5-5.1) Chloride Level 103 MMOL/L (98-107) Carbon Dioxide Level 28 MMOL/L (21-32) Anion Gap 6 mmol/L (5-15) Blood Urea Nitrogen 19 mg/dL (7-18) H Creatinine 0.6 MG/DL (0.55-1.30) Estimat Glomerular Filtration Rate > 60 mL/min (>60) Glucose Level 106 MG/DL (74-106) Calcium Level 8.2 MG/DL (8.5-10.1) L Total Bilirubin 0.4 MG/DL (0.2-1.0) Direct Bilirubin < 0.1 MG/DL (0.0-0.3) Aspartate Amino Transf (AST/SGOT) 32 U/L (15-37) Alanine Aminotransferase (ALT/SGPT) 39 U/L (12-78) Alkaline Phosphatase 43 U/L (46-116) L Total Protein 6.5 G/DL (6.4-8.2) Albumin 2.6 G/DL (3.4-5.0) L Globulin 3.9 g/dL Albumin/Globulin Ratio 0.7 (1.0-2.7) L POC Whole Blood Glucose 112 MG/DL (74-106) H 244 MG/DL (74-106) H Current Medications Medications (Trade) Dose Ordered Sig/Darcie Route PRN Reason Start Time Stop Time Status Last Admin Dose Admin Acetaminophen (Tylenol) 650 mg Q4H PRN ORAL FEVER 05/09/20 03:45 06/08/20 03:44 Albuterol Sulfate (Proventil MDI) 2 puff Q4H PRN INH Shortness of Breath 05/10/20 21:30 08/08/20 21:29 Amlodipine Besylate (Norvasc) 5 mg DAILY ORAL 05/15/20 09:00 06/08/20 08:59 05/15/20 08:51 Dexamethasone Sodium Phosphate (Decadron 10mg/ ml Inj) 6 mg DAILY IV 05/10/20 09:00 05/19/20 08:59 05/15/20 08:51 Dextrose (Dextrose 50%) 25 ml Q30M PRN IV Hypoglycemia 05/09/20 04:00 08/07/20 03:59 Dextrose (Dextrose 50%) 50 ml Q30M PRN IV Hypoglycemia 05/09/20 04:00 08/07/20 03:59 Docusate Sodium (Colace) 100 mg EVERY 12 HOURS ORAL 05/09/20 09:00 06/08/20 08:59 05/15/20 08:51 Enoxaparin Sodium (Lovenox) 40 mg Q24H SUBQ 05/10/20 09:00 08/08/20 08:59 05/15/20 08:53 Famotidine (Pepcid) 20 mg DAILY ORAL 05/11/20 21:15 08/09/20 21:14 05/15/20 08:51 Guaifenesin/ Dextromethorphan (Robitussin DM Syrup) 10 ml Q4H PRN ORAL For Cough 05/10/20 03:30 08/08/20 03:29 05/12/20 23:59 Insulin Aspart (NovoLOG) BEFORE MEALS AND HS SUBQ 05/09/20 06:30 08/07/20 06:29 05/15/20 12:00 Levofloxacin 150 ml @ 100 mls/hr Q24H IVPB 05/12/20 16:00 05/17/20 16:00 05/15/20 15:11 Magnesium Hydroxide (Mom) 30 ml HSPRN PRN ORAL Constipation 05/09/20 03:45 06/08/20 03:44 Pantoprazole (Protonix) 40 mg ACBREAKFAST ORAL 05/09/20 06:30 06/08/20 06:29 05/15/20 06:33 Remdesivir 100 mg/ Sodium Chloride 250 ml @ 250 mls/hr Q24H IV 05/13/20 16:00 05/16/20 16:59 05/15/20 16:30 Vancomycin HCl 300 ml @ 150 mls/hr Q8H IVPB 05/15/20 20:00 05/20/20 19:59 Vancomycin HCl (Vanco pharmacy to dose) 1 ea DAILY PRN MISC Per rx protocol 05/12/20 11:45 06/11/20 11:44 Zolpidem Tartrate (Ambien) 5 mg HSPRN ORAL 05/11/20 21:15 05/18/20 21:14 05/14/20 21:36 Vicente Yang MD May 15, 2020 16:45
--- NOTE | 2020-05-15 19:34 | General Progress Note ---
Subjective Allergies: Coded Allergies: PENICILLIN G (Verified Allergy, Mild, RESPIRATORY DISTRESS, 09/16/09) Subjective NO acute events overnight per nursing. Patient continues to feel better. Saturating 95% on Venturi mask still, 15L. Feeling more energy. Still with asymptomatic bradycardia. Still feels short of breath with movement. Review of systems: Constitutional: Denies: chills, diaphoresis, fever, malaise, weakness, HEENT: Denies: eye pain, blurred vision, double vision, ear pain, nose pain, throat pain, Cardiovascular: Denies: chest pain, edema, lightheadedness, palpitations Respiratory: See HPI Gastrointestinal/Abdominal: Denies: abdominal pain, black stools, blood in stool, constipation, diarrhea, nausea, poor fluid intake vomiting, other Genitourinary: Denies: burning, discharge, frequency, Neurologic/Psychiatric: Denies: headache, numbness, paresthesia, new weakness, other Endocrine: Denies: excessive sweating, flushing, intolerance to cold, MSK: denies joint pains, swelling, stiffness Hematologic/Lymphatic: Denies: anemia, easy bleeding, easy bruising, Objective Last 24 Hour Vital Signs Date Time Temp Pulse Resp B/P (MAP) Pulse Ox O2 Delivery O2 Flow Rate FiO2 05/15/20 16:00 51 05/15/20 16:00 96.6 55 20 98/58 (71) 96 05/15/20 12:00 56 05/15/20 12:00 97.7 60 20 96/60 (72) 95 05/15/20 09:00 Non-Rebreather 15.0 05/15/20 08:51 67 110/67 05/15/20 08:00 97.5 67 20 110/67 (81) 94 05/15/20 08:00 70 05/15/20 04:00 49 05/15/20 04:00 97.9 62 18 119/70 (86) 96 05/15/20 00:00 50 05/15/20 00:00 97.0 54 18 110/60 (77) 94 05/14/20 21:00 Non-Rebreather 15.0 05/14/20 20:00 58 05/14/20 20:00 97.9 57 18 116/59 (78) 97 05/14/20 19:43 95 Venturi Mask 14.0 55 Intake and Output 12/19/20 12/20/20 19:00 07:00 Intake Total 720 ml 300 ml Balance 720 ml 300 ml Intake Oral 720 ml 300 ml # Voids 3 2 Laboratory Tests 05/15/20 01:14: Vancomycin Level Trough 11.4 05/15/20 04:10: White Blood Count 8.6, Red Blood Count 4.30, Hemoglobin 12.6, Hematocrit 37.1, Mean Corpuscular Volume 86, Mean Corpuscular Hemoglobin 29.3, Mean Corpuscular Hemoglobin Concent 34.0, Red Cell Distribution Width 12.9, Platelet Count 441, Mean Platelet Volume 5.9L, Neutrophils (%) (Auto) 68.6, Lymphocytes (%) (Auto) 21.7, Monocytes (%) (Auto) 9.5, Eosinophils (%) (Auto) 0.0, Basophils (%) (Auto) 0.2, Sodium Level 137, Potassium Level 4.5, Chloride Level 103, Carbon Dioxide Level 28, Anion Gap 6, Blood Urea Nitrogen 19H, Creatinine 0.6, Estimat Glomerular Filtration Rate > 60, Glucose Level 106, Calcium Level 8.2L, Total Bilirubin 0.4, Direct Bilirubin < 0.1, Aspartate Amino Transf (AST/SGOT) 32, Alanine Aminotransferase (ALT/SGPT) 39, Alkaline Phosphatase 43L, Total Protein 6.5, Albumin 2.6L, Globulin 3.9, Albumin/Globulin Ratio 0.7L 05/15/20 06:35: POC Whole Blood Glucose 112H 05/15/20 16:35: POC Whole Blood Glucose 244H Height (Feet): 5 Height (Inches): 3.00 Weight (Pounds): 175 Objective General: WDWN female in NAD, A&O x 4. On venturi mask now. Stable HEENT: Normocephalic cephalic atraumatic, pupils equal round reactive to light and accommodation, nares patent and no symmetrical, no tonsillar exudates, mucous membranes moist CV: Regular rate regular rhythm, no murmurs, rubs, or gallops Pulm: Lungs coarse breath sounds bilaterally (improving). No wheezes, or rales GI: Soft, nontender, nondistended, bowel sounds present Neuro: CN 2-12 intact bilaterally, no focal signs. Ext: No lower extremity edema bilaterally Skin: no rashes lesions or ulcers Msk: Joints symmetrical in upper extremity and lower extremity bilaterally, no joint swelling. Lymph: No lymphadenopathy in upper extremity and lower extremity Assessment/Plan Assessment/Plan: #COVID19 PNA #Sepsis due to COVID #Superimposed bacterial pneumonia CAP vs. HAP #Elevated inflammatory markers #elevated d-dimer: negative duplex and CT angio for PE #Acute hypoxic respiratory failure due to COVID - Admit to [facility] floor - Apply supplemental oxygenation as needed - decadron 6mg IV for 10days (05/09 - ) - Remdesivir per ID (05/12 - ) - Continue levaquin 750mg IV daily (05/09 - ) - Vanc per pharmacy (05/12 - ) - Abx per ID - follow cultures: NGTD - CT angio 05/12: neg for PE. Worsening infiltrates - ID consulted: Dr. Mi - Pulm consulted: D/w ALIA Allen and Dr. Neftali GARCIA reviewed - wean O2. D/w Nursing who will also discuss with RT #asymptomatic bradycardia - tele - Appreciate cardiology consult: Dr. Easton #DMT2 - SSI - Accuchecks - Hypoglycemia protocol Holding home Metformin #HTN - Norvasc 10mg daily FENPPX DVTPPX: Lovenox Diet: Diabetic PT/OT: pending improvement Code status: Full Dispo: home vs. rehab Reason for Continued Hospitalization: hypoxia MIPS ([employer]centive Payment System) Applicable CPT: 60334, 43527 CHECK ALL THAT ARE MET: [] Measure #5 (CHF): All ages. Prescribe RENE/ARB upon discharge for patients with left ventricular systolic dysfunction. If not, the reason is clearly documented in the medical chart [] Measure #8 (CHF): All ages. Prescribe a beta nay upon discharge for patients with left ventricular systolic dysfunction. If not, the reason is clearly documented in the medical chart. [x] Measure #47: Advance care plan or surrogate decision maker documented in the medical record. [x] Measure #130 The provider has documented, updated, or reviewed the patient s current medication list and has documented it in the patients note. [x] Measure #374 (All): Send report to referring provider. [] Measure #407(Sepsis due to MSSA bacteremia): Age 18+ Patient treated with a beta-lactam antibiotic (Nafcillin, Oxacillin or Cefazolin) as definitive therapy. MEDICAL COMPLEXITYHigh complexity medical decision making (need 2/3 categories)Problem - need 4 points [x]Acute/new problem with new plan for workup (4 points, 1 max) [] Acute/new problem without additional workup (3 points, 1 max) [x] Unstable chronic problem actively being managed (2 point each, 2 max) [x] Stable chronic problem actively being managed (1 point each, 2 max) [] Self-limited/transient process (constipation, muscle ache, etc) (1 point each, 2 max) Data - need 4 points [x] Reviewed labs/imaging studies (1 points, 2 max) [x] Independent review of imaging (EKG, xrays, etc) (2 points, 2 max) [x] Discussed case with consult/other MD/RN (2 points, 2 max) High Risk - qualify if have one of the following: [] Severe exacerbation of acute problem, acute mental status change, IV narcotics, monitoring drug levels (vancomycin, INR, tacrolimus etc) I spent 36 minutes on this patient's case, and 20 mins was dedicated to counseling and/or care coordination. Discussed with Patti MISHRA, RN at bedside. Time of note may not reflect time of encounter Louis Davis D.O. May 15, 2020 19:34
[2020-05-15 20:00] VITALS: BP 99/60
[2020-05-15] MEDS: VANCOMYCIN 1.25 GM/250 ML IVPB SCH (20:18)
[2020-05-15] MEDS: Zolpidem 5mg tab ORAL SCH (22:49)
[2020-05-16] VITALS: BP 103/63
[2020-05-16 04:00] VITALS: BP 110/58
[2020-05-16] MEDS: VANCOMYCIN 1.25 GM/250 ML IVPB SCH (04:08)
[2020-05-16] MEDS: NovoLOG Insulin Flexpen SUBQ SCH ×4 (06:30→21:00)
[2020-05-16 07:21] LABS: BASOPHILS % (AUTO) 0.4 % (0.0-2.0); EOSINOPHILS % (AUTO) 0.3 % (0.0-3.0); HEMATOCRIT 36.5 % (37.0-47.0); HEMOGLOBIN 12.5 G/DL (12.0-16.0); LYMPHOCYTES % (AUTO) 26.1 % (20.0-45.0); MEAN CORPUSCULAR VOLUME 86 FL (80-99); MONOCYTES % (AUTO) 7.8 % (1.0-10.0); NEUTROPHILS % (AUTO) 65.5 % (45.0-75.0); PLATELET COUNT 466 K/UL (150-450); RED BLOOD COUNT 4.26 M/UL (4.20-5.40); RED CELL DISTRIBUTION WIDTH 12.7 % (11.6-14.8); WHITE BLOOD COUNT 10.4 K/UL (4.8-10.8)
[2020-05-16 07:24] LABS: ALANINE AMINOTRANSFERASE 50 U/L (12-78); ALBUMIN 2.7 G/DL (3.4-5.0); ALBUMIN/GLOBULIN RATIO 0.7 (1.0-2.7); ALKALINE PHOSPHATASE 39 U/L (46-116); ANION GAP 8 mmol/L (5-15); ASPARTATE AMINO TRANSFERASE 37 U/L (15-37); BILIRUBIN,DIRECT < 0.1 MG/DL (0.0-0.3); BILIRUBIN,TOTAL 0.5 MG/DL (0.2-1.0); BLOOD UREA NITROGEN 19 mg/dL (7-18); CALCIUM 8.4 MG/DL (8.5-10.1); CARBON DIOXIDE 27 MMOL/L (21-32); CHLORIDE 103 MMOL/L (98-107); CREATININE 0.7 MG/DL (0.55-1.30); POTASSIUM 4.1 MMOL/L (3.5-5.1); SODIUM 137 MMOL/L (136-145)
[2020-05-16 08:00] VITALS: BP 132/64
[2020-05-16 08:05] LABS: PHOSPHORUS 3.7 MG/DL (2.5-4.9)
[2020-05-16] MEDS: dexAMETHasone 10mg/ml Inj IV SCH (09:58)
[2020-05-16] MEDS: Enoxaparin 40mg Inj SUBQ SCH (09:59)
[2020-05-16] MEDS: Docusate 100mg cap ORAL SCH ×2 (09:59→21:00)
--- NOTE | 2020-05-16 11:34 | Cardiac Electrophysiology PN ---
Assessment/Plan Assessment/Plan 1. Hypertension and bradycardia. On p.r.n. clonidine. On amlodipine to 5 mg daily. 2. Bradycardia. Off any sinus or AV kathi blocking agents, may be due to COVID. Watch on tele. 3. COVID pneumonia, on dexamethasone and vancomycin on 15 liter VM 4. Diabetes, on insulin. Subjective Subjective Alert in NAD on 15 liter VM. HR goes as low as 41. Sitting on the bed. Objective Last 24 Hour Vital Signs Date Time Temp Pulse Resp B/P (MAP) Pulse Ox O2 Delivery O2 Flow Rate FiO2 05/16/20 10:57 55 132/64 05/16/20 04:00 97.2 56 20 110/58 (75) 95 05/16/20 04:00 55 05/16/20 01:43 42 05/16/20 00:00 97.0 56 20 103/63 (76) 97 05/15/20 21:00 Non-Rebreather 15.0 05/15/20 20:11 96 Venturi Mask 14.0 55 05/15/20 20:00 97.9 60 20 99/60 (73) 95 05/15/20 20:00 50 05/15/20 16:00 51 05/15/20 16:00 96.6 55 20 98/58 (71) 96 05/15/20 12:00 56 05/15/20 12:00 97.7 60 20 96/60 (72) 95 Intake and Output 0 05/15/20 05/16/20 19:00 07:00 Intake Total 720 ml 250 ml Balance 720 ml 250 ml Intake Oral 720 ml 250 ml # Voids 3 2 # Bowel Movements 1 Laboratory Tests Test 05/15/20 16:35 05/16/20 04:00 POC Whole Blood Glucose 244 MG/DL (74-106) H White Blood Count 10.4 K/UL (4.8-10.8) Red Blood Count 4.26 M/UL (4.20-5.40) Hemoglobin 12.5 G/DL (12.0-16.0) Hematocrit 36.5 % (37.0-47.0) L Mean Corpuscular Volume 86 FL (80-99) Mean Corpuscular Hemoglobin 29.2 PG (27.0-31.0) Mean Corpuscular Hemoglobin Concent 34.2 G/DL (32.0-36.0) Red Cell Distribution Width 12.7 % (11.6-14.8) Platelet Count 466 K/UL (150-450) H Mean Platelet Volume 6.1 FL (6.5-10.1) L Neutrophils (%) (Auto) 65.5 % (45.0-75.0) Lymphocytes (%) (Auto) 26.1 % (20.0-45.0) Monocytes (%) (Auto) 7.8 % (1.0-10.0) Eosinophils (%) (Auto) 0.3 % (0.0-3.0) Basophils (%) (Auto) 0.4 % (0.0-2.0) Sodium Level 137 MMOL/L (136-145) Potassium Level 4.1 MMOL/L (3.5-5.1) Chloride Level 103 MMOL/L (98-107) Carbon Dioxide Level 27 MMOL/L (21-32) Anion Gap 8 mmol/L (5-15) Blood Urea Nitrogen 19 mg/dL (7-18) H Creatinine 0.7 MG/DL (0.55-1.30) Estimat Glomerular Filtration Rate > 60 mL/min (>60) Glucose Level 102 MG/DL (74-106) Calcium Level 8.4 MG/DL (8.5-10.1) L Phosphorus Level 3.7 MG/DL (2.5-4.9) Magnesium Level 2.0 MG/DL (1.8-2.4) Total Bilirubin 0.5 MG/DL (0.2-1.0) Direct Bilirubin < 0.1 MG/DL (0.0-0.3) Aspartate Amino Transf (AST/SGOT) 37 U/L (15-37) Alanine Aminotransferase (ALT/SGPT) 50 U/L (12-78) Alkaline Phosphatase 39 U/L (46-116) L Total Protein 6.5 G/DL (6.4-8.2) Albumin 2.7 G/DL (3.4-5.0) L Globulin 3.8 g/dL Albumin/Globulin Ratio 0.7 (1.0-2.7) L Objective HEAD AND NECK: no JVD. LUNGS: Coarse rhonchi. CARDIOVASCULAR: regular S1 and S2 with no gallop. ABDOMEN: Soft. EXTREMITIES: No pitting edema. Mike Easton MD May 16, 2020 11:34
[2020-05-16 12:00] VITALS: BP 92/54
--- NOTE | 2020-05-16 15:24 | Pulmonology Progress Note ---
Subjective ROS Limited/Unobtainable: No Interval Events: now on 6 L NC saturating 94-96% Constitutional: Denies: fever, fatigue HEENT: Repors: no symptoms Respiratory: Reports: no symptoms; Denies: shortness of breath, dyspnea at rest Cardiovascular: Reports: no symptoms Gastrointestinal/Abdominal: Denies: nausea, vomiting, diarrhea Genitourinary: Reports: no symptoms Psychiatric: Denies: depression Skin: Denies: rash Musculoskeletal: Denies: pain Allergies: Coded Allergies: PENICILLIN G (Verified Allergy, Mild, RESPIRATORY DISTRESS, 09/16/09) Objective Last 24 Hour Vital Signs Date Time Temp Pulse Resp B/P (MAP) Pulse Ox O2 Delivery O2 Flow Rate FiO2 05/16/20 10:57 55 132/64 05/16/20 04:00 97.2 56 20 110/58 (75) 95 05/16/20 04:00 55 05/16/20 01:43 42 05/16/20 00:00 97.0 56 20 103/63 (76) 97 05/15/20 21:00 Non-Rebreather 15.0 05/15/20 20:11 96 Venturi Mask 14.0 55 05/15/20 20:00 97.9 60 20 99/60 (73) 95 05/15/20 20:00 50 05/15/20 16:00 51 05/15/20 16:00 96.6 55 20 98/58 (71) 96 Intake and Output 05/15/20 05/16/20 19:00 07:00 Intake Total 720 ml 250 ml Balance 720 ml 250 ml Intake Oral 720 ml 250 ml # Voids 3 2 # Bowel Movements 1 Objective 05/16 saturating 94-96% 6L NC 05/15 saturating 96-97% on 14L venturi mask 05/13 pt saturating 94-95% on 15L NRB 05/12/2020 pt in bed saturating well on Venturi mask 14L 05/11/2020 pt in bed; saturating well on low flow oxygen NC General Appearance: WD/WN, no acute distress HEENT: normocephalic Respiratory: chest wall non-tender, crackles/rales - mild Cardiovascular: normal peripheral pulses, normal rate, no gallop/murmur Abdomen: soft, non tender Laboratory Tests 05/15/20 16:35: POC Whole Blood Glucose 244H 05/16/20 04:00: White Blood Count 10.4, Red Blood Count 4.26, Hemoglobin 12.5, Hematocrit 36.5L, Mean Corpuscular Volume 86, Mean Corpuscular Hemoglobin 29.2, Mean Corpuscular Hemoglobin Concent 34.2, Red Cell Distribution Width 12.7, Platelet Count 466H, Mean Platelet Volume 6.1L, Neutrophils (%) (Auto) 65.5, Lymphocytes (%) (Auto) 26.1, Monocytes (%) (Auto) 7.8, Eosinophils (%) (Auto) 0.3, Basophils (%) (Auto) 0.4, Sodium Level 137, Potassium Level 4.1, Chloride Level 103, Carbon Dioxide Level 27, Anion Gap 8, Blood Urea Nitrogen 19H, Creatinine 0.7, Estimat Glomerular Filtration Rate > 60, Glucose Level 102, Calcium Level 8.4L, Phosphorus Level 3.7, Magnesium Level 2.0, Total Bilirubin 0.5, Direct Bilirubin < 0.1, Aspartate Amino Transf (AST/SGOT) 37, Alanine Aminotransferase (ALT/SGPT) 50, Alkaline Phosphatase 39L, Total Protein 6.5, Albumin 2.7L, Globulin 3.8, Albumin/Globulin Ratio 0.7L 05/16/20 12:10: POC Whole Blood Glucose [Pending] Current Medications Medications (Trade) Dose Ordered Sig/Darcie Route PRN Reason Start Time Stop Time Status Last Admin Dose Admin Acetaminophen (Tylenol) 650 mg Q4H PRN ORAL FEVER 05/09/20 03:45 06/08/20 03:44 Albuterol Sulfate (Proventil MDI) 2 puff Q4H PRN INH Shortness of Breath 05/10/20 21:30 08/08/20 21:29 Amlodipine Besylate (Norvasc) 5 mg DAILY ORAL 05/15/20 09:00 06/08/20 08:59 05/16/20 10:57 Dexamethasone Sodium Phosphate (Decadron 10mg/ ml Inj) 6 mg DAILY IV 05/10/20 09:00 05/19/20 08:59 05/16/20 09:58 Dextrose (Dextrose 50%) 25 ml Q30M PRN IV Hypoglycemia 05/09/20 04:00 08/07/20 03:59 Dextrose (Dextrose 50%) 50 ml Q30M PRN IV Hypoglycemia 05/09/20 04:00 08/07/20 03:59 Docusate Sodium (Colace) 100 mg EVERY 12 HOURS ORAL 05/09/20 09:00 06/08/20 08:59 05/16/20 09:59 Enoxaparin Sodium (Lovenox) 40 mg Q24H SUBQ 05/10/20 09:00 08/08/20 08:59 05/16/20 09:59 Famotidine (Pepcid) 20 mg DAILY ORAL 05/11/20 21:15 08/09/20 21:14 05/16/20 09:57 Guaifenesin/ Dextromethorphan (Robitussin DM Syrup) 10 ml Q4H PRN ORAL For Cough 05/10/20 03:30 08/08/20 03:29 05/12/20 23:59 Insulin Aspart (NovoLOG) BEFORE MEALS AND HS SUBQ 05/09/20 06:30 08/07/20 06:29 05/15/20 21:31 Levofloxacin 150 ml @ 100 mls/hr Q24H IVPB 05/12/20 16:00 05/17/20 16:00 05/15/20 15:11 Magnesium Hydroxide (Mom) 30 ml HSPRN PRN ORAL Constipation 05/09/20 03:45 06/08/20 03:44 Pantoprazole (Protonix) 40 mg ACBREAKFAST ORAL 05/09/20 06:30 06/08/20 06:29 05/16/20 06:51 Remdesivir 100 mg/ Sodium Chloride 250 ml @ 250 mls/hr Q24H IV 05/13/20 16:00 05/16/20 16:59 05/15/20 16:30 Vancomycin HCl 250 ml @ 166.667 mls/hr Q8H IVPB 05/16/20 12:00 05/21/20 11:59 05/16/20 14:25 Vancomycin HCl (Vanco pharmacy to dose) 1 ea DAILY PRN MISC Per rx protocol 05/12/20 11:45 06/11/20 11:44 Zolpidem Tartrate (Ambien) 5 mg HSPRN ORAL 05/11/20 21:15 05/18/20 21:14 05/15/20 22:49 Assessment/Plan Assessment/Plan 1. COVID-19 pneumonia. - on decadron - on remdesivir per ID - CXR 05/12 shows worsening right, new left infiltrates likely focal pneumonia - CXR 05/14 Mild improvement when compared to 05/12 - s/p one time dose lasix - On Levaquin and IV Vanco as well 2. Elevated inflammatory markers - CTA chest 05/12 neg for PE 3. History of hypertension. - on amlodipine - on clonidine prn 4. Diabetes mellitus. 5. Respiratory distress. - cont supplemental oxygen - now on 6 L NC saturating 94-96% - cont weaning down as tolerated 6. Leukocytosis; improved DVT ppx We will follow carefully. The care for this patient was discussed with my supervising physician. Time spent for this case was approximately 31 minutes. Alejandro Mckenna May 16, 2020 15:24 Olivier Lindsay MD May 16, 2020 17:38
[2020-05-16 16:00] VITALS: BP 104/64
[2020-05-16] MEDS: Maintenance Dose:Remdesivir 100mg/NS 230ml x 4 Doses IV SCH ×2 (16:33)
--- NOTE | 2020-05-16 17:09 | Infectious Diseases Prog Note ---
Assessment/Plan Assessment/Plan A) 1) covid-19 with pna, ? cap, hypoxia 2) DM, HTN 3) sh-neg, FH-nc, mar noted 4) allergies - pcn 5) d/w RN 6) notes and records noted P) 1) continue dexamethasone, finish remdesivir, levfloxacin and vancomycin 2) monitor respiratory status 3) monitor labs and chest x-ray 4) d/w primary team 5) clinically improved, chest x-ray - 05/15/20 - improved Subjective Constitutional: Reports: fatigue; Denies: fever HEENT: Reports: congestion - less Respiratory: Reports: shortness of breath - less Cardiovascular: Denies: chest pain Gastrointestinal/Abdominal: Denies: nausea, vomiting, diarrhea Genitourinary: Reports: other - no ayoub Neurologic: Denies: headache Psychiatric: Denies: depression Skin: Denies: rash Hematologic: Denies: bleeding Musculoskeletal: Denies: pain Allergies: Coded Allergies: PENICILLIN G (Verified Allergy, Mild, RESPIRATORY DISTRESS, 09/16/09) Objective Last 24 Hour Vital Signs Date Time Temp Pulse Resp B/P (MAP) Pulse Ox O2 Delivery O2 Flow Rate FiO2 05/16/20 12:00 97.9 59 22 92/54 (67) 97 05/16/20 10:57 55 132/64 05/16/20 08:00 98.1 75 20 132/64 (86) 98 05/16/20 04:00 97.2 56 20 110/58 (75) 95 05/16/20 04:00 55 05/16/20 01:43 42 05/16/20 00:00 97.0 56 20 103/63 (76) 97 05/15/20 21:00 Non-Rebreather 15.0 05/15/20 20:11 96 Venturi Mask 14.0 55 05/15/20 20:00 97.9 60 20 99/60 (73) 95 05/15/20 20:00 50 Height (Feet): 5 Height (Inches): 3.00 Weight (Pounds): 175 General Appearance: no acute distress HEENT: normocephalic, atraumatic, anicteric, mucous membranes moist Respiratory/Chest: no accessory muscle use, crackles/rales, rhonchi - bilaterally Cardiovascular: normal rate, regular rhythm, no gallop/murmur, no JVD Abdomen: normal bowel sounds, soft, non tender, no organomegaly, non distended Genitourinary: other - no ayoub Extremities: no cyanosis Skin: no rash Neurologic/Psychiatric: trauma registrar II-XII grossly normal, alert, oriented x 3, responsive Lymphatic: no neck adenopathy Musculoskeletal: no effusion CT chest - 05/12/20 - Impression: Negative for evidence of acute pulmonary embolus Extensive bilateral infiltrates, likely multifocal pneumonia and quite likely viral Mild cardiomegaly Fatty liver, also previously reported Chest x-ray - 05/15/20 - FINDINGS/IMPRESSION: Patchy bilateral airspace consolidations, consistent with multifocal infiltrate. Mild improvement when compared to May 12, 2020. Follow- up chest rating up recommended. Otherwise, stable exam. Dictated By: Mike Hargrove M.D. Electronically Signed By:Mike Hargrove M.D. Signed Date/Time 05/15/20 0952 Microbiology Date/Time Source Procedure Growth Status 05/08/20 23:19 Blood Blood Culture - Final NO GROWTH AFTER 5 DAYS Complete Laboratory Tests Test 05/16/20 04:00 05/16/20 12:10 05/16/20 16:48 White Blood Count 10.4 K/UL (4.8-10.8) Red Blood Count 4.26 M/UL (4.20-5.40) Hemoglobin 12.5 G/DL (12.0-16.0) Hematocrit 36.5 % (37.0-47.0) L Mean Corpuscular Volume 86 FL (80-99) Mean Corpuscular Hemoglobin 29.2 PG (27.0-31.0) Mean Corpuscular Hemoglobin Concent 34.2 G/DL (32.0-36.0) Red Cell Distribution Width 12.7 % (11.6-14.8) Platelet Count 466 K/UL (150-450) H Mean Platelet Volume 6.1 FL (6.5-10.1) L Neutrophils (%) (Auto) 65.5 % (45.0-75.0) Lymphocytes (%) (Auto) 26.1 % (20.0-45.0) Monocytes (%) (Auto) 7.8 % (1.0-10.0) Eosinophils (%) (Auto) 0.3 % (0.0-3.0) Basophils (%) (Auto) 0.4 % (0.0-2.0) Sodium Level 137 MMOL/L (136-145) Potassium Level 4.1 MMOL/L (3.5-5.1) Chloride Level 103 MMOL/L (98-107) Carbon Dioxide Level 27 MMOL/L (21-32) Anion Gap 8 mmol/L (5-15) Blood Urea Nitrogen 19 mg/dL (7-18) H Creatinine 0.7 MG/DL (0.55-1.30) Estimat Glomerular Filtration Rate > 60 mL/min (>60) Glucose Level 102 MG/DL (74-106) Calcium Level 8.4 MG/DL (8.5-10.1) L Phosphorus Level 3.7 MG/DL (2.5-4.9) Magnesium Level 2.0 MG/DL (1.8-2.4) Total Bilirubin 0.5 MG/DL (0.2-1.0) Direct Bilirubin < 0.1 MG/DL (0.0-0.3) Aspartate Amino Transf (AST/SGOT) 37 U/L (15-37) Alanine Aminotransferase (ALT/SGPT) 50 U/L (12-78) Alkaline Phosphatase 39 U/L (46-116) L Total Protein 6.5 G/DL (6.4-8.2) Albumin 2.7 G/DL (3.4-5.0) L Globulin 3.8 g/dL Albumin/Globulin Ratio 0.7 (1.0-2.7) L POC Whole Blood Glucose Pending 227 MG/DL (74-106) H Current Medications Medications (Trade) Dose Ordered Sig/Darcie Route PRN Reason Start Time Stop Time Status Last Admin Dose Admin Acetaminophen (Tylenol) 650 mg Q4H PRN ORAL FEVER 05/09/20 03:45 06/08/20 03:44 Albuterol Sulfate (Proventil MDI) 2 puff Q4H PRN INH Shortness of Breath 05/10/20 21:30 08/08/20 21:29 Amlodipine Besylate (Norvasc) 5 mg DAILY ORAL 05/15/20 09:00 06/08/20 08:59 05/16/20 10:57 Dexamethasone Sodium Phosphate (Decadron 10mg/ ml Inj) 6 mg DAILY IV 05/10/20 09:00 05/19/20 08:59 05/16/20 09:58 Dextrose (Dextrose 50%) 25 ml Q30M PRN IV Hypoglycemia 05/09/20 04:00 08/07/20 03:59 Dextrose (Dextrose 50%) 50 ml Q30M PRN IV Hypoglycemia 05/09/20 04:00 08/07/20 03:59 Docusate Sodium (Colace) 100 mg EVERY 12 HOURS ORAL 05/09/20 09:00 06/08/20 08:59 05/16/20 09:59 Enoxaparin Sodium (Lovenox) 40 mg Q24H SUBQ 05/10/20 09:00 08/08/20 08:59 05/16/20 09:59 Famotidine (Pepcid) 20 mg DAILY ORAL 05/11/20 21:15 08/09/20 21:14 05/16/20 09:57 Guaifenesin/ Dextromethorphan (Robitussin DM Syrup) 10 ml Q4H PRN ORAL For Cough 05/10/20 03:30 08/08/20 03:29 05/12/20 23:59 Insulin Aspart (NovoLOG) BEFORE MEALS AND HS SUBQ 05/09/20 06:30 08/07/20 06:29 05/15/20 21:31 Levofloxacin 150 ml @ 100 mls/hr Q24H IVPB 05/12/20 16:00 05/17/20 16:00 05/15/20 15:11 Magnesium Hydroxide (Mom) 30 ml HSPRN PRN ORAL Constipation 05/09/20 03:45 06/08/20 03:44 Pantoprazole (Protonix) 40 mg ACBREAKFAST ORAL 05/09/20 06:30 06/08/20 06:29 05/16/20 06:51 Vancomycin HCl 250 ml @ 166.667 mls/hr Q8H IVPB 05/16/20 12:00 05/21/20 11:59 05/16/20 14:25 Vancomycin HCl (Vanco pharmacy to dose) 1 ea DAILY PRN MISC Per rx protocol 05/12/20 11:45 06/11/20 11:44 Zolpidem Tartrate (Ambien) 5 mg HSPRN ORAL 05/11/20 21:15 05/18/20 21:14 05/15/20 22:49 Vicente Yang MD May 16, 2020 17:09
--- NOTE | 2020-05-16 19:55 | General Progress Note ---
Subjective Allergies: Coded Allergies: PENICILLIN G (Verified Allergy, Mild, RESPIRATORY DISTRESS, 09/16/09) Subjective NO acute events overnight per nursing. Patient continues to feel better. Saturating 98-99% on Venturi mask still, 15L. Feeling more energy every day.SOB much improving. D/w nursing to attempt to wean to nasal cannula. Still feels short of breath with movement. Review of systems: Constitutional: Denies: chills, diaphoresis, fever, malaise, weakness, HEENT: Denies: eye pain, blurred vision, double vision, ear pain, nose pain, throat pain, Cardiovascular: Denies: chest pain, edema, lightheadedness, palpitations Respiratory: See HPI Gastrointestinal/Abdominal: Denies: abdominal pain, black stools, blood in stool, constipation, diarrhea, nausea, poor fluid intake vomiting, other Genitourinary: Denies: burning, discharge, frequency, Neurologic/Psychiatric: Denies: headache, numbness, paresthesia, new weakness, other Endocrine: Denies: excessive sweating, flushing, intolerance to cold, MSK: denies joint pains, swelling, stiffness Hematologic/Lymphatic: Denies: anemia, easy bleeding, easy bruising, Objective Last 24 Hour Vital Signs Date Time Temp Pulse Resp B/P (MAP) Pulse Ox O2 Delivery O2 Flow Rate FiO2 05/16/20 12:00 97.9 59 22 92/54 (67) 97 05/16/20 10:57 55 132/64 05/16/20 09:00 Non-Rebreather 15.0 05/16/20 08:00 98.1 75 20 132/64 (86) 98 05/16/20 04:00 97.2 56 20 110/58 (75) 95 05/16/20 04:00 55 05/16/20 01:43 42 05/16/20 00:00 97.0 56 20 103/63 (76) 97 05/15/20 21:00 Non-Rebreather 15.0 05/15/20 20:11 96 Venturi Mask 14.0 55 05/15/20 20:00 97.9 60 20 99/60 (73) 95 05/15/20 20:00 50 Intake and Output 05/15/20 05/16/20 19:00 07:00 Intake Total 720 ml 250 ml Balance 720 ml 250 ml Intake Oral 720 ml 250 ml # Voids 3 2 # Bowel Movements 1 Laboratory Tests 05/16/20 04:00: White Blood Count 10.4, Red Blood Count 4.26, Hemoglobin 12.5, Hematocrit 36.5L, Mean Corpuscular Volume 86, Mean Corpuscular Hemoglobin 29.2, Mean Corpuscular Hemoglobin Concent 34.2, Red Cell Distribution Width 12.7, Platelet Count 466H, Mean Platelet Volume 6.1L, Neutrophils (%) (Auto) 65.5, Lymphocytes (%) (Auto) 26.1, Monocytes (%) (Auto) 7.8, Eosinophils (%) (Auto) 0.3, Basophils (%) (Auto) 0.4, Sodium Level 137, Potassium Level 4.1, Chloride Level 103, Carbon Dioxide Level 27, Anion Gap 8, Blood Urea Nitrogen 19H, Creatinine 0.7, Estimat Glomerular Filtration Rate > 60, Glucose Level 102, Calcium Level 8.4L, Phosphorus Level 3.7, Magnesium Level 2.0, Total Bilirubin 0.5, Direct Bilirubin < 0.1, Aspartate Amino Transf (AST/SGOT) 37, Alanine Aminotransferase (ALT/SGPT) 50, Alkaline Phosphatase 39L, Total Protein 6.5, Albumin 2.7L, Globulin 3.8, Albumin/Globulin Ratio 0.7L 05/16/20 12:10: POC Whole Blood Glucose [Pending] 05/16/20 16:48: POC Whole Blood Glucose 227H Height (Feet): 5 Height (Inches): 3.00 Weight (Pounds): 175 Objective General: WDWN female in NAD, A&O x 4. On venturi mask now. Stable HEENT: Normocephalic cephalic atraumatic, pupils equal round reactive to light and accommodation, nares patent and no symmetrical, no tonsillar exudates, mucous membranes moist CV: Regular rate regular rhythm, no murmurs, rubs, or gallops Pulm: Lungs coarse breath sounds bilaterally (Continues to improve) No wheezes, or rales GI: Soft, nontender, nondistended, bowel sounds present Neuro: CN 2-12 intact bilaterally, no focal signs. Ext: No lower extremity edema bilaterally Skin: no rashes lesions or ulcers Msk: Joints symmetrical in upper extremity and lower extremity bilaterally, no joint swelling. Lymph: No lymphadenopathy in upper extremity and lower extremity Assessment/Plan Assessment/Plan: #COVID19 PNA #Sepsis due to COVID #Superimposed bacterial pneumonia CAP vs. HAP #Elevated inflammatory markers #elevated d-dimer: negative duplex and CT angio for PE #Acute hypoxic respiratory failure due to COVID - Admit to [facility] - Apply supplemental oxygenation as needed - decadron 6mg IV for 10days (05/09 - ) - Remdesivir per ID (05/12 - ) - Continue levaquin 750mg IV daily (05/09 - ) - Vanc per pharmacy (05/12 - ) - Abx per ID - follow cultures: NGTD - CT angio 05/12: neg for PE. Worsening infiltrates - ID consulted: Dr. Mi - Pulm consulted: D/w ALIA Allen and Dr. Neftali GARCIA reviewed - wean O2. D/w Nursing who will also discuss with RT. Will attempt again today #asymptomatic bradycardia - tele - Appreciate cardiology consult: Dr. Easton #DMT2 - SSI - Accuchecks - Hypoglycemia protocol Holding home Metformin #HTN - Norvasc 10mg daily FENPPX DVTPPX: Lovenox Diet: Diabetic PT/OT: pending improvement Code status: Full Dispo: home vs. rehab Reason for Continued Hospitalization: hypoxia MIPS ([employer]-based Incentive Payment System) Applicable CPT: 90339, 51628 CHECK ALL THAT ARE MET: [] Measure #5 (CHF): All ages. Prescribe RENE/ARB upon discharge for patients with left ventricular systolic dysfunction. If not, the reason is clearly documented in the medical chart [] Measure #8 (CHF): All ages. Prescribe a beta nay upon discharge for patients with left ventricular systolic dysfunction. If not, the reason is clearly documented in the medical chart. [x] Measure #47: Advance care plan or surrogate decision maker documented in the medical record. [x] Measure #130 The provider has documented, updated, or reviewed the patients current medication list and has documented it in the patients note. [x] Measure #374 (All): Send report to referring provider. [] Measure #407(Sepsis due to MSSA bacteremia): Age 18+ Patient treated with a beta-lactam antibiotic (Nafcillin, Oxacillin or Cefazolin) as definitive therapy. MEDICAL COMPLEXITYHigh complexity medical decision making (need 2/3 categories)Problem - need 4 points [x]Acute/new problem with new plan for workup (4 points, 1 max) [] Acute/new problem without additional workup (3 points, 1 max) [x] Unstable chronic problem actively being managed (2 point each, 2 max) [x] Stable chronic problem actively being managed (1 point each, 2 max) [] Self-limited/transient process (constipation, muscle ache, etc) (1 point each, 2 max) Data - need 4 points [x] Reviewed labs/imaging studies (1 points, 2 max) [x] Independent review of imaging (EKG, xrays, etc) (2 points, 2 max) [x] Discussed case with consult/other MD/RN (2 points, 2 max) High Risk - qualify if have one of the following: [] Severe exacerbation of acute problem, acute mental status change, IV narcotics, monitoring drug levels (vancomycin, INR, tacrolimus etc) I spent 38 minutes on this patient's case, and 22 mins was dedicated to counse ling and/or care coordination. Discussed with Patti MISHRA, RN at bedside. Time of note may not reflect time of encounter Louis Davis D.O. May 16, 2020 19:55
[2020-05-16 20:00] VITALS: BP 102/60
[2020-05-17] VITALS: BP 106/57
[2020-05-17 04:00] VITALS: BP 107/61
[2020-05-17] MEDS: NovoLOG Insulin Flexpen SUBQ SCH ×4 (06:33→21:00)
[2020-05-17 08:00] VITALS: BP 110/65
[2020-05-17] MEDS: dexAMETHasone 10mg/ml Inj IV SCH (09:19)
[2020-05-17] MEDS: Docusate 100mg cap ORAL SCH ×2 (09:21→22:21)
[2020-05-17] MEDS: Enoxaparin 40mg Inj SUBQ SCH (09:21)
[2020-05-17 10:25] LABS: BASOPHILS % (AUTO) 0.8 % (0.0-2.0); EOSINOPHILS % (AUTO) 0.7 % (0.0-3.0); HEMATOCRIT 34.9 % (37.0-47.0); HEMOGLOBIN 12.2 G/DL (12.0-16.0); LYMPHOCYTES % (AUTO) 30.2 % (20.0-45.0); MEAN CORPUSCULAR VOLUME 83 FL (80-99); MONOCYTES % (AUTO) 8.7 % (1.0-10.0); NEUTROPHILS % (AUTO) 59.7 % (45.0-75.0); PLATELET COUNT 491 K/UL (150-450); RED BLOOD COUNT 4.21 M/UL (4.20-5.40); RED CELL DISTRIBUTION WIDTH 12.7 % (11.6-14.8)
[2020-05-17 10:42] LABS: ALANINE AMINOTRANSFERASE 51 U/L (12-78); ALBUMIN 2.7 G/DL (3.4-5.0); ALBUMIN/GLOBULIN RATIO 0.7 (1.0-2.7); ALKALINE PHOSPHATASE 42 U/L (46-116); ANION GAP 5 mmol/L (5-15); ASPARTATE AMINO TRANSFERASE 23 U/L (15-37); BILIRUBIN,TOTAL 0.4 MG/DL (0.2-1.0); BLOOD UREA NITROGEN 24 mg/dL (7-18); CALCIUM 8.1 MG/DL (8.5-10.1); CARBON DIOXIDE 28 MMOL/L (21-32); CHLORIDE 102 MMOL/L (98-107); CREATININE 0.8 MG/DL (0.55-1.30); POTASSIUM 3.7 MMOL/L (3.5-5.1); SODIUM 135 MMOL/L (136-145)
[2020-05-17 11:08] LABS: PHOSPHORUS 3.6 MG/DL (2.5-4.9)
--- NOTE | 2020-05-17 11:10 | Cardiac Electrophysiology PN ---
Assessment/Plan Assessment/Plan 1. Hypertension and bradycardia. DC p.r.n. clonidine for bradycardia. On amlodipine to 5 mg daily. 2. Bradycardia. Off any sinus or AV kathi blocking agents, may be due to COVID. Watch on tele.DC Clonidine prn 3. COVID pneumonia, on dexamethasone and vancomycin on 4 liter NC 4. Diabetes, on insulin. Subjective Subjective Alert in NAD on 4 liter NC. HR goes as low as 41 in NAD Objective Last 24 Hour Vital Signs Date Time Temp Pulse Resp B/P (MAP) Pulse Ox O2 Delivery O2 Flow Rate FiO2 05/17/20 09:29 94 Nasal Cannula 4.0 36 05/17/20 09:20 66 110/65 05/17/20 08:00 98.6 66 24 110/65 (80) 98 05/17/20 06:00 41 05/17/20 04:00 98.5 50 23 107/61 (76) 99 05/17/20 00:00 60 05/17/20 00:00 96.5 51 20 106/57 (73) 99 05/16/20 21:00 Nasal Cannula 6.0 05/16/20 20:00 98.6 50 24 102/60 (74) 99 05/16/20 20:00 60 05/16/20 16:00 97.9 59 22 104/64 (77) 95 05/16/20 16:00 57 05/16/20 12:00 50 05/16/20 12:00 97.9 59 22 92/54 (67) 97 Intake and Output 05/16/20 05/17/20 19:00 07:00 # Voids 3 3 # Bowel Movements 1 Laboratory Tests Test 05/16/20 12:10 05/16/20 16:48 05/16/20 22:01 05/17/20 09:55 POC Whole Blood Glucose Pending 227 MG/DL (74-106) H 223 MG/DL (74-106) H White Blood Count 11.0 K/UL (4.8-10.8) H Red Blood Count 4.21 M/UL (4.20-5.40) Hemoglobin 12.2 G/DL (12.0-16.0) Hematocrit 34.9 % (37.0-47.0) L Mean Corpuscular Volume 83 FL (80-99) Mean Corpuscular Hemoglobin 28.9 PG (27.0-31.0) Mean Corpuscular Hemoglobin Concent 34.8 G/DL (32.0-36.0) Red Cell Distribution Width 12.7 % (11.6-14.8) Platelet Count 491 K/UL (150-450) H Mean Platelet Volume 6.0 FL (6.5-10.1) L Neutrophils (%) (Auto) 59.7 % (45.0-75.0) Lymphocytes (%) (Auto) 30.2 % (20.0-45.0) Monocytes (%) (Auto) 8.7 % (1.0-10.0) Eosinophils (%) (Auto) 0.7 % (0.0-3.0) Basophils (%) (Auto) 0.8 % (0.0-2.0) Sodium Level 135 MMOL/L (136-145) L Potassium Level 3.7 MMOL/L (3.5-5.1) Chloride Level 102 MMOL/L (98-107) Carbon Dioxide Level 28 MMOL/L (21-32) Anion Gap 5 mmol/L (5-15) Blood Urea Nitrogen 24 mg/dL (7-18) H Creatinine 0.8 MG/DL (0.55-1.30) Estimat Glomerular Filtration Rate > 60 mL/min (>60) Glucose Level 162 MG/DL (74-106) H Calcium Level 8.1 MG/DL (8.5-10.1) L Phosphorus Level Pending Magnesium Level Pending Total Bilirubin 0.4 MG/DL (0.2-1.0) Aspartate Amino Transf (AST/SGOT) 23 U/L (15-37) Alanine Aminotransferase (ALT/SGPT) 51 U/L (12-78) Alkaline Phosphatase 42 U/L (46-116) L Total Protein 6.4 G/DL (6.4-8.2) Albumin 2.7 G/DL (3.4-5.0) L Globulin 3.7 g/dL Albumin/Globulin Ratio 0.7 (1.0-2.7) L Objective HEAD AND NECK: no JVD. LUNGS: Coarse rhonchi. CARDIOVASCULAR: regular S1 and S2 with no gallop. ABDOMEN: Soft. EXTREMITIES: No pitting edema. Mike Easton MD May 17, 2020 11:10
[2020-05-17 12:00] VITALS: BP 105/62
--- NOTE | 2020-05-17 13:54 | Pulmonology Progress Note ---
Subjective ROS Limited/Unobtainable: No Interval Events: now on 4 L NC saturating well; bradycardia noted Constitutional: Denies: fever, fatigue HEENT: Repors: no symptoms Respiratory: Reports: no symptoms; Denies: shortness of breath, dyspnea at rest Cardiovascular: Reports: no symptoms Gastrointestinal/Abdominal: Denies: nausea, vomiting, diarrhea Genitourinary: Reports: no symptoms Psychiatric: Denies: depression Skin: Denies: rash Musculoskeletal: Denies: pain Allergies: Coded Allergies: PENICILLIN G (Verified Allergy, Mild, RESPIRATORY DISTRESS, 09/16/09) Objective Last 24 Hour Vital Signs Date Time Temp Pulse Resp B/P (MAP) Pulse Ox O2 Delivery O2 Flow Rate FiO2 05/17/20 12:00 98.1 63 22 105/62 (76) 97 05/17/20 12:00 56 05/17/20 10:00 Non-Rebreather 4.0 05/17/20 09:29 94 Nasal Cannula 4.0 36 05/17/20 09:00 Non-Rebreather 15.0 05/17/20 09:00 63 105/62 05/17/20 08:00 58 05/17/20 08:00 98.6 66 24 110/65 (80) 98 05/17/20 06:00 41 05/17/20 04:00 98.5 50 23 107/61 (76) 99 05/17/20 00:00 60 05/17/20 00:00 96.5 51 20 106/57 (73) 99 05/16/20 21:00 Nasal Cannula 6.0 05/16/20 20:00 98.6 50 24 102/60 (74) 99 05/16/20 20:00 60 05/16/20 16:00 97.9 59 22 104/64 (77) 95 05/16/20 16:00 57 Intake and Output 05/16/20 05/17/20 19:00 07:00 # Voids 3 3 # Bowel Movements 1 Objective 05/17 now on 4L NC 05/16 saturating 94-96% 6L NC 05/15 saturating 96-97% on 14L venturi mask 05/13 pt saturating 94-95% on 15L NRB 05/12/2020 pt in bed saturating well on Venturi mask 14L 05/11/2020 pt in bed; saturating well on low flow oxygen NC General Appearance: WD/WN, no acute distress HEENT: normocephalic Respiratory: chest wall non-tender, crackles/rales - mild Cardiovascular: normal peripheral pulses, normal rate, no gallop/murmur Abdomen: soft, non tender Laboratory Tests 05/16/20 16:48: POC Whole Blood Glucose 227H 05/16/20 22:01: POC Whole Blood Glucose 223H 05/17/20 09:55: White Blood Count 11.0H, Red Blood Count 4.21, Hemoglobin 12.2, Hematocrit 34.9L , Mean Corpuscular Volume 83, Mean Corpuscular Hemoglobin 28.9, Mean Corpuscular Hemoglobin Concent 34.8, Red Cell Distribution Width 12.7, Platelet Count 491H, Mean Platelet Volume 6.0L, Neutrophils (%) (Auto) 59.7, Lymphocytes (%) (Auto) 30.2, Monocytes (%) (Auto) 8.7, Eosinophils (%) (Auto) 0.7, Basophils (%) (Auto) 0.8, Sodium Level 135L, Potassium Level 3.7, Chloride Level 102, Carbon Dioxide Level 28, Anion Gap 5, Blood Urea Nitrogen 24H, Creatinine 0.8, Estimat Glomerular Filtration Rate > 60, Glucose Level 162H, Calcium Level 8.1L, Phosphorus Level 3.6, Magnesium Level 2.1, Total Bilirubin 0.4, Aspartate Amino Transf (AST/SGOT) 23, Alanine Aminotransferase (ALT/SGPT) 51, Alkaline Phosphatase 42L, Total Protein 6.4, Albumin 2.7L, Globulin 3.7, Albumin/Globulin Ratio 0.7L Current Medications Medications (Trade) Dose Ordered Sig/Darcie Route PRN Reason Start Time Stop Time Status Last Admin Dose Admin Acetaminophen (Tylenol) 650 mg Q4H PRN ORAL FEVER 05/09/20 03:45 06/08/20 03:44 Albuterol Sulfate (Proventil MDI) 2 puff Q4H PRN INH Shortness of Breath 05/10/20 21:30 08/08/20 21:29 Amlodipine Besylate (Norvasc) 5 mg DAILY ORAL 05/15/20 09:00 06/08/20 08:59 05/16/20 10:57 Dexamethasone Sodium Phosphate (Decadron 10mg/ ml Inj) 6 mg DAILY IV 05/10/20 09:00 05/19/20 08:59 05/17/20 09:19 Dextrose (Dextrose 50%) 25 ml Q30M PRN IV Hypoglycemia 05/09/20 04:00 08/07/20 03:59 Dextrose (Dextrose 50%) 50 ml Q30M PRN IV Hypoglycemia 05/09/20 04:00 08/07/20 03:59 Docusate Sodium (Colace) 100 mg EVERY 12 HOURS ORAL 05/09/20 09:00 06/08/20 08:59 05/17/20 09:21 Enoxaparin Sodium (Lovenox) 40 mg Q24H SUBQ 05/10/20 09:00 08/08/20 08:59 05/17/20 09:21 Famotidine (Pepcid) 20 mg DAILY ORAL 05/11/20 21:15 08/09/20 21:14 05/17/20 09:21 Guaifenesin/ Dextromethorphan (Robitussin DM Syrup) 10 ml Q4H PRN ORAL For Cough 05/10/20 03:30 08/08/20 03:29 05/12/20 23:59 Insulin Aspart (NovoLOG) BEFORE MEALS AND HS SUBQ 05/09/20 06:30 08/07/20 06:29 05/17/20 06:33 Levofloxacin 150 ml @ 100 mls/hr Q24H IVPB 05/12/20 16:00 05/17/20 16:00 05/16/20 18:08 Magnesium Hydroxide (Mom) 30 ml HSPRN PRN ORAL Constipation 05/09/20 03:45 06/08/20 03:44 Pantoprazole (Protonix) 40 mg ACBREAKFAST ORAL 05/09/20 06:30 06/08/20 06:29 05/17/20 06:33 Zolpidem Tartrate (Ambien) 5 mg HSPRN ORAL 05/11/20 21:15 05/18/20 21:14 05/15/20 22:49 Assessment/Plan Assessment/Plan 1. COVID-19 pneumonia. - on decadron - completed remdesivir, Vanco - CXR 05/12 shows worsening right, new left infiltrates likely focal pneumonia - CXR 05/14 Mild improvement when compared to 05/12 - s/p one time dose lasix - still on Levaquin 2. Elevated inflammatory markers - CTA chest 05/12 neg for PE 3. History of hypertension. - on amlodipine - clonidine prn dc'd for bradycardia 4. Diabetes mellitus. 5. Respiratory distress. - now on 4 L NC saturating 94-96% - cont weaning down as tolerated 6. Leukocytosis; improved DVT ppx We will follow carefully. The care for this patient was discussed with my supervising physician. Time spent for this case was approximately 31 minutes. Alejandro Mckenna May 17, 2020 13:54 Olivier Lindsay MD May 17, 2020 15:12
[2020-05-17 16:00] VITALS: BP 115/65
--- NOTE | 2020-05-17 17:18 | General Progress Note ---
Subjective Date patient seen: May 17, 2020 ROS Limited/Unobtainable: No Allergies: Coded Allergies: PENICILLIN G (Verified Allergy, Mild, RESPIRATORY DISTRESS, 09/16/09) Subjective No acute events overnight per nursing. Patient improving. Now off venturi mask and on NC. Less SOB today, more energy today. Still SOB while moving, especially to commode. Review of systems: Constitutional: Denies: chills, diaphoresis, fever, malaise, weakness, HEENT: Denies: eye pain, blurred vision, double vision, ear pain, nose pain, throat pain, Cardiovascular: Denies: chest pain, edema, lightheadedness, palpitations Respiratory: See HPI Gastrointestinal/Abdominal: Denies: abdominal pain, black stools, blood in stool, constipation, diarrhea, nausea, poor fluid intake vomiting, other Genitourinary: Denies: burning, discharge, frequency, Neurologic/Psychiatric: Denies: headache, numbness, paresthesia, new weakness, other Endocrine: Denies: excessive sweating, flushing, intolerance to cold, MSK: denies joint pains, swelling, stiffness Hematologic/Lymphatic: Denies: anemia, easy bleeding, easy bruising, Objective Last 24 Hour Vital Signs Date Time Temp Pulse Resp B/P (MAP) Pulse Ox O2 Delivery O2 Flow Rate FiO2 05/17/20 12:00 98.1 63 22 105/62 (76) 97 05/17/20 12:00 56 05/17/20 10:00 Non-Rebreather 4.0 05/17/20 09:29 94 Nasal Cannula 4.0 36 05/17/20 09:00 Non-Rebreather 15.0 05/17/20 09:00 63 105/62 05/17/20 08:00 58 05/17/20 08:00 98.6 66 24 110/65 (80) 98 05/17/20 06:00 41 05/17/20 04:00 98.5 50 23 107/61 (76) 99 05/17/20 00:00 60 05/17/20 00:00 96.5 51 20 106/57 (73) 99 05/16/20 21:00 Nasal Cannula 6.0 05/16/20 20:00 98.6 50 24 102/60 (74) 99 05/16/20 20:00 60 Intake and Output 05/16/20 05/17/20 19:00 07:00 # Voids 3 3 # Bowel Movements 1 Laboratory Tests 05/16/20 22:01: POC Whole Blood Glucose 223H 05/17/20 09:55: White Blood Count 11.0H, Red Blood Count 4.21, Hemoglobin 12.2, Hematocrit 34.9L , Mean Corpuscular Volume 83, Mean Corpuscular Hemoglobin 28.9, Mean Corpuscular Hemoglobin Concent 34.8, Red Cell Distribution Width 12.7, Platelet Count 491H, Mean Platelet Volume 6.0L, Neutrophils (%) (Auto) 59.7, Lymphocytes (%) (Auto) 30.2, Monocytes (%) (Auto) 8.7, Eosinophils (%) (Auto) 0.7, Basophils (%) (Auto) 0.8, Sodium Level 135L, Potassium Level 3.7, Chloride Level 102, Carbon Dioxide Level 28, Anion Gap 5, Blood Urea Nitrogen 24H, Creatinine 0.8, Estimat Glomerular Filtration Rate > 60, Glucose Level 162H, Calcium Level 8.1L, Phosphorus Level 3.6, Magnesium Level 2.1, Total Bilirubin 0.4, Aspartate Amino Transf (AST/SGOT) 23, Alanine Aminotransferase (ALT/SGPT) 51, Alkaline Phosphatase 42L, Total Protein 6.4, Albumin 2.7L, Globulin 3.7, Albumin/Globulin Ratio 0.7L Height (Feet): 5 Height (Inches): 3.00 Weight (Pounds): 175 Objective General: WDWN female in NAD, A&O x 4. On nasal cannula. Pleasant, conversant HEENT: Normocephalic cephalic atraumatic, pupils equal round reactive to light and accommodation, nares patent and no symmetrical, no tonsillar exudates, mucous membranes moist CV: Regular rate regular rhythm, no murmurs, rubs, or gallops Pulm: Lungs mildly coarse breath sounds bilaterally. No wheezes or rales GI: Soft, nontender, nondistended, bowel sounds present Neuro: CN 2-12 intact bilaterally, no focal signs. Ext: No lower extremity edema bilaterally Skin: no rashes lesions or ulcers Msk: Joints symmetrical in upper extremity and lower extremity bilaterally, no joint swelling. Lymph: No lymphadenopathy in upper extremity and lower extremity Assessment/Plan Assessment/Plan: #COVID19 PNA - improving #Sepsis due to COVID #Superimposed bacterial pneumonia CAP vs. HAP #Elevated inflammatory markers #elevated d-dimer: negative duplex and CT angio for PE #Acute hypoxic respiratory failure due to COVID - Admit to [place] [id number] floor - Apply supplemental oxygenation as needed - decadron 6mg IV for 10days (05/09 - ) - Remdesivir per ID (05/12 - ) - Continue levaquin 750mg IV daily (05/09 - ) - Vanc per pharmacy (05/12 - ) - Abx per ID - follow cultures: NGTD - CT angio 05/12: neg for PE. Worsening infiltrates - ID consulted: Dr. Mi - Pulm consulted: D/w ALIA Allen and Dr. Neftali GARCIA reviewed - wean O2 as tolerated. Now on NC. #asymptomatic bradycardia - tele - Appreciate cardiology consult: Dr. Easton #DMT2 - SSI - Accuchecks - Hypoglycemia protocol Holding home Metformin #HTN - Norvasc 10mg daily FENPPX DVTPPX: Lovenox Diet: Diabetic PT/OT: pending improvement Code status: Full Dispo: home with home health vs rehab Reason for Continued Hospitalization: hypoxia MIPS ([employer]centive Payment System) Applicable CPT: 17351, 07325 CHECK ALL THAT ARE MET: [] Measure #5 (CHF): All ages. Prescribe RENE/ARB upon discharge for patients with left ventricular systolic dysfunction. If not, the reason is clearly documented in the medical chart [] Measure #8 (CHF): All ages. Prescribe a beta nay upon discharge for patients with left ventricular systolic dysfunction. If not, the reason is clearly documented in the medical chart. [x] Measure #47: Advance care plan or surrogate decision maker documented in the medical record. [x] Measure #130 The provider has documented, updated, or reviewed the patients current medication list and has documented it in the patients note. [x] Measure #374 (All): Send report to referring provider. [] Measure #407(Sepsis due to MSSA bacteremia): Age 18+ Patient treated with a beta-lactam antibiotic (Nafcillin, Oxacillin or Cefazolin) as definitive therapy. MEDICAL COMPLEXITYHigh complexity medical decision making (need 2/3 categories)Problem - need 4 points [x]Acute/new problem with new plan for workup (4 points, 1 max) [] Acute/new problem without additional workup (3 points, 1 max) [x] Unstable chronic problem actively being managed (2 point each, 2 max) [x] Stable chronic problem actively being managed (1 point each, 2 max) [] Self-limited/transient process (constipation, muscle ache, etc) (1 point each, 2 max) Data - need 4 points [x] Reviewed labs/imaging studies (1 points, 2 max) [x] Independent review of imaging (EKG, xrays, etc) (2 points, 2 max) [x] Discussed case with consult/other MD/RN (2 points, 2 max) High Risk - qualify if have one of the following: [] Severe exacerbation of acute problem, acute mental status change, IV narcotics, monitoring drug levels (vancomycin, INR, tacrolimus etc) I spent 36 minutes on this patient's case, and 24 mins was dedicated to counseling and/or care coordination. Spoke to patient's family member who is a physician. Discussed with Patti MISHRA, RN at bedside. Time of note may not reflect time of encounter Skinny Masters M.D. May 17, 2020 17:18
[2020-05-17 20:00] VITALS: BP 100/60
[2020-05-17] MEDS: Zolpidem 5mg tab ORAL SCH (22:21)
[2020-05-18] VITALS: BP 107/60
[2020-05-18 04:00] VITALS: BP 110/66
[2020-05-18] MEDS: NovoLOG Insulin Flexpen SUBQ SCH ×4 (06:30→21:00)
[2020-05-18 08:00] VITALS: BP 111/74
[2020-05-18] MEDS: Enoxaparin 40mg Inj SUBQ SCH (09:34)
[2020-05-18] MEDS: dexAMETHasone 10mg/ml Inj IV SCH (09:34)
[2020-05-18] MEDS: Docusate 100mg cap ORAL SCH ×2 (09:34→21:51)
[2020-05-18 12:00] VITALS: BP 112/63
--- NOTE | 2020-05-18 12:06 | Pulmonology Progress Note ---
Subjective ROS Limited/Unobtainable: No Interval Events: now on 2 L saturating well; bradycardia noted Constitutional: Denies: fever, fatigue HEENT: Repors: no symptoms Respiratory: Reports: no symptoms; Denies: shortness of breath, dyspnea at rest Cardiovascular: Reports: no symptoms Gastrointestinal/Abdominal: Denies: nausea, vomiting, diarrhea Genitourinary: Reports: no symptoms Psychiatric: Denies: depression Skin: Denies: rash Musculoskeletal: Denies: pain Allergies: Coded Allergies: PENICILLIN G (Verified Allergy, Mild, RESPIRATORY DISTRESS, 09/16/09) Objective Last 24 Hour Vital Signs Date Time Temp Pulse Resp B/P (MAP) Pulse Ox O2 Delivery O2 Flow Rate FiO2 05/18/20 09:00 78 111/74 05/18/20 08:00 97.9 78 20 111/74 (86) 97 05/18/20 08:00 70 05/18/20 04:00 49 05/18/20 04:00 96.1 52 24 110/66 (81) 100 05/18/20 00:00 50 05/18/20 00:00 97.7 60 24 107/60 (76) 100 05/17/20 21:00 Nasal Cannula 2.0 05/17/20 20:00 95 Nasal Cannula 2.0 28 05/17/20 20:00 59 05/17/20 20:00 97.5 64 24 100/60 (73) 97 05/17/20 16:00 97.7 58 20 115/65 (82) 96 05/17/20 16:00 63 Intake and Output 05/17/20 05/18/20 19:00 07:00 Intake Total 360 ml Balance 360 ml Intake Oral 360 ml # Voids 3 3 # Bowel Movements 1 Objective 05/18 now on 2 L NC 05/17 now on 4L NC 05/16 saturating 94-96% 6L NC 05/15 saturating 96-97% on 14L venturi mask 05/13 pt saturating 94-95% on 15L NRB 05/12/2020 pt in bed saturating well on Venturi mask 14L 05/11/2020 pt in bed; saturating well on low flow oxygen NC General Appearance: WD/WN, no acute distress HEENT: normocephalic Respiratory: chest wall non-tender, crackles/rales - mild Cardiovascular: normal peripheral pulses, normal rate, no gallop/murmur Abdomen: soft, non tender Laboratory Tests 05/18/20 11:33: POC Whole Blood Glucose 167H Current Medications Medications (Trade) Dose Ordered Sig/Darcie Route PRN Reason Start Time Stop Time Status Last Admin Dose Admin Acetaminophen (Tylenol) 650 mg Q4H PRN ORAL FEVER 05/09/20 03:45 06/08/20 03:44 Albuterol Sulfate (Proventil MDI) 2 puff Q4H PRN INH Shortness of Breath 05/10/20 21:30 08/08/20 21:29 Amlodipine Besylate (Norvasc) 5 mg DAILY ORAL 05/15/20 09:00 06/08/20 08:59 05/16/20 10:57 Dexamethasone Sodium Phosphate (Decadron 10mg/ ml Inj) 6 mg DAILY IV 05/10/20 09:00 05/19/20 08:59 05/18/20 09:34 Dextrose (Dextrose 50%) 25 ml Q30M PRN IV Hypoglycemia 05/09/20 04:00 08/07/20 03:59 Dextrose (Dextrose 50%) 50 ml Q30M PRN IV Hypoglycemia 05/09/20 04:00 08/07/20 03:59 Docusate Sodium (Colace) 100 mg EVERY 12 HOURS ORAL 05/09/20 09:00 06/08/20 08:59 05/18/20 09:34 Enoxaparin Sodium (Lovenox) 40 mg Q24H SUBQ 05/10/20 09:00 08/08/20 08:59 05/18/20 09:34 Famotidine (Pepcid) 20 mg DAILY ORAL 05/11/20 21:15 08/09/20 21:14 05/18/20 09:34 Guaifenesin/ Dextromethorphan (Robitussin DM Syrup) 10 ml Q4H PRN ORAL For Cough 05/10/20 03:30 08/08/20 03:29 05/12/20 23:59 Insulin Aspart (NovoLOG) BEFORE MEALS AND HS SUBQ 05/09/20 06:30 08/07/20 06:29 05/17/20 17:13 Magnesium Hydroxide (Mom) 30 ml HSPRN PRN ORAL Constipation 05/09/20 03:45 06/08/20 03:44 Pantoprazole (Protonix) 40 mg ACBREAKFAST ORAL 05/09/20 06:30 06/08/20 06:29 05/18/20 05:47 Zolpidem Tartrate (Ambien) 5 mg HSPRN ORAL 05/11/20 21:15 05/18/20 21:14 05/17/20 22:21 Assessment/Plan Assessment/Plan 1. COVID-19 pneumonia. - on decadron - completed remdesivir, Vanco - CXR 05/12 shows worsening right, new left infiltrates likely focal pneumonia - CXR 05/14 Mild improvement when compared to 05/12 - s/p one time dose lasix - now off Levaquin 2. Elevated inflammatory markers - CTA chest 05/12 neg for PE 3. History of hypertension. - on amlodipine - clonidine prn dc'd for bradycardia 4. Diabetes mellitus. 5. Respiratory distress. - now on 2 L NC saturating well - cont weaning down as tolerated 6. Leukocytosis; improved DVT ppx We will follow carefully. The care for this patient was discussed with my supervising physician. Time spent for this case was approximately 31 minutes. Alejandro Mckenna May 18, 2020 12:06 Olivier Lindsay MD May 19, 2020 13:46
--- NOTE | 2020-05-18 13:29 | Cardiac Electrophysiology PN ---
Assessment/Plan Assessment/Plan 1. Hypertension and bradycardia. Off p.r.n. clonidine for bradycardia. On amlodipine to 5 mg daily. 2. Bradycardia. Off any sinus or AV kathi blocking agents, may be due to COVID. Watch on tele. Off Clonidine 3. COVID pneumonia, on dexamethasone and vancomycin on 4 liter NC 4. Diabetes, on insulin. Subjective Subjective Alert in NAD on 4 liter NC. HR goes as low as 47 in NAD Objective Last 24 Hour Vital Signs Date Time Temp Pulse Resp B/P (MAP) Pulse Ox O2 Delivery O2 Flow Rate FiO2 05/18/20 13:18 96 Nasal Cannula 2.0 28 05/18/20 09:00 78 111/74 05/18/20 08:00 97.9 78 20 111/74 (86) 97 05/18/20 08:00 70 05/18/20 04:00 49 05/18/20 04:00 96.1 52 24 110/66 (81) 100 05/18/20 00:00 50 05/18/20 00:00 97.7 60 24 107/60 (76) 100 05/17/20 21:00 Nasal Cannula 2.0 05/17/20 20:00 95 Nasal Cannula 2.0 28 05/17/20 20:00 59 05/17/20 20:00 97.5 64 24 100/60 (73) 97 05/17/20 16:00 97.7 58 20 115/65 (82) 96 05/17/20 16:00 63 Intake and Output 05/17/20 05/18/20 19:00 07:00 Intake Total 360 ml Balance 360 ml Intake Oral 360 ml # Voids 3 3 # Bowel Movements 1 Laboratory Tests Test 05/18/20 11:33 POC Whole Blood Glucose 167 MG/DL (74-106) H Objective HEAD AND NECK: no JVD. LUNGS: Coarse rhonchi. CARDIOVASCULAR: regular S1 and S2 with no gallop. ABDOMEN: Soft. EXTREMITIES: No pitting edema. Mike Easton MD May 18, 2020 13:29
--- NOTE | 2020-05-18 14:39 | Infectious Diseases Prog Note ---
Assessment/Plan Assessment/Plan A) 1) covid-19 with pna, ? cap, hypoxia 2) DM, HTN 3) sh-neg, FH-nc, mar noted 4) allergies - pcn 5) d/w RN 6) notes and records noted P) 1) continue dexamethasone, sp remdesivir, levofloxacin and vancomycin 2) monitor respiratory status 3) monitor labs and chest x-ray 4) d/w primary team 5) clinically improved, chest x-ray - 05/15/20 - improved Subjective Constitutional: Denies: fever HEENT: Reports: congestion - less Respiratory: Reports: shortness of breath - less Cardiovascular: Denies: chest pain Gastrointestinal/Abdominal: Denies: nausea, vomiting, diarrhea Genitourinary: Reports: other - no ayoub Neurologic: Denies: headache Skin: Denies: rash Hematologic: Denies: bleeding Musculoskeletal: Denies: pain Allergies: Coded Allergies: PENICILLIN G (Verified Allergy, Mild, RESPIRATORY DISTRESS, 09/16/09) Objective Last 24 Hour Vital Signs Date Time Temp Pulse Resp B/P (MAP) Pulse Ox O2 Delivery O2 Flow Rate FiO2 05/18/20 13:18 96 Nasal Cannula 2.0 28 05/18/20 12:00 66 05/18/20 09:00 78 111/74 05/18/20 08:00 97.9 78 20 111/74 (86) 97 05/18/20 08:00 70 05/18/20 04:00 49 05/18/20 04:00 96.1 52 24 110/66 (81) 100 05/18/20 00:00 50 05/18/20 00:00 97.7 60 24 107/60 (76) 100 05/17/20 21:00 Nasal Cannula 2.0 05/17/20 20:00 95 Nasal Cannula 2.0 28 05/17/20 20:00 59 05/17/20 20:00 97.5 64 24 100/60 (73) 97 05/17/20 16:00 97.7 58 20 115/65 (82) 96 05/17/20 16:00 63 Height (Feet): 5 Height (Inches): 3.00 Weight (Pounds): 175 General Appearance: no acute distress HEENT: normocephalic, atraumatic, anicteric, mucous membranes moist Respiratory/Chest: no respiratory distress, no accessory muscle use, c rackles/rales, rhonchi - bilaterally Cardiovascular: normal rate, regular rhythm, no gallop/murmur, no JVD Abdomen: normal bowel sounds, soft, non tender, no organomegaly, non distended Genitourinary: other - no ayoub Extremities: no cyanosis Skin: no rash 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 Mild improvement when compared to May 12, 2020. Follow- up chest rating up recommended. Otherwise, stable exam. Dictated By: Mike Hargrove M.D. Electronically Signed By:Mike Hargrove M.D. Signed Date/Time 05/15/20 0952 Microbiology Date/Time Source Procedure Growth Status 05/08/20 23:19 Blood Blood Culture - Final NO GROWTH AFTER 5 DAYS Complete Labs Test 05/15/20 16:35 05/16/20 04:00 05/16/20 12:10 05/16/20 16:48 POC Whole Blood Glucose 244 MG/DL (74-106) 227 MG/DL (74-106) White Blood Count 10.4 K/UL (4.8-10.8) Red Blood Count 4.26 M/UL (4.20-5.40) Hemoglobin 12.5 G/DL (12.0-16.0) Hematocrit 36.5 % (37.0-47.0) Mean Corpuscular Volume 86 FL (80-99) Mean Corpuscular Hemoglobin 29.2 PG (27.0-31.0) Mean Corpuscular Hemoglobin Concent 34.2 G/DL (32.0-36.0) Red Cell Distribution Width 12.7 % (11.6-14.8) Platelet Count 466 K/UL (150-450) Mean Platelet Volume 6.1 FL (6.5-10.1) Neutrophils (%) (Auto) 65.5 % (45.0-75.0) Lymphocytes (%) (Auto) 26.1 % (20.0-45.0) Monocytes (%) (Auto) 7.8 % (1.0-10.0) Eosinophils (%) (Auto) 0.3 % (0.0-3.0) Basophils (%) (Auto) 0.4 % (0.0-2.0) Sodium Level 137 MMOL/L (136-145) Potassium Level 4.1 MMOL/L (3.5-5.1) Chloride Level 103 MMOL/L (98-107) Carbon Dioxide Level 27 MMOL/L (21-32) Anion Gap 8 mmol/L (5-15) Blood Urea Nitrogen 19 mg/dL (7-18) Creatinine 0.7 MG/DL (0.55-1.30) Estimat Glomerular Filtration Rate > 60 mL/min (>60) Glucose Level 102 MG/DL (74-106) Calcium Level 8.4 MG/DL (8.5-10.1) Phosphorus Level 3.7 MG/DL (2.5-4.9) Magnesium Level 2.0 MG/DL (1.8-2.4) Total Bilirubin 0.5 MG/DL (0.2-1.0) Direct Bilirubin < 0.1 MG/DL (0.0-0.3) Aspartate Amino Transf (AST/SGOT) 37 U/L (15-37) Alanine Aminotransferase (ALT/SGPT) 50 U/L (12-78) Alkaline Phosphatase 39 U/L (46-116) Total Protein 6.5 G/DL (6.4-8.2) Albumin 2.7 G/DL (3.4-5.0) Globulin 3.8 g/dL Albumin/Globulin Ratio 0.7 (1.0-2.7) Test 05/16/20 22:01 05/17/20 09:55 05/18/20 11:33 POC Whole Blood Glucose 223 MG/DL (74-106) 167 MG/DL (74-106) White Blood Count 11.0 K/UL (4.8-10.8) Red Blood Count 4.21 M/UL (4.20-5.40) Hemoglobin 12.2 G/DL (12.0-16.0) Hematocrit 34.9 % (37.0-47.0) Mean Corpuscular Volume 83 FL (80-99) Mean Corpuscular Hemoglobin 28.9 PG (27.0-31.0) Mean Corpuscular Hemoglobin Concent 34.8 G/DL (32.0-36.0) Red Cell Distribution Width 12.7 % (11.6-14.8) Platelet Count 491 K/UL (150-450) Mean Platelet Volume 6.0 FL (6.5-10.1) Neutrophils (%) (Auto) 59.7 % (45.0-75.0) Lymphocytes (%) (Auto) 30.2 % (20.0-45.0) Monocytes (%) (Auto) 8.7 % (1.0-10.0) Eosinophils (%) (Auto) 0.7 % (0.0-3.0) Basophils (%) (Auto) 0.8 % (0.0-2.0) Sodium Level 135 MMOL/L (136-145) Potassium Level 3.7 MMOL/L (3.5-5.1) Chloride Level 102 MMOL/L (98-107) Carbon Dioxide Level 28 MMOL/L (21-32) Anion Gap 5 mmol/L (5-15) Blood Urea Nitrogen 24 mg/dL (7-18) Creatinine 0.8 MG/DL (0.55-1.30) Estimat Glomerular Filtration Rate > 60 mL/min (>60) Glucose Level 162 MG/DL (74-106) Calcium Level 8.1 MG/DL (8.5-10.1) Phosphorus Level 3.6 MG/DL (2.5-4.9) Magnesium Level 2.1 MG/DL (1.8-2.4) Total Bilirubin 0.4 MG/DL (0.2-1.0) Aspartate Amino Transf (AST/SGOT) 23 U/L (15-37) Alanine Aminotransferase (ALT/SGPT) 51 U/L (12-78) Alkaline Phosphatase 42 U/L (46-116) Total Protein 6.4 G/DL (6.4-8.2) Albumin 2.7 G/DL (3.4-5.0) Globulin 3.7 g/dL Albumin/Globulin Ratio 0.7 (1.0-2.7) Laboratory Tests Test 05/18/20 11:33 POC Whole Blood Glucose 167 MG/DL (74-106) H Current Medications Medications (Trade) Dose Ordered Sig/Darcie Route PRN Reason Start Time Stop Time Status Last Admin Dose Admin Acetaminophen (Tylenol) 650 mg Q4H PRN ORAL FEVER 05/09/20 03:45 06/08/20 03:44 Albuterol Sulfate (Proventil MDI) 2 puff Q4H PRN INH Shortness of Breath 05/10/20 21:30 08/08/20 21:29 Amlodipine Besylate (Norvasc) 5 mg DAILY ORAL 05/15/20 09:00 06/08/20 08:59 05/16/20 10:57 Dexamethasone Sodium Phosphate (Decadron 10mg/ ml Inj) 6 mg DAILY IV 05/10/20 09:00 05/19/20 08:59 05/18/20 09:34 Dextrose (Dextrose 50%) 25 ml Q30M PRN IV Hypoglycemia 05/09/20 04:00 08/07/20 03:59 Dextrose (Dextrose 50%) 50 ml Q30M PRN IV Hypoglycemia 05/09/20 04:00 08/07/20 03:59 Docusate Sodium (Colace) 100 mg EVERY 12 HOURS ORAL 05/09/20 09:00 06/08/20 08:59 05/18/20 09:34 Enoxaparin Sodium (Lovenox) 40 mg Q24H SUBQ 05/10/20 09:00 08/08/20 08:59 05/18/20 09:34 Famotidine (Pepcid) 20 mg DAILY ORAL 05/11/20 21:15 08/09/20 21:14 05/18/20 09:34 Guaifenesin/ Dextromethorphan (Robitussin DM Syrup) 10 ml Q4H PRN ORAL For Cough 05/10/20 03:30 08/08/20 03:29 05/12/20 23:59 Insulin Aspart (NovoLOG) BEFORE MEALS AND HS SUBQ 05/09/20 06:30 08/07/20 06:29 05/18/20 12:28 Magnesium Hydroxide (Mom) 30 ml HSPRN PRN ORAL Constipation 05/09/20 03:45 06/08/20 03:44 Pantoprazole (Protonix) 40 mg ACBREAKFAST ORAL 05/09/20 06:30 06/08/20 06:29 05/18/20 05:47 Zolpidem Tartrate (Ambien) 5 mg HSPRN ORAL 05/11/20 21:15 05/18/20 21:14 05/17/20 22:21 Vicente Yang MD May 18, 2020 14:39
[2020-05-18 16:00] VITALS: BP 109/67
--- NOTE | 2020-05-18 17:22 | General Progress Note ---
Subjective Date patient seen: May 18, 2020 ROS Limited/Unobtainable: No Allergies: Coded Allergies: PENICILLIN G (Verified Allergy, Mild, RESPIRATORY DISTRESS, 09/16/09) Subjective No acute events overnight per nursing. Patient weaning down to 2 L NC since yesterday. Reports feeling even better today, more energy, improving SOB but still SOB while moving. Review of systems: Constitutional: Denies: chills, diaphoresis, fever, malaise, weakness, HEENT: Denies: eye pain, blurred vision, double vision, ear pain, nose pain, throat pain, Cardiovascular: Denies: chest pain, edema, lightheadedness, palpitations Respiratory: See HPI Gastrointestinal/Abdominal: Denies: abdominal pain, black stools, blood in stool, constipation, diarrhea, nausea, poor fluid intake vomiting, other Genitourinary: Denies: burning, discharge, frequency, Neurologic/Psychiatric: Denies: headache, numbness, paresthesia, new weakness, other Endocrine: Denies: excessive sweating, flushing, intolerance to cold, MSK: denies joint pains, swelling, stiffness Hematologic/Lymphatic: Denies: anemia, easy bleeding, easy bruising, Objective Last 24 Hour Vital Signs Date Time Temp Pulse Resp B/P (MAP) Pulse Ox O2 Delivery O2 Flow Rate FiO2 05/18/20 16:00 54 05/18/20 16:00 97.5 60 21 109/67 (81) 97 05/18/20 13:18 96 Nasal Cannula 2.0 28 05/18/20 12:00 66 05/18/20 12:00 98.6 69 20 112/63 (79) 96 05/18/20 09:00 Nasal Cannula 2.0 05/18/20 09:00 78 111/74 05/18/20 08:00 97.9 78 20 111/74 (86) 97 05/18/20 08:00 70 05/18/20 04:00 49 05/18/20 04:00 96.1 52 24 110/66 (81) 100 05/18/20 00:00 50 05/18/20 00:00 97.7 60 24 107/60 (76) 100 05/17/20 21:00 Nasal Cannula 2.0 05/17/20 20:00 95 Nasal Cannula 2.0 28 05/17/20 20:00 59 05/17/20 20:00 97.5 64 24 100/60 (73) 97 Intake and Output 05/17/20 05/18/20 19:00 07:00 Intake Total 360 ml Balance 360 ml Intake Oral 360 ml # Voids 3 3 # Bowel Movements 1 Laboratory Tests 05/18/20 11:33: POC Whole Blood Glucose 167H 05/18/20 16:17: POC Whole Blood Glucose [Pending] Height (Feet): 5 Height (Inches): 3.00 Weight (Pounds): 175 Objective General: WDWN female in NAD, A&O x 4. On nasal cannula. Pleasant, no conversational dyspnea HEENT: Normocephalic cephalic atraumatic, pupils equal round reactive to light a nd accommodation, nares patent and no symmetrical, no tonsillar exudates, mucous membranes moist CV: Regular rate regular rhythm, no murmurs, rubs, or gallops Pulm: Lungs mildly coarse breath sounds bilaterally. No wheezes or rales GI: Soft, nontender, nondistended, bowel sounds present Neuro: CN 2-12 intact bilaterally, no focal signs. Ext: No lower extremity edema bilaterally Skin: no rashes lesions or ulcers Msk: Joints symmetrical in upper extremity and lower extremity bilaterally, no joint swelling. Lymph: No lymphadenopathy in upper extremity and lower extremity Assessment/Plan Assessment/Plan: #COVID19 PNA - improving #Sepsis due to COVID #Superimposed bacterial pneumonia CAP vs. HAP #Elevated inflammatory markers #elevated d-dimer: negative duplex and CT angio for PE #Acute hypoxic respiratory failure due to COVID - resolving - Admit to [facility] [id number] floor - Apply supplemental oxygenation as needed - decadron 6mg IV for 10days (05/09 - ) - Remdesivir per ID (05/12 - ) - Continue levaquin 750mg IV daily (05/09 - ) - Vanc per pharmacy (05/12 - ) - Abx per ID - follow cultures: NGTD - CT angio 05/12: neg for PE. Worsening infiltrates - ID consulted: Dr. Mi - Pulm consulted: D/w ALIA Allen and Dr. Lindsay - ABG reviewed - wean O2 as tolerated. Now on 2 L NC. #asymptomatic bradycardia - tele - Appreciate cardiology consult: Dr. Easton #DMT2 - SSI - Accuchecks - Hypoglycemia protocol Holding home Metformin #HTN - Norvasc 10mg daily FENPPX DVTPPX: Lovenox Diet: Diabetic PT/OT: pending improvement Code status: Full Dispo: home with home health vs rehab Reason for Continued Hospitalization: hypoxia, can consider discharge tomorrow if weaned off oxygen MIPS ([employer]-based Incentive Payment System) Applicable CPT: 30403, 96815 CHECK ALL THAT ARE MET: [] Measure #5 (CHF): All ages. Prescribe RENE/ARB upon discharge for patients with left ventricular systolic dysfunction. If not, the reason is clearly documented in the medical chart [] Measure #8 (CHF): All ages. Prescribe a beta nay upon discharge for patients with left ventricular systolic dysfunction. If not, the reason is clearly documented in the medical chart. [x] Measure #47: Advance care plan or surrogate decision maker documented in the medical record. [x] Measure #130 The provider has documented, updated, or reviewed the patients current medication list and has documented it in the patients note. [x] Measure #374 (All): Send report to referring provider. [] Measure #407(Sepsis due to MSSA bacteremia): Age 18+ Patient treated with a beta-lactam antibiotic (Nafcillin, Oxacillin or Cefazolin) as definitive therapy. MEDICAL COMPLEXITYHigh complexity medical decision making (need 2/3 categories)Problem - need 4 points [x]Acute/new problem with new plan for workup (4 points, 1 max) [] Acute/new problem without additional workup (3 points, 1 max) [x] Unstable chronic problem actively being managed (2 point each, 2 max) [x] Stable chronic problem actively being managed (1 point each, 2 max) [] Self-limited/transient process (constipation, muscle ache, etc) (1 point each, 2 max) Data - need 4 points [x] Reviewed labs/imaging studies (1 points, 2 max) [x] Independent review of imaging (EKG, xrays, etc) (2 points, 2 max) [x] Discussed case with consult/other MD/RN (2 points, 2 max) High Risk - qualify if have one of the following: [] Severe exacerbation of acute problem, acute mental status change, IV narcotics, monitoring drug levels (vancomycin, INR, tacrolimus etc) I spent 36 minutes on this patient's case, and 20 mins was dedicated to counseling and/or care coordination. Discussed with Patti MSIHRA, RN at bedside. Time of note may not reflect time of encounter Skinny Masters M.D. May 18, 2020 17:22
[2020-05-18 20:00] VITALS: BP 99/70
[2020-05-18] MEDS ORDERED: Zolpidem 5mg tab ORAL PRN (23:30)
[2020-05-19] VITALS: BP 126/72
[2020-05-19 04:00] VITALS: BP 119/76
[2020-05-19 06:54] LABS: BASOPHILS % (AUTO) 0.4 % (0.0-2.0); EOSINOPHILS % (AUTO) 0.4 % (0.0-3.0); HEMATOCRIT 40.4 % (37.0-47.0); HEMOGLOBIN 13.1 G/DL (12.0-16.0); LYMPHOCYTES % (AUTO) 32.7 % (20.0-45.0); MEAN CORPUSCULAR VOLUME 89 FL (80-99); MONOCYTES % (AUTO) 6.7 % (1.0-10.0); NEUTROPHILS % (AUTO) 59.7 % (45.0-75.0); PLATELET COUNT 458 K/UL (150-450); RED BLOOD COUNT 4.53 M/UL (4.20-5.40); RED CELL DISTRIBUTION WIDTH 12.3 % (11.6-14.8)
[2020-05-19] MEDS: NovoLOG Insulin Flexpen SUBQ SCH ×4 (06:55→21:00)
[2020-05-19 07:01] LABS: ANION GAP 6 mmol/L (5-15); BLOOD UREA NITROGEN 20 mg/dL (7-18); CALCIUM 8.6 MG/DL (8.5-10.1); CARBON DIOXIDE 28 MMOL/L (21-32); CHLORIDE 103 MMOL/L (98-107); CREATININE 0.7 MG/DL (0.55-1.30); POTASSIUM 4.2 MMOL/L (3.5-5.1); SODIUM 137 MMOL/L (136-145)
[2020-05-19 08:00] VITALS: BP 92/57
[2020-05-19] MEDS: Docusate 100mg cap ORAL SCH ×2 (09:35→21:27)
[2020-05-19] MEDS: Enoxaparin 40mg Inj SUBQ SCH (09:37)
[2020-05-19 12:00] VITALS: BP 93/51
--- NOTE | 2020-05-19 12:31 | Cardiac Electrophysiology PN ---
Assessment/Plan Assessment/Plan 1. Hypertension and bradycardia. Off p.r.n. clonidine for bradycardia. DC amlodipine as BP in 90s 2. Bradycardia. Off any sinus or AV kathi blocking agents, may be due to COVID. Watch on tele. Off Clonidine 3. COVID pneumonia, on dexamethasone and vancomycin on 4 liter NC 4. Diabetes, on insulin. SAMMIE RN Subjective Subjective Alert in NAD on 4 liter NC. BP was running in 90s in NAD Objective Last 24 Hour Vital Signs Date Time Temp Pulse Resp B/P (MAP) Pulse Ox O2 Delivery O2 Flow Rate FiO2 05/19/20 09:00 69 92/57 05/19/20 08:00 69 05/19/20 08:00 98.5 69 18 92/57 (69) 97 05/19/20 04:00 98.0 56 20 119/76 (90) 99 05/19/20 04:00 46 05/19/20 00:00 98.2 67 22 126/72 (90) 99 05/19/20 00:00 51 05/18/20 22:07 97 Nasal Cannula 2.0 28 05/18/20 21:00 Nasal Cannula 2.0 05/18/20 20:00 64 05/18/20 20:00 98.6 65 24 99/70 (80) 98 05/18/20 16:00 54 05/18/20 16:00 97.5 60 21 109/67 (81) 97 05/18/20 13:18 96 Nasal Cannula 2.0 28 Intake and Output 05/18/20 05/19/20 19:00 07:00 Intake Total 960 ml 200 ml Balance 960 ml 200 ml Intake Oral 960 ml 200 ml # Voids 2 2 Laboratory Tests Test 05/18/20 16:17 05/19/20 06:12 05/19/20 11:29 POC Whole Blood Glucose Pending 157 MG/DL (74-106) H White Blood Count 10.0 K/UL (4.8-10.8) Red Blood Count 4.53 M/UL (4.20-5.40) Hemoglobin 13.1 G/DL (12.0-16.0) Hematocrit 40.4 % (37.0-47.0) Mean Corpuscular Volume 89 FL (80-99) Mean Corpuscular Hemoglobin 28.9 PG (27.0-31.0) Mean Corpuscular Hemoglobin Concent 32.4 G/DL (32.0-36.0) Red Cell Distribution Width 12.3 % (11.6-14.8) Platelet Count 458 K/UL (150-450) H Mean Platelet Volume 6.1 FL (6.5-10.1) L Neutrophils (%) (Auto) 59.7 % (45.0-75.0) Lymphocytes (%) (Auto) 32.7 % (20.0-45.0) Monocytes (%) (Auto) 6.7 % (1.0-10.0) Eosinophils (%) (Auto) 0.4 % (0.0-3.0) Basophils (%) (Auto) 0.4 % (0.0-2.0) Sodium Level 137 MMOL/L (136-145) Potassium Level 4.2 MMOL/L (3.5-5.1) Chloride Level 103 MMOL/L (98-107) Carbon Dioxide Level 28 MMOL/L (21-32) Anion Gap 6 mmol/L (5-15) Blood Urea Nitrogen 20 mg/dL (7-18) H Creatinine 0.7 MG/DL (0.55-1.30) Estimat Glomerular Filtration Rate > 60 mL/min (>60) Glucose Level 136 MG/DL (74-106) H Calcium Level 8.6 MG/DL (8.5-10.1) Objective HEAD AND NECK: no JVD. LUNGS: Coarse rhonchi. CARDIOVASCULAR: regular S1 and S2 with no gallop. ABDOMEN: Soft. EXTREMITIES: No pitting edema. Mike Easton MD May 19, 2020 12:31
--- NOTE | 2020-05-19 12:57 | Pulmonology Progress Note ---
Subjective ROS Limited/Unobtainable: No Interval Events: remains on 2 L saturating well; bradycardia noted Constitutional: Denies: fever HEENT: Repors: no symptoms Respiratory: Reports: no symptoms; Denies: shortness of breath, dyspnea at rest Cardiovascular: Reports: no symptoms Gastrointestinal/Abdominal: Denies: nausea, vomiting, diarrhea Genitourinary: Reports: no symptoms Psychiatric: Denies: depression Skin: Denies: rash Musculoskeletal: Denies: pain Allergies: Coded Allergies: PENICILLIN G (Verified Allergy, Mild, RESPIRATORY DISTRESS, 09/16/09) Objective Last 24 Hour Vital Signs Date Time Temp Pulse Resp B/P (MAP) Pulse Ox O2 Delivery O2 Flow Rate FiO2 05/19/20 09:00 69 92/57 05/19/20 08:00 69 05/19/20 08:00 98.5 69 18 92/57 (69) 97 05/19/20 04:00 98.0 56 20 119/76 (90) 99 05/19/20 04:00 46 05/19/20 00:00 98.2 67 22 126/72 (90) 99 05/19/20 00:00 51 05/18/20 22:07 97 Nasal Cannula 2.0 28 05/18/20 21:00 Nasal Cannula 2.0 05/18/20 20:00 64 05/18/20 20:00 98.6 65 24 99/70 (80) 98 05/18/20 16:00 54 05/18/20 16:00 97.5 60 21 109/67 (81) 97 05/18/20 13:18 96 Nasal Cannula 2.0 28 Intake and Output 05/18/20 05/19/20 19:00 07:00 Intake Total 960 ml 200 ml Balance 960 ml 200 ml Intake Oral 960 ml 200 ml # Voids 2 2 Objective 05/19 saturating at 97% on 2L NC; wean down as tolerated 05/18 now on 2 L NC 05/17 now on 4L NC 05/16 saturating 94-96% 6L NC 05/15 saturating 96-97% on 14L venturi mask 05/13 pt saturating 94-95% on 15L NRB 05/12/2020 pt in bed saturating well on Venturi mask 14L 05/11/2020 pt in bed; saturating well on low flow oxygen NC General Appearance: WD/WN, no acute distress HEENT: normocephalic Respiratory: chest wall non-tender, crackles/rales - mild Cardiovascular: normal peripheral pulses, normal rate, no gallop/murmur Abdomen: soft, non tender Laboratory Tests 05/18/20 16:17: POC Whole Blood Glucose [Pending] 05/19/20 06:12: White Blood Count 10.0, Red Blood Count 4.53, Hemoglobin 13.1, Hematocrit 40.4, Mean Corpuscular Volume 89, Mean Corpuscular Hemoglobin 28.9, Mean Corpuscular Hemoglobin Concent 32.4, Red Cell Distribution Width 12.3, Platelet Count 458H, Mean Platelet Volume 6.1L, Neutrophils (%) (Auto) 59.7, Lymphocytes (%) (Auto) 32.7, Monocytes (%) (Auto) 6.7, Eosinophils (%) (Auto) 0.4, Basophils (%) (Auto) 0.4, Sodium Level 137, Potassium Level 4.2, Chloride Level 103, Carbon Dioxide Level 28, Anion Gap 6, Blood Urea Nitrogen 20H, Creatinine 0.7, Estimat Glomerular Filtration Rate > 60, Glucose Level 136H, Calcium Level 8.6 05/19/20 11:29: POC Whole Blood Glucose 157H Current Medications Medications (Trade) Dose Ordered Sig/Darcie Route PRN Reason Start Time Stop Time Status Last Admin Dose Admin Acetaminophen (Tylenol) 650 mg Q4H PRN ORAL FEVER 05/09/20 03:45 06/08/20 03:44 Albuterol Sulfate (Proventil MDI) 2 puff Q4H PRN INH Shortness of Breath 05/10/20 21:30 08/08/20 21:29 Dextrose (Dextrose 50%) 25 ml Q30M PRN IV Hypoglycemia 05/09/20 04:00 08/07/20 03:59 Dextrose (Dextrose 50%) 50 ml Q30M PRN IV Hypoglycemia 05/09/20 04:00 08/07/20 03:59 Docusate Sodium (Colace) 100 mg EVERY 12 HOURS ORAL 05/09/20 09:00 06/08/20 08:59 05/19/20 09:35 Enoxaparin Sodium (Lovenox) 40 mg Q24H SUBQ 05/10/20 09:00 08/08/20 08:59 05/19/20 09:37 Famotidine (Pepcid) 20 mg DAILY ORAL 05/11/20 21:15 08/09/20 21:14 05/19/20 09:34 Guaifenesin/ Dextromethorphan (Robitussin DM Syrup) 10 ml Q4H PRN ORAL For Cough 05/10/20 03:30 08/08/20 03:29 05/12/20 23:59 Insulin Aspart (NovoLOG) BEFORE MEALS AND HS SUBQ 05/09/20 06:30 08/07/20 06:29 05/19/20 06:55 Magnesium Hydroxide (Mom) 30 ml HSPRN PRN ORAL Constipation 05/09/20 03:45 06/08/20 03:44 Pantoprazole (Protonix) 40 mg ACBREAKFAST ORAL 05/09/20 06:30 06/08/20 06:29 05/19/20 05:54 Zolpidem Tartrate (Ambien) 5 mg HSPRN PRN ORAL Insomnia 05/18/20 23:30 05/25/20 23:29 05/18/20 23:36 Assessment/Plan Assessment/Plan 1. COVID-19 pneumonia. - completed decadron - completed remdesivir, Vanco - CXR 05/12 shows worsening right, new left infiltrates likely focal pneumonia - CXR 05/14 Mild improvement when compared to 05/12 - s/p one time dose lasix - now off Levaquin 2. Elevated inflammatory markers - CTA chest 05/12 neg for PE 3. History of hypertension. - on amlodipine - clonidine prn dc'd for bradycardia 4. Diabetes mellitus. 5. Respiratory distress. - now on 2 L NC saturating well - wean down as tolerated 6. Leukocytosis; improved DVT ppx DC planning per PMD We will follow carefully. The care for this patient was discussed with my supervising physician. Time spent for this case was approximately 31 minutes. Alejandro Mckenna May 19, 2020 12:57 Olivier Lindsay MD May 19, 2020 13:47
--- NOTE | 2020-05-19 14:54 | General Progress Note ---
Subjective Date patient seen: May 19, 2020 ROS Limited/Unobtainable: No Allergies: Coded Allergies: PENICILLIN G (Verified Allergy, Mild, RESPIRATORY DISTRESS, 09/16/09) Subjective No acute events overnight. Patient stable and weaning down to 1-2 L NC oxygen today. Reports SOB improved even while moving to commode. BP in 90s SBP but patient denies WRAY, lightheadedness, chest pain and generally doing well. Review of systems: Constitutional: Denies: chills, diaphoresis, fever, malaise, weakness, HEENT: Denies: eye pain, blurred vision, double vision, ear pain, nose pain, throat pain, Cardiovascular: Denies: chest pain, edema, lightheadedness, palpitations Respiratory: See HPI Gastrointestinal/Abdominal: Denies: abdominal pain, black stools, blood in stool, constipation, diarrhea, nausea, poor fluid intake vomiting, other Genitourinary: Denies: burning, discharge, frequency, Neurologic/Psychiatric: Denies: headache, numbness, paresthesia, new weakness, other Endocrine: Denies: excessive sweating, flushing, intolerance to cold, MSK: denies joint pains, swelling, stiffness Hematologic/Lymphatic: Denies: anemia, easy bleeding, easy bruising, Objective Last 24 Hour Vital Signs Date Time Temp Pulse Resp B/P (MAP) Pulse Ox O2 Delivery O2 Flow Rate FiO2 05/19/20 12:00 97.7 65 18 93/51 (65) 96 05/19/20 12:00 71 05/19/20 09:00 Nasal Cannula 2.0 05/19/20 09:00 69 92/57 05/19/20 08:00 69 05/19/20 08:00 98.5 69 18 92/57 (69) 97 05/19/20 04:00 98.0 56 20 119/76 (90) 99 05/19/20 04:00 46 05/19/20 00:00 98.2 67 22 126/72 (90) 99 05/19/20 00:00 51 05/18/20 22:07 97 Nasal Cannula 2.0 28 05/18/20 21:00 Nasal Cannula 2.0 05/18/20 20:00 64 05/18/20 20:00 98.6 65 24 99/70 (80) 98 12/23/20 16:00 54 05/18/20 16:00 97.5 60 21 109/67 (81) 97 Intake and Output 05/18/20 05/19/20 19:00 07:00 Intake Total 960 ml 200 ml Balance 960 ml 200 ml Intake Oral 960 ml 200 ml # Voids 2 2 Laboratory Tests 05/18/20 16:17: POC Whole Blood Glucose [Pending] 05/19/20 06:12: White Blood Count 10.0, Red Blood Count 4.53, Hemoglobin 13.1, Hematocrit 40.4, Mean Corpuscular Volume 89, Mean Corpuscular Hemoglobin 28.9, Mean Corpuscular Hemoglobin Concent 32.4, Red Cell Distribution Width 12.3, Platelet Count 458H, Mean Platelet Volume 6.1L, Neutrophils (%) (Auto) 59.7, Lymphocytes (%) (Auto) 32.7, Monocytes (%) (Auto) 6.7, Eosinophils (%) (Auto) 0.4, Basophils (%) (Auto) 0.4, Sodium Level 137, Potassium Level 4.2, Chloride Level 103, Carbon Dioxide Level 28, Anion Gap 6, Blood Urea Nitrogen 20H, Creatinine 0.7, Estimat Glomerular Filtration Rate > 60, Glucose Level 136H, Calcium Level 8.6 05/19/20 11:29: POC Whole Blood Glucose 157H Height (Feet): 5 Height (Inches): 3.00 Weight (Pounds): 175 Objective General: WDWN female in NAD, A&O x 4. On nasal cannula. Pleasant, no convers ational dyspnea. No orthostasis noted. HEENT: Normocephalic cephalic atraumatic, pupils equal round reactive to light and accommodation, nares patent and no symmetrical, no tonsillar exudates, mucous membranes moist CV: Regular rate regular rhythm, no murmurs, rubs, or gallops Pulm: Lungs mildly coarse breath sounds bilaterally. No wheezes or rales GI: Soft, nontender, nondistended, bowel sounds present Neuro: CN 2-12 intact bilaterally, no focal signs. Intact strength 5/5 BUE. Ext: No lower extremity edema bilaterally Skin: no rashes lesions or ulcers Msk: Joints symmetrical in upper extremity and lower extremity bilaterally, no joint swelling. Lymph: No lymphadenopathy in upper extremity and lower extremity Assessment/Plan Assessment/Plan: #COVID19 PNA - improving #Sepsis due to COVID #Superimposed bacterial pneumonia CAP vs. HAP #Elevated inflammatory markers #elevated d-dimer: negative duplex and CT angio for PE #Acute hypoxic respiratory failure due to COVID - resolving - Admit to [facility] floor - Apply supplemental oxygenation as needed - completed decadron 6mg IV - completed Remdesivir per ID - completed antibiotics levaquin 750mg IV daily - Completed Vancomycin - follow cultures: NGTD - CT angio 05/12: neg for PE. Worsening infiltrates - ID consulted: Dr. Mi - Pulm consulted: D/w ALIA Allen and Dr. Lindsay - RADHA reviewed - wean O2 as tolerated. Will try to wean to room air. #asymptomatic bradycardia - tele - Appreciate cardiology consult: Dr. Easton #DMT2 - SSI - Accuchecks - Hypoglycemia protocol Holding home Metformin #HTN - BP borderline low today - discontinue Norvasc 10mg daily FENPPX DVTPPX: Lovenox Diet: Diabetic PT/OT: pending improvement Code status: Full Dispo: home with home health vs rehab Reason for Continued Hospitalization: hypoxia, can consider discharge tomorrow if weaned off oxygen MIPS (Merit-based Incentive Payment System) Applicable CPT: 81706, 38089 CHECK ALL THAT ARE MET: [] Measure #5 (CHF): All ages. Prescribe RENE/ARB upon discharge for patients with left ventricular systolic dysfunction. If not, the reason is clearly documented in the medical chart [] Measure #8 (CHF): All ages. Prescribe a beta nay upon discharge for patients with left ventricular systolic dysfunction. If not, the reason is clearly documented in the medical chart. [x] Measure #47: Advance care plan or surrogate decision maker documented in the medical record. [x] Measure #130 The provider has documented, updated, or reviewed the patients current medication list and has documented it in the patients note. [x] Measure #374 (All): Send report to referring provider. [] Measure #407(Sepsis due to MSSA bacteremia): Age 18+ Patient treated with a beta-lactam antibiotic (Nafcillin, Oxacillin or Cefazolin) as definitive therapy. MEDICAL COMPLEXITYHigh complexity medical decision making (need 2/3 categories)Problem - need 4 points [x]Acute/new problem with new plan for workup (4 points, 1 max) [] Acute/new problem without additional workup (3 points, 1 max) [x] Unstable chronic problem actively being managed (2 point each, 2 max) [x] Stable chronic problem actively being managed (1 point each, 2 max) [] Self-limited/transient process (constipation, muscle ache, etc) (1 point each, 2 max) Data - need 4 points [x] Reviewed labs/imaging studies (1 points, 2 max) [x] Independent review of imaging (EKG, xrays, etc) (2 points, 2 max) [x] Discussed case with consult/other MD/RN (2 points, 2 max) High Risk - qualify if have one of the following: [] Severe exacerbation of acute problem, acute mental status change, IV narcotics, monitoring drug levels (vancomycin, INR, tacrolimus etc) I spent 40 minutes on this patient's case, and 23 mins was dedicated to counseling and/or care coordination. Discussed with Patti MISHRA, RN at bedside. Time of note may not reflect time of encounter Skinny Masters M.D. May 19, 2020 14:54
[2020-05-19 16:00] VITALS: BP 97/62
[2020-05-19 20:00] VITALS: BP 117/75
[2020-05-20] VITALS: BP 117/62
[2020-05-20 04:00] VITALS: BP 129/80
[2020-05-20] MEDS: NovoLOG Insulin Flexpen SUBQ SCH ×4 (06:30→21:00)
--- NOTE | 2020-05-20 06:56 | Cardiac Electrophysiology PN ---
Assessment/Plan Assessment/Plan 1. Hypertension DCed amlodipine as BP in 90s 2. Bradycardia with HR 38 and 2.56 sec pause on 05/13. Off p.r.n. clonidine Off any sinus or AV kathi blocking agents, may be due to COVID. Watch on tele. Off Clonidine 3. Nonsustained VT 9 betas on 05/17/20. Cant use BB for bradycardia. Echo Nl EF 65% 4. COVID pneumonia, on dexamethasone and vancomycin on 4 liter NC 5. Diabetes, on insulin. SAMMIE RN Subjective Subjective Alert in NAD on 2 liter NC. BP was running in 90s in NAD HAd angel with HR 38 on 05/13 with pauses of more than 2.5 seconds. Had 9 beats of V Tach on 05/17 Objective Last 24 Hour Vital Signs Date Time Temp Pulse Resp B/P (MAP) Pulse Ox O2 Delivery O2 Flow Rate FiO2 05/20/20 04:00 97.8 76 19 129/80 (96) 97 05/20/20 04:00 68 05/20/20 00:00 96.5 62 20 117/62 (80) 99 05/20/20 00:00 59 05/19/20 21:00 Nasal Cannula 2.0 05/19/20 20:00 52 05/19/20 20:00 97.9 59 20 117/75 (89) 97 05/19/20 19:18 97 Nasal Cannula 2.0 28 05/19/20 16:00 69 05/19/20 16:00 97.7 77 18 97/62 (74) 97 05/19/20 12:00 97.7 65 18 93/51 (65) 96 05/19/20 12:00 71 05/19/20 09:00 Nasal Cannula 2.0 05/19/20 09:00 69 92/57 05/19/20 08:00 69 05/19/20 08:00 98.5 69 18 92/57 (69) 97 05/19/20 07:30 97 Nasal Cannula 2.0 28 Intake and Output 05/19/20 05/20/20 19:00 07:00 Intake Total 850 ml 400 ml Output Total 300 ml Balance 550 ml 400 ml Intake Oral 850 ml 400 ml Output Urine Total 300 ml # Voids 2 Laboratory Tests Test 05/19/20 11:29 05/19/20 16:34 05/19/20 21:24 05/20/20 05:52 POC Whole Blood Glucose 157 MG/DL (74-106) H 190 MG/DL (74-106) H 124 MG/DL (74-106) H 116 MG/DL (74-106) H Test 05/20/20 06:11 White Blood Count Pending Red Blood Count Pending Hemoglobin Pending Hematocrit Pending Mean Corpuscular Volume Pending Mean Corpuscular Hemoglobin Pending Mean Corpuscular Hemoglobin Concent Pending Red Cell Distribution Width Pending Platelet Count Pending Mean Platelet Volume Pending Neutrophils (%) (Auto) Pending Lymphocytes (%) (Auto) Pending Monocytes (%) (Auto) Pending Eosinophils (%) (Auto) Pending Basophils (%) (Auto) Pending Sodium Level Pending Potassium Level Pending Chloride Level Pending Carbon Dioxide Level Pending Blood Urea Nitrogen Pending Creatinine Pending Estimat Glomerular Filtration Rate Pending Glucose Level Pending Calcium Level Pending Objective HEAD AND NECK: no JVD. LUNGS: Coarse rhonchi. CARDIOVASCULAR: regular S1 and S2 with no gallop. ABDOMEN: Soft. EXTREMITIES: No pitting edema. Mike Easton MD May 20, 2020 06:56
[2020-05-20 07:01] LABS: BASOPHILS % (AUTO) 1.1 % (0.0-2.0); HEMATOCRIT 36.4 % (37.0-47.0); HEMOGLOBIN 12.6 G/DL (12.0-16.0); LYMPHOCYTES % (AUTO) 32.7 % (20.0-45.0); MEAN CORPUSCULAR VOLUME 84 FL (80-99); MONOCYTES % (AUTO) 7.2 % (1.0-10.0); NEUTROPHILS % (AUTO) 57.9 % (45.0-75.0); PLATELET COUNT 430 K/UL (150-450); RED BLOOD COUNT 4.31 M/UL (4.20-5.40); RED CELL DISTRIBUTION WIDTH 13.1 % (11.6-14.8)
[2020-05-20 07:46] LABS: ANION GAP 5 mmol/L (5-15); BLOOD UREA NITROGEN 25 mg/dL (7-18); CARBON DIOXIDE 29 MMOL/L (21-32); CHLORIDE 105 MMOL/L (98-107); CREATININE 0.8 MG/DL (0.55-1.30); POTASSIUM 5.2 MMOL/L (3.5-5.1); SODIUM 139 MMOL/L (136-145)
[2020-05-20 07:54] LABS: CALCIUM 8.6 MG/DL (8.5-10.1)
[2020-05-20 08:00] VITALS: BP 109/69
[2020-05-20] MEDS: Docusate 100mg cap ORAL SCH ×2 (08:54→20:57)
[2020-05-20] MEDS: Enoxaparin 40mg Inj SUBQ SCH (08:56)
--- NOTE | 2020-05-20 10:55 | Pulmonology Progress Note ---
Subjective ROS Limited/Unobtainable: No Interval Events: no major event on room air overnight Constitutional: Denies: fever HEENT: Repors: no symptoms Respiratory: Reports: no symptoms; Denies: shortness of breath, dyspnea at rest Cardiovascular: Reports: no symptoms Gastrointestinal/Abdominal: Denies: nausea, vomiting, diarrhea Genitourinary: Reports: no symptoms Psychiatric: Denies: depression Skin: Denies: rash Musculoskeletal: Denies: pain Allergies: Coded Allergies: PENICILLIN G (Verified Allergy, Mild, RESPIRATORY DISTRESS, 09/16/09) Objective Last 24 Hour Vital Signs Date Time Temp Pulse Resp B/P (MAP) Pulse Ox O2 Delivery O2 Flow Rate FiO2 05/20/20 04:00 97.8 76 19 129/80 (96) 97 05/20/20 04:00 68 05/20/20 00:00 96.5 62 20 117/62 (80) 99 05/20/20 00:00 59 05/19/20 21:00 Nasal Cannula 2.0 05/19/20 20:00 52 05/19/20 20:00 97.9 59 20 117/75 (89) 97 05/19/20 19:18 97 Nasal Cannula 2.0 28 05/19/20 16:00 69 05/19/20 16:00 97.7 77 18 97/62 (74) 97 05/19/20 12:00 97.7 65 18 93/51 (65) 96 05/19/20 12:00 71 Intake and Output 05/19/20 05/20/20 19:00 07:00 Intake Total 850 ml 400 ml Output Total 300 ml Balance 550 ml 400 ml Intake Oral 850 ml 400 ml Output Urine Total 300 ml # Voids 2 Objective 05/20 room air since yesterday afternoon; saturating at 97% stable 05/19 saturating at 97% on 2L NC; wean down as tolerated 05/18 now on 2 L NC 05/17 now on 4L NC 05/16 saturating 94-96% 6L NC 05/15 saturating 96-97% on 14L venturi mask 05/13 pt saturating 94-95% on 15L NRB 05/12/2020 pt in bed saturating well on Venturi mask 14L 05/11/2020 pt in bed; saturating well on low flow oxygen NC General Appearance: WD/WN, no acute distress HEENT: normocephalic Respiratory: chest wall non-tender Cardiovascular: normal peripheral pulses, normal rate, no gallop/murmur Abdomen: soft, non tender Laboratory Tests 05/19/20 11:29: POC Whole Blood Glucose 157H 05/19/20 16:34: POC Whole Blood Glucose 190H 05/19/20 21:24: POC Whole Blood Glucose 124H 05/20/20 05:52: POC Whole Blood Glucose 116H 05/20/20 06:11: White Blood Count 12.0H, Red Blood Count 4.31, Hemoglobin 12.6, Hematocrit 36.4L , Mean Corpuscular Volume 84, Mean Corpuscular Hemoglobin 29.2, Mean Corpuscular Hemoglobin Concent 34.7, Red Cell Distribution Width 13.1, Platelet Count 430, Mean Platelet Volume 6.7, Neutrophils (%) (Auto) 57.9, Lymphocytes (%) (Auto) 32.7, Monocytes (%) (Auto) 7.2, Eosinophils (%) (Auto) 1.0, Basophils (%) (Auto) 1.1, Sodium Level 139, Potassium Level 5.2H, Chloride Level 105, Carbon Dioxide Level 29, Anion Gap 5, Blood Urea Nitrogen 25H, Creatinine 0.8, Estimat Glomerular Filtration Rate > 60, Glucose Level 112H, Calcium Level 8.6 Current Medications Medications (Trade) Dose Ordered Sig/Darcie Route PRN Reason Start Time Stop Time Status Last Admin Dose Admin Acetaminophen (Tylenol) 650 mg Q4H PRN ORAL FEVER 05/09/20 03:45 06/08/20 03:44 Albuterol Sulfate (Proventil MDI) 2 puff Q4H PRN INH Shortness of Breath 05/10/20 21:30 08/08/20 21:29 Dextrose (Dextrose 50%) 25 ml Q30M PRN IV Hypoglycemia 05/09/20 04:00 08/07/20 03:59 Dextrose (Dextrose 50%) 50 ml Q30M PRN IV Hypoglycemia 05/09/20 04:00 08/07/20 03:59 Docusate Sodium (Colace) 100 mg EVERY 12 HOURS ORAL 05/09/20 09:00 06/08/20 08:59 05/20/20 08:54 Enoxaparin Sodium (Lovenox) 40 mg Q24H SUBQ 05/10/20 09:00 08/08/20 08:59 05/20/20 08:56 Famotidine (Pepcid) 20 mg DAILY ORAL 05/11/20 21:15 08/09/20 21:14 05/20/20 08:54 Guaifenesin/ Dextromethorphan (Robitussin DM Syrup) 10 ml Q4H PRN ORAL For Cough 05/10/20 03:30 08/08/20 03:29 05/12/20 23:59 Insulin Aspart (NovoLOG) BEFORE MEALS AND HS SUBQ 05/09/20 06:30 08/07/20 06:29 05/19/20 16:43 Magnesium Hydroxide (Mom) 30 ml HSPRN PRN ORAL Constipation 05/09/20 03:45 06/08/20 03:44 Pantoprazole (Protonix) 40 mg ACBREAKFAST ORAL 05/09/20 06:30 06/08/20 06:29 05/20/20 06:31 Zolpidem Tartrate (Ambien) 5 mg HSPRN PRN ORAL Insomnia 05/18/20 23:30 05/25/20 23:29 05/18/20 23:36 Assessment/Plan Assessment/Plan 1. COVID-19 pneumonia. - completed decadron - completed remdesivir, Vanco - CXR 05/14 Mild improvement when compared to 05/12 - s/p one time dose lasix - now off Levaquin 2. Elevated inflammatory markers - CTA chest 05/12 neg for PE 3. History of hypertension. - on amlodipine - clonidine prn dc'd for bradycardia 4. Diabetes mellitus. 5. Respiratory distress. - on room air saturating well since yesterday afternoon 6. Leukocytosis; improved DVT ppx DC planning per PMD Medically stable for dc from pulmonary stand point of view The care for this patient was discussed with my supervising physician. Time spent for this case was approximately 31 minutes. Alejandro Mckenna May 20, 2020 10:55 Olivier Lindsay MD May 20, 2020 12:01
[2020-05-20 12:00] VITALS: BP 110/96
[2020-05-20 12:36] LABS: ANION GAP 3 mmol/L (5-15); BLOOD UREA NITROGEN 23 mg/dL (7-18); CALCIUM 8.6 MG/DL (8.5-10.1); CARBON DIOXIDE 29 MMOL/L (21-32); CHLORIDE 106 MMOL/L (98-107); CREATININE 0.8 MG/DL (0.55-1.30); POTASSIUM 5.3 MMOL/L (3.5-5.1); SODIUM 138 MMOL/L (136-145)
--- NOTE | 2020-05-20 14:37 | General Progress Note ---
Subjective Date patient seen: May 20, 2020 ROS Limited/Unobtainable: No Allergies: Coded Allergies: PENICILLIN G (Verified Allergy, Mild, RESPIRATORY DISTRESS, 09/16/09) Subjective No acute events overnight. Patient stable and weaned off of supplemental oxygen since yesterday. Reports feeling generally well. Reports concerns about discharge plan. Review of systems: Constitutional: Denies: chills, diaphoresis, fever, malaise, weakness, HEENT: Denies: eye pain, blurred vision, double vision, ear pain, nose pain, throat pain, Cardiovascular: Denies: chest pain, edema, lightheadedness, palpitations Respiratory: denies worsening SOB Gastrointestinal/Abdominal: Denies: abdominal pain, black stools, blood in stool, constipation, diarrhea, nausea, poor fluid intake vomiting, other Genitourinary: Denies: burning, discharge, frequency, Neurologic/Psychiatric: Denies: headache, numbness, paresthesia, new weakness, other Endocrine: Denies: excessive sweating, flushing, intolerance to cold, MSK: denies joint pains, swelling, stiffness Hematologic/Lymphatic: Denies: anemia, easy bleeding, easy bruising, Objective Last 24 Hour Vital Signs Date Time Temp Pulse Resp B/P (MAP) Pulse Ox O2 Delivery O2 Flow Rate FiO2 05/20/20 12:00 71 05/20/20 12:00 98.1 87 19 110/96 (101) 98 05/20/20 09:00 Room Air 05/20/20 08:00 98.7 72 21 109/69 (82) 96 05/20/20 08:00 82 05/20/20 04:00 97.8 76 19 129/80 (96) 97 05/20/20 04:00 68 05/20/20 00:00 96.5 62 20 117/62 (80) 99 05/20/20 00:00 59 05/19/20 21:00 Nasal Cannula 2.0 05/19/20 20:00 52 05/19/20 20:00 97.9 59 20 117/75 (89) 97 05/19/20 19:18 97 Nasal Cannula 2.0 28 05/19/20 16:00 69 05/19/20 16:00 97.7 77 18 97/62 (74) 97 Intake and Output 05/19/20 05/20/20 19:00 07:00 Intake Total 850 ml 400 ml Output Total 300 ml Balance 550 ml 400 ml Intake Oral 850 ml 400 ml Output Urine Total 300 ml # Voids 2 Laboratory Tests 05/19/20 16:34: POC Whole Blood Glucose 190H 05/19/20 21:24: POC Whole Blood Glucose 124H 05/20/20 05:52: POC Whole Blood Glucose 116H 05/20/20 06:11: White Blood Count 12.0H, Red Blood Count 4.31, Hemoglobin 12.6, Hematocrit 36.4L , Mean Corpuscular Volume 84, Mean Corpuscular Hemoglobin 29.2, Mean Corpuscular Hemoglobin Concent 34.7, Red Cell Distribution Width 13.1, Platelet Count 430, Mean Platelet Volume 6.7, Neutrophils (%) (Auto) 57.9, Lymphocytes (%) (Auto) 32.7, Monocytes (%) (Auto) 7.2, Eosinophils (%) (Auto) 1.0, Basophils (%) (Auto) 1.1, Sodium Level 139, Potassium Level 5.2H, Chloride Level 105, Carbon Dioxide Level 29, Anion Gap 5, Blood Urea Nitrogen 25H, Creatinine 0.8, Estimat Glomerular Filtration Rate > 60, Glucose Level 112H, Calcium Level 8.6 05/20/20 11:21: POC Whole Blood Glucose 167H 05/20/20 12:16: Sodium Level 138, Potassium Level 5.3H, Chloride Level 106, Carbon Dioxide Level 29, Anion Gap 3L, Blood Urea Nitrogen 23H, Creatinine 0.8, Estimat Glomerular Filtration Rate > 60, Glucose Level 121H, Calcium Level 8.6 Height (Feet): 5 Height (Inches): 3.00 Weight (Pounds): 175 Objective General: WDWN female in NAD, A&O x 4. On room air. Pleasant, no conversational dyspnea. HEENT: Normocephalic cephalic atraumatic, pupils equal round reactive to light and accommodation, nares patent and no symmetrical, no tonsillar exudates, mucous membranes moist CV: Regular rate regular rhythm, no murmurs, rubs, or gallops Pulm: Lungs mildly coarse breath sounds bilaterally. No wheezes or rales GI: Soft, nontender, nondistended, bowel sounds present Neuro: CN 2-12 intact bilaterally, no focal signs. Intact strength 5/5 BUE. Ext: No lower extremity edema bilaterally Skin: no rashes lesions or ulcers Msk: Joints symmetrical in upper extremity and lower extremity bilaterally, no joint swelling. Lymph: No lymphadenopathy in upper extremity and lower extremity Assessment/Plan Assessment/Plan: #COVID19 PNA - improving #Sepsis due to COVID #Superimposed bacterial pneumonia CAP vs. HAP #Elevated inflammatory markers #elevated d-dimer: negative duplex and CT angio for PE #Acute hypoxic respiratory failure due to COVID - resolved - Admit to [facility] floor - Apply supplemental oxygenation as needed - completed decadron 6mg IV - completed Remdesivir per ID - completed antibiotics levaquin 750mg IV daily - Completed Vancomycin - follow cultures: NGTD - CT angio 05/12: neg for PE. Worsening infiltrates - ID consulted: Dr. Mi - Pulm consulted: D/w ALIA Allen and Dr. Lindsay - ABG reviewed #Hyperkalemia Repeat BMP checked with persistence of elevated K. - no symptoms or chest pain or arrhythmia noted - Nephrology consult Dr. Ashton #asymptomatic bradycardia - tele - Appreciate cardiology consult: Dr. Easton #DMT2 - SSI - Accuchecks - Hypoglycemia protocol Holding home Metformin #HTN - BP borderline low today - discontinue Norvasc 10mg daily FENPPX DVTPPX: Lovenox Diet: Diabetic PT/OT: pending improvement Code status: Full Dispo: home with home health vs rehab Reason for Continued Hospitalization: PT evaluation for discharge planning MIPS (Merit-based Incentive Payment System) Applicable CPT: 33043, 56427 CHECK ALL THAT ARE MET: [] Measure #5 (CHF): All ages. Prescribe RENE/ARB upon discharge for patients with left ventricular systolic dysfunction. If not, the reason is clearly do cumented in the medical chart [] Measure #8 (CHF): All ages. Prescribe a beta nay upon discharge for patients with left ventricular systolic dysfunction. If not, the reason is clearly documented in the medical chart. [x] Measure #47: Advance care plan or surrogate decision maker documented in the medical record. [x] Measure #130 The provider has documented, updated, or reviewed the patients current medication list and has documented it in the patients note. [x] Measure #374 (All): Send report to referring provider. [] Measure #407(Sepsis due to MSSA bacteremia): Age 18+ Patient treated with a beta-lactam antibiotic (Nafcillin, Oxacillin or Cefazolin) as definitive therapy. MEDICAL COMPLEXITYHigh complexity medical decision making (need 2/3 cat egories)Problem - need 4 points [x]Acute/new problem with new plan for workup (4 points, 1 max) [] Acute/new problem without additional workup (3 points, 1 max) [x] Unstable chronic problem actively being managed (2 point each, 2 max) [x] Stable chronic problem actively being managed (1 point each, 2 max) [] Self-limited/transient process (constipation, muscle ache, etc) (1 point each, 2 max) Data - need 4 points [x] Reviewed labs/imaging studies (1 points, 2 max) [x] Independent review of imaging (EKG, xrays, etc) (2 points, 2 max) [x] Discussed case with consult/other MD/RN (2 points, 2 max) High Risk - qualify if have one of the following: [] Severe exacerbation of acute problem, acute mental status change, IV narcotics, monitoring drug levels (vancomycin, INR, tacrolimus etc) I spent 38 minutes on this patient's case, and 28 mins was dedicated to counseling and/or care coordination. Discussed with Patti MISHRA, RN at bedside. Time of note may not reflect time of encounter Skinny Masters M.D. May 20, 2020 14:37
[2020-05-20 16:00] VITALS: BP 120/70
[2020-05-20 20:00] VITALS: BP 103/65
[2020-05-21] VITALS: BP 108/67
[2020-05-21 04:00] VITALS: BP 96/65
[2020-05-21 05:24] LABS: BASOPHILS % (AUTO) 0.9 % (0.0-2.0); EOSINOPHILS % (AUTO) 1.3 % (0.0-3.0); HEMATOCRIT 32.9 % (37.0-47.0); HEMOGLOBIN 11.6 G/DL (12.0-16.0); LYMPHOCYTES % (AUTO) 24.1 % (20.0-45.0); MEAN CORPUSCULAR VOLUME 84 FL (80-99); MONOCYTES % (AUTO) 7.3 % (1.0-10.0); NEUTROPHILS % (AUTO) 66.5 % (45.0-75.0); PLATELET COUNT 366 K/UL (150-450); RED BLOOD COUNT 3.93 M/UL (4.20-5.40); RED CELL DISTRIBUTION WIDTH 13.7 % (11.6-14.8)
[2020-05-21 05:37] LABS: ANION GAP 7 mmol/L (5-15); BLOOD UREA NITROGEN 20 mg/dL (7-18); CALCIUM 7.9 MG/DL (8.5-10.1); CARBON DIOXIDE 26 MMOL/L (21-32); CHLORIDE 105 MMOL/L (98-107); CREATININE 0.8 MG/DL (0.55-1.30); POTASSIUM 3.8 MMOL/L (3.5-5.1); SODIUM 138 MMOL/L (136-145)
[2020-05-21] MEDS: NovoLOG Insulin Flexpen SUBQ SCH ×2 (05:38→11:30)
[2020-05-21 08:00] VITALS: BP 103/55
[2020-05-21] MEDS: Enoxaparin 40mg Inj SUBQ SCH (08:39)
[2020-05-21] MEDS: Docusate 100mg cap ORAL SCH (08:40)
--- NOTE | 2020-05-21 11:21 | Consultation ---
History of Present Illness General Chief Complaint: Dyspnea/Respdistress Reason for Consultation: Hyperkalemia Present Illness HPI 60YO F who has a past medical history for DM2, HTN and reports back to the ED after initially been seen on 05/04 for progressing symptoms of dyspnea. She initially seen in the ED on 05/04 and confirmed for COVID19 PNA. She was discharged from the ED due to stable vitals. She reports back due to episodic hypoxia noted on her pulse ox at home. She reports with saturations in the low 80's. In the ED, she is hers saturation on RM is 94-98%. However her CXR has slightly worsened airspace disease as well as her inflammatory markers. She received lovenox 40mg SQ, Levaquin 750mg IV and decardron 10mg IV in the ED. Allergies: Coded Allergies: PENICILLIN G (Verified Allergy, Mild, RESPIRATORY DISTRESS, 09/16/09) Medication History Scheduled Amlodipine Besylate* (Amlodipine Besylate*), 5 MG ORAL DAILY Doxycycline Hyclate* (Vibramycin*), 100 MG ORAL DAILY, (Reported) Ivermectin (Ivermectin), 4 TAB PO DAILY, (Reported) Losartan Potassium* (Losartan Potassium*), 50 MG ORAL DAILY, (Reported) Metformin Hcl* (Metformin Hcl*), 1,000 MG ORAL DAILY Metformin Hcl* (Metformin Hcl*), 500 MG ORAL BEFORE DINNER Patient History Healthcare decision maker Resuscitation status Advanced Directive on File Review of Systems All Other Systems: negative except mentioned in HPI Physical Exam Last 24 Hour Vital Signs Date Time Temp Pulse Resp B/P (MAP) Pulse Ox O2 Delivery O2 Flow Rate FiO2 05/21/20 09:00 Room Air 05/21/20 08:00 79 05/21/20 08:00 97.9 85 20 103/55 (71) 98 05/21/20 04:00 67 05/21/20 04:00 97.5 73 20 96/65 (75) 97 05/21/20 00:00 64 05/21/20 00:00 97.7 73 20 108/67 (81) 97 05/20/20 21:00 Room Air 05/20/20 20:00 68 05/20/20 20:00 97.7 67 20 103/65 (78) 96 05/20/20 16:00 62 12/25/20 16:00 98.7 80 19 120/70 (87) 97 05/20/20 12:00 71 05/20/20 12:00 98.1 87 19 110/96 (101) 98 Intake and Output 05/20/20 05/21/20 19:00 07:00 Intake Total 140 ml Output Total 1200 ml Balance -1060 ml Intake Oral 140 ml Output Urine Total 1200 ml # Voids 3 Laboratory Tests Test 05/20/20 12:16 05/20/20 16:35 05/20/20 21:02 05/21/20 04:05 Sodium Level 138 MMOL/L (136-145) 138 MMOL/L (136-145) Potassium Level 5.3 MMOL/L (3.5-5.1) H 3.8 MMOL/L (3.5-5.1) Chloride Level 106 MMOL/L (98-107) 105 MMOL/L (98-107) Carbon Dioxide Level 29 MMOL/L (21-32) 26 MMOL/L (21-32) Anion Gap 3 mmol/L (5-15) L 7 mmol/L (5-15) Blood Urea Nitrogen 23 mg/dL (7-18) H 20 mg/dL (7-18) H Creatinine 0.8 MG/DL (0.55-1.30) 0.8 MG/DL (0.55-1.30) Estimat Glomerular Filtration Rate > 60 mL/min (>60) > 60 mL/min (>60) Glucose Level 121 MG/DL (74-106) H 148 MG/DL (74-106) H Calcium Level 8.6 MG/DL (8.5-10.1) 7.9 MG/DL (8.5-10.1) L POC Whole Blood Glucose 135 MG/DL (74-106) H 126 MG/DL (74-106) H White Blood Count 11.0 K/UL (4.8-10.8) H Red Blood Count 3.93 M/UL (4.20-5.40) L Hemoglobin 11.6 G/DL (12.0-16.0) L Hematocrit 32.9 % (37.0-47.0) L Mean Corpuscular Volume 84 FL (80-99) Mean Corpuscular Hemoglobin 29.5 PG (27.0-31.0) Mean Corpuscular Hemoglobin Concent 35.2 G/DL (32.0-36.0) Red Cell Distribution Width 13.7 % (11.6-14.8) Platelet Count 366 K/UL (150-450) Mean Platelet Volume 6.8 FL (6.5-10.1) Neutrophils (%) (Auto) 66.5 % (45.0-75.0) Lymphocytes (%) (Auto) 24.1 % (20.0-45.0) Monocytes (%) (Auto) 7.3 % (1.0-10.0) Eosinophils (%) (Auto) 1.3 % (0.0-3.0) Basophils (%) (Auto) 0.9 % (0.0-2.0) Test 05/21/20 05:34 POC Whole Blood Glucose 116 MG/DL (74-106) H Height (Feet): 5 Height (Inches): 3.00 Weight (Pounds): 175 Medications Current Medications Medications (Trade) Dose Ordered Sig/Darcie Route PRN Reason Start Time Stop Time Status Last Admin Dose Admin Acetaminophen (Tylenol) 650 mg Q4H PRN ORAL FEVER 05/09/20 03:45 06/08/20 03:44 Albuterol Sulfate (Proventil MDI) 2 puff Q4H PRN INH Shortness of Breath 05/10/20 21:30 08/08/20 21:29 Dextrose (Dextrose 50%) 25 ml Q30M PRN IV Hypoglycemia 05/09/20 04:00 08/07/20 03:59 Dextrose (Dextrose 50%) 50 ml Q30M PRN IV Hypoglycemia 05/09/20 04:00 08/07/20 03:59 Docusate Sodium (Colace) 100 mg EVERY 12 HOURS ORAL 05/09/20 09:00 06/08/20 08:59 05/20/20 20:57 Enoxaparin Sodium (Lovenox) 40 mg Q24H SUBQ 05/10/20 09:00 08/08/20 08:59 05/21/20 08:39 Famotidine (Pepcid) 20 mg DAILY ORAL 05/11/20 21:15 08/09/20 21:14 05/21/20 08:31 Guaifenesin/ Dextromethorphan (Robitussin DM Syrup) 10 ml Q4H PRN ORAL For Cough 05/10/20 03:30 08/08/20 03:29 05/12/20 23:59 Insulin Aspart (NovoLOG) BEFORE MEALS AND HS SUBQ 05/09/20 06:30 08/07/20 06:29 05/20/20 12:30 Magnesium Hydroxide (Mom) 30 ml HSPRN PRN ORAL Constipation 05/09/20 03:45 06/08/20 03:44 Pantoprazole (Protonix) 40 mg ACBREAKFAST ORAL 05/09/20 06:30 06/08/20 06:29 05/21/20 05:39 Zolpidem Tartrate (Ambien) 5 mg HSPRN PRN ORAL Insomnia 05/18/20 23:30 05/25/20 23:29 05/18/20 23:36 Assessment/Plan Diagnosis [place]: #Hyperkalemia- s/p kayexalate - improved #COVID19 PNA - improving #Sepsis due to COVID #Superimposed bacterial pneumonia CAP vs. HAP #Elevated inflammatory markers #elevated d-dimer: negative duplex and CT angio for PE #Acute hypoxic respiratory failure due to COVID - resolved #asymptomatic bradycardia #DMT2 #HTN - K improved after keyaxalate - monitor BMP - discontinue Norvasc 10mg daily - avoid nephrotoxins - monitor UOP - monitor bladder scan Shreyas Ashton M.D. May 21, 2020 11:21
--- NOTE | 2020-05-21 11:45 | Pulmonology Progress Note ---
Subjective ROS Limited/Unobtainable: No Interval Events: None new reported Constitutional: Denies: fever HEENT: Repors: no symptoms Respiratory: Reports: no symptoms; Denies: shortness of breath, dyspnea at rest Cardiovascular: Reports: no symptoms Gastrointestinal/Abdominal: Denies: nausea, vomiting, diarrhea Genitourinary: Reports: no symptoms Psychiatric: Denies: depression Skin: Denies: rash Musculoskeletal: Denies: pain Allergies: Coded Allergies: PENICILLIN G (Verified Allergy, Mild, RESPIRATORY DISTRESS, 09/16/09) Objective Last 24 Hour Vital Signs Date Time Temp Pulse Resp B/P (MAP) Pulse Ox O2 Delivery O2 Flow Rate FiO2 05/21/20 09:00 Room Air 05/21/20 08:00 79 05/21/20 08:00 97.9 85 20 103/55 (71) 98 05/21/20 04:00 67 05/21/20 04:00 97.5 73 20 96/65 (75) 97 05/21/20 00:00 64 05/21/20 00:00 97.7 73 20 108/67 (81) 97 05/20/20 21:00 Room Air 05/20/20 20:00 68 05/20/20 20:00 97.7 67 20 103/65 (78) 96 05/20/20 16:00 62 05/20/20 16:00 98.7 80 19 120/70 (87) 97 05/20/20 12:00 71 05/20/20 12:00 98.1 87 19 110/96 (101) 98 Intake and Output 05/20/20 05/21/20 19:00 07:00 Intake Total 140 ml Output Total 1200 ml Balance -1060 ml Intake Oral 140 ml Output Urine Total 1200 ml # Voids 3 General Appearance: WD/WN, no acute distress HEENT: normocephalic Respiratory: chest wall non-tender Cardiovascular: normal peripheral pulses, normal rate, no gallop/murmur Abdomen: soft, non tender Laboratory Tests 05/20/20 12:16: Sodium Level 138, Potassium Level 5.3H, Chloride Level 106, Carbon Dioxide Level 29, Anion Gap 3L, Blood Urea Nitrogen 23H, Creatinine 0.8, Estimat Glomerular Filtration Rate > 60, Glucose Level 121H, Calcium Level 8.6 05/20/20 16:35: POC Whole Blood Glucose 135H 05/20/20 21:02: POC Whole Blood Glucose 126H 05/21/20 04:05: Sodium Level 138, Potassium Level 3.8, Chloride Level 105, Carbon Dioxide Level 26, Anion Gap 7, Blood Urea Nitrogen 20H, Creatinine 0.8, Estimat Glomerular Filtration Rate > 60, Glucose Level 148H, Calcium Level 7.9L, White Blood Count 11.0H, Red Blood Count 3.93L, Hemoglobin 11.6L, Hematocrit 32.9L, Mean Corpuscular Volume 84, Mean Corpuscular Hemoglobin 29.5, Mean Corpuscular Hemoglobin Concent 35.2, Red Cell Distribution Width 13.7, Platelet Count 366, Mean Platelet Volume 6.8, Neutrophils (%) (Auto) 66.5, Lymphocytes (%) (Auto) 24.1, Monocytes (%) (Auto) 7.3, Eosinophils (%) (Auto) 1.3, Basophils (%) (Auto) 0.9 05/21/20 05:34: POC Whole Blood Glucose 116H 05/21/20 11:37: POC Whole Blood Glucose 107H Current Medications Medications (Trade) Dose Ordered Sig/Darcie Route PRN Reason Start Time Stop Time Status Last Admin Dose Admin Acetaminophen (Tylenol) 650 mg Q4H PRN ORAL FEVER 05/09/20 03:45 06/08/20 03:44 Albuterol Sulfate (Proventil MDI) 2 puff Q4H PRN INH Shortness of Breath 05/10/20 21:30 08/08/20 21:29 Dextrose (Dextrose 50%) 25 ml Q30M PRN IV Hypoglycemia 05/09/20 04:00 08/07/20 03:59 Dextrose (Dextrose 50%) 50 ml Q30M PRN IV Hypoglycemia 05/09/20 04:00 08/07/20 03:59 Docusate Sodium (Colace) 100 mg EVERY 12 HOURS ORAL 05/09/20 09:00 06/08/20 08:59 05/20/20 20:57 Enoxaparin Sodium (Lovenox) 40 mg Q24H SUBQ 05/10/20 09:00 08/08/20 08:59 05/21/20 08:39 Famotidine (Pepcid) 20 mg DAILY ORAL 05/11/20 21:15 08/09/20 21:14 05/21/20 08:31 Guaifenesin/ Dextromethorphan (Robitussin DM Syrup) 10 ml Q4H PRN ORAL For Cough 05/10/20 03:30 08/08/20 03:29 05/12/20 23:59 Insulin Aspart (NovoLOG) BEFORE MEALS AND HS SUBQ 05/09/20 06:30 08/07/20 06:29 05/20/20 12:30 Magnesium Hydroxide (Mom) 30 ml HSPRN PRN ORAL Constipation 05/09/20 03:45 06/08/20 03:44 Pantoprazole (Protonix) 40 mg ACBREAKFAST ORAL 05/09/20 06:30 06/08/20 06:29 05/21/20 05:39 Zolpidem Tartrate (Ambien) 5 mg HSPRN PRN ORAL Insomnia 05/18/20 23:30 05/25/20 23:29 05/18/20 23:36 Assessment/Plan Assessment/Plan 1. COVID-19 pneumonia. - completed decadron - completed remdesivir, Vanco - CXR 05/14 Mild improvement when compared to 05/12 - s/p one time dose lasix - now off Levaquin 2. Elevated inflammatory markers - CTA chest 05/12 neg for PE 3. History of hypertension. - on amlodipine - clonidine prn dc'd for bradycardia 4. Diabetes mellitus. 5. Respiratory distress. - on room air saturating well 6. Leukocytosis; improved DVT ppx DC planning per PMD Medically stable for dc from pulmonary stand point of view Olivier Lindsay MD May 21, 2020 11:45
[2020-05-21 12:00] VITALS: BP 109/68
[2020-05-21] MEDS ORDERED: METFORMIN HCL1000 M1 ORAL (12:58)
[2020-05-21] MEDS ORDERED: AMLODIPINE BESYL5 MG ORAL (12:58)
[2020-05-21] MEDS ORDERED: METFORMIN HCL500 M1 ORAL (12:58)
--- NOTE | 2020-05-21 13:12 | Discharge Instructions ---
Discharge Instructions Discharge Instructions Follow up with: primary care physician for a routine follow up appointment Call MD/Return to Hospital if: symptoms worsen or fail to improve Diet: diabetic calorie control Resume Normal Activity?: Yes Special Instructions Follow up with your primary care physician for a routine outpatient appointment. Continue to follow social distancing and mask guidelines even though you have recovered from COVID-19 infection. CDC Guidelines for COVID-19: People who have tested positive for COVID-19 do not need to quarantine or get tested again for up to 3 months as long as they do not develop symptoms again. People who develop symptoms again within 3 months of their first bout of COVID- 19 may need to be tested again if there is no other cause identified for their symptoms. For Congestive Heart Failure Reminder Report to your physician any weight gain of 5 pounds or more in one week. Skinny Masters M.D. May 21, 2020 13:12
--- NOTE | 2020-05-21 13:15 | Discharge Summary ---
Discharge Summary Hospital Course Date of Admission May 09, 2020 at 00:38 Date of Discharge 05/21/2020 Admitting Diagnosis covid pneumonia HPI Mike Mora is a 60 year old female who was admitted on May 09, 2020 at 00:38 for Covid Pneumonia Hospital Course #COVID19 PNA - improving #Sepsis due to COVID #Superimposed bacterial pneumonia CAP vs. HAP #Elevated inflammatory markers #elevated d-dimer: negative duplex and CT angio for PE #Acute hypoxic respiratory failure due to COVID - resolved - Admit to COVID19 floor - Apply supplemental oxygenation as needed - completed decadron 6mg IV - completed Remdesivir per ID - completed antibiotics levaquin 750mg IV daily - Completed Vancomycin - follow cultures: NGTD - CT angio 05/12: neg for PE. Worsening infiltrates - ID consulted: Dr. Mi - Pulm consulted: D/w ALIA Allen and Dr. Lindsay - AB reviewed #Hyperkalemia Repeat BMP checked with persistence of elevated K. - no symptoms or chest pain or arrhythmia noted - Nephrology consult Dr. Ashton #asymptomatic bradycardia - tele - Appreciate cardiology consult: Dr. Easton #DMT2 - SSI - Accuchecks - Hypoglycemia protocol Holding home Metformin #HTN - BP borderline low today - discontinue Norvasc 10mg daily FENPPX DVTPPX: Lovenox Diet: Diabetic PT/OT: pending improvement Code status: Full Dispo: home with home health vs rehab Reason for Continued Hospitalization: PT evaluation for discharge planning MIPS (Merit-based Incentive Payment System) Applicable CPT: 55997, 30176 CHECK ALL THAT ARE MET: [] Measure #5 (CHF): All ages. Prescribe RENE/ARB upon discharge for patients with left ventricular systolic dysfunction. If not, the reason is clearly documented in the medical chart [] Measure #8 (CHF): All ages. Prescribe a beta nay upon discharge for patients with left ventricular systolic dysfunction. If not, the reason is clearly documented in the medical chart. [x] Measure #47: Advance care plan or surrogate decision maker documented in the medical record. [x] Measure #130 The provider has documented, updated, or reviewed the patients current medication list and has documented it in the patients note. [x] Measure #374 (All): Send report to referring provider. [] Measure #407(Sepsis due to MSSA bacteremia): Age 18+ Patient treated with a beta-lactam antibiotic (Nafcillin, Oxacillin or Cefazolin) as definitive therapy. MEDICAL COMPLEXITYHigh complexity medical decision making (need 2/3 categories)Problem - need 4 points [x]Acute/new problem with new plan for workup (4 points, 1 max) [] Acute/new problem without additional workup (3 points, 1 max) [x] Unstable chronic problem actively being managed (2 point each, 2 max) [x] Stable chronic problem actively being managed (1 point each, 2 max) [] Self-limited/transient process (constipation, muscle ache, etc) (1 point each, 2 max) Data - need 4 points [x] Reviewed labs/imaging studies (1 points, 2 max) [x] Independent review of imaging (EKG, xrays, etc) (2 points, 2 max) [x] Discussed case with consult/other MD/RN (2 points, 2 max) High Risk - qualify if have one of the following: [] Severe exacerbation of acute problem, acute mental status change, IV narcotics, monitoring drug levels (vancomycin, INR, tacrolimus etc) I spent 38 minutes on this patient's case, and 28 mins was dedicated to counseling and/or care coordination. Discussed with Patti MISHRA, RN at bedside. Time of note may not reflect time of encounter Discharge Condition Upon Discharge: improving Discharge Vital Signs Last Vital Signs Date Time Temp Pulse Resp B/P (MAP) Pulse Ox O2 Delivery O2 Flow Rate FiO2 05/21/20 12:00 98.6 76 18 109/68 (82) 97 05/21/20 09:00 Room Air 05/19/20 21:00 2.0 05/19/20 19:18 28 Discharge Disposition Patient was discharged to home Discharge Diagnoses: (1) COVID-19 (2) Pneumonia Discharge Instructions Discharge Instructions Follow up with: primary care physician for a routine follow up appointment Call MD/Return to Hospital if: symptoms worsen or fail to improve Skinny Masters M.D. May 21, 2020 13:15
== END 2020-05-21 14:45 | disposition home or self-care (01) | DRG 871 ==
LOC: EMR 22:53 → 4E 05-09 00:38 → EDBEDREQ 05-09 02:25 → 2E 05-12 22:10
DX: A41.89 Other specified sepsis (principal); U07.1 COVID-19; J12.89 Other viral pneumonia; J96.01 Acute respiratory failure with hypoxia; J15.9 Unspecified bacterial pneumonia; I10 Essential (primary) hypertension; E11.9 Type 2 diabetes mellitus without complications; R00.0 Tachycardia, unspecified; R00.1 Bradycardia, unspecified; E87.5 Hyperkalemia
CPT/HCPCS: 36415; 71045; 71275; 80048; 80053; 80202; 82248; 82728; 82803; 82962; 83605; 83615; 83735; 83880; 84100; 84484; 85007; 85025; 85379; 85610; 85730; 86140; 87040; 93005; 93306; 93970; 96361; 96365; 96375; 99285; J3490; J7030

== ENCOUNTER 2020-07-24 15:14 | Emergency (ER) | payer OTHER ==
[~2020-07-24] VITALS: Ht 160 cm; Wt 76.2 kg
[~2020-07-24 15:14] MED LIST changes: +AMLODIPINE BESY10 MG ORAL; +IVERMECTIN3 MG PO; +LOSARTAN POTASS50 MG ORAL; +VIBRAMYCIN100 MG ORAL
[2020-07-24 15:47] VITALS: BP 146/82
--- NOTE | 2020-07-24 15:50 | NUR ---
Patient reported to ER with c/o accidental ingestion of Clorox Bleach. Patient reported that she had the bottles( water and Clorox Bleach) side by side and accidently ingested the bleach when taking her pills. She reported that she immediately started to feel sick with burning to her throat. She tried to make herself vomit but was not very successful. AAOX4. Allergy: SARAH Barks[place]. Independently ambulatory. No syncopal episodes noted.
--- NOTE | 2020-07-24 15:54 | NUR ---
pt arrived for accidental ingestion of chemical. pt ambulatory, a&Ox4. pt denies si attempt. md at bedside with pt.
--- NOTE | 2020-07-24 15:59 | Emergency Room Report ---
History of Present Illness General Chief Complaint: General Complaint Source: Patient Present Illness HPI Disclaimer: Please note that this report is being documented using DRAGON technology. This can lead to erroneous entry secondary to incorrect interpretation by the dictating instrument. HPI: 60-year-old female presents after accidental bleach ingestion. The patient had a water bottle filled with 2% Clorox bleach while she was cleaning a bathroom. She went to take her medications accidentally grabbed the wrong bottle bottle and took a small mouthful of bleach with her pills. Noted a bitter taste and realized which she had done drank some water and then induced one episode of vomiting. She is now feeling well. This occurred approximately 3 hours ago. She denies pain in the mouth, swelling, tongue sores, neck pain, difficulty swallowing, difficulty breathing, chest pain, palpitations, nausea, abdominal pain or other symptoms at this time. Patient states she came at the request of her daughter but otherwise was feeling well and was not in a come in. States this is completely accidental and simply mixed up the water bottle in the bottle of bleach that she had diluted. No other complaints at this time. 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 COVID-19 Screening: Negative COVID-19 COVID-19 Testing Source: Job testing Patient History Last Menstrual Period: 34 years ago Now: No : 2 Para: 2 Nursing Documentation-PMH Past Medical History: No Stated History Hx Cardiac Problems: Yes Hx Hypertension: Yes Hx Diabetes: Yes Hx Cancer: No Hx Gastrointestinal Problems: Yes Hx Neurological Problems: Yes Hx Cerebrovascular Accident: Yes Review of Systems All Other Systems: negative except mentioned in HPI Physical Exam Vital Signs Date Time Temp Pulse Resp B/P (MAP) Pulse Ox O2 Delivery O2 Flow Rate FiO2 07/24/20 15:36 97.9 74 16 146/82 (103) 95 Room Air 07/24/20 15:47 96 General: Awake and alert, no acute distress HEENT: NC/AT. EOMI. PERRLA. No scleral injection, no edema. No ulcers, edema, erythema or other findings in the oral mucosa. Uvula midline with 1+ not obstructing tonsils. Speaking with a normal phonation. Tolerating secretions. No lymphadenopathy or mass noted in the neck. No crepitus. Nares are patent. No edema, erythema or mucosal breakdown. Cardiovascular: RRR. S1 and S2 normal. No murmur appreciated Resp: Normal work of breathing. No cough, wheezing or crackles appreciated Abdomen: Abdomen is soft, nondistended. Nontender Skin: Intact. No abrasions, laceration or rash over the exposed skin MSK: Normal tone and bulk. Moving all extremities. No obvious deformity. Neuro: Awake and alert. Mentating appropriately. Medical Decision Making Diagnostic Impression: Primary Impression: Accidental ingestion of potentially harmful entity ER Course 60-year-old female presents after accidentally ingesting household bleach. Occurred several hours ago patient was able to tolerate water afterwards though she did induce vomiting once. She is feeling well now and I find no evidence of caustic [place] to the mucosa. She has no apparent airway involvement is otherwise well-appearing. Do not believe she requires emergent labs or imaging as this was diluted household bleach. Do not believe this was intentional; patient appears earnest that this was an accident done out of haste while cleaning. Believe she is stable for outpatient follow-up. She lives close by and states she would return immediately if she experienced any swelling, difficulty tolerating secretions, changes in her voice or other symptoms. She understands and agrees with the treatment plan. Last Vital Signs Date Time Temp Pulse Resp B/P (MAP) Pulse Ox O2 Delivery O2 Flow Rate FiO2 07/24/20 15:47 16 Room Air 96 07/24/20 15:47 97.9 146/82 96 07/24/20 15:36 74 Disposition: HOME, SELF-CARE Condition: Stable Additional Instructions: Return to the emergency department if you develop any difficulty swallowing, swelling in your throat, painful lesions in the tongue, difficulty breathing, cough, congestion, chest pain, abdominal pain, severe vomiting or any other symptoms Frankie Daley MD Jul 24, 2020 15:59
--- NOTE | 2020-07-24 15:59 | NUR ---
ER DISCHARGE NOTE: Patient is cleared to be discharged per ERMD, pt is aox4, on room air, with stable vital signs. pt was given dc instructions, pt was able to verbalize understanding, pt id band removed without complications. pt is able to ambulate with steady gait. pt took all belongings.
== END 2020-07-24 16:00 | disposition home or self-care (01) ==
LOC: EMR 15:58
DX: T54.91XA Toxic effect of unspecified corrosive substance, accidental (unintentional), initial encounter (principal); X58.XXXA Exposure to other specified factors, initial encounter; Y92.9 Unspecified place or not applicable; Z88.0 Allergy status to penicillin; I10 Essential (primary) hypertension; E11.9 Type 2 diabetes mellitus without complications; Z86.73 Personal history of transient ischemic attack (TIA), and cerebral infarction without residual deficits
CPT/HCPCS: 99281